=== PATIENT | male | born 2000 | race Caucasian/White ===

== ENCOUNTER 2022-01-16 23:44 | Inpatient (IN) ==
--- NOTE | 2022-01-17 00:24 | Emergency Department Note ---
Impression & Plan Suicidal ideation Admit to [facility]. ED Provider Note NAME: VINCENT WALTON AGE: 21 SEX: M ARRIVES VIA: Walk-In INFORMANT: Patient ED PROVIDER(S): Courtney Vanessa DO CHIEF COMPLAINT: Anxious and suicidal PLAN: Disposition: Admit to 3 S. Condition: Stable MEDICAL DECISION MAKING: This is a 21-year-old male patient who presents to the emergency department with feelings of anxiety, paranoia and feeling suicidal. Patient had been admitted to [facility] in December for 1 week but over the past 3 days his symptoms have worsened. The patient had been calling crisis more frequently over the past couple of days. He voiced suicidal thoughts to myself, the shoe caser and nursing staff here. He is willing to admit himself voluntarily for inpatient psychiatric care. Patient was medically cleared and accepted to [facility]. Triage Nursing notes reviewed and agree with them. Vital Signs: reviewed and unremarkable Differential diagnosis: Mood disorder, thought disorder, drug abuse, suicidal ideation Diagnostics interpreted by me: Laboratory studies: See below HPI: 21/M arrives for evaluation of paranoia, anxiety and anger issues. Patient has become increasingly anxious and paranoid over the past 3 days and has feelings that he just wants to . Patient explains that he just wants to waste away because he feels like he is a burden to his family. The patient has been calling crisis multiple times a day over the past 3 days. He had been admitted to [facility] psych facility on December 17 for 6 days. He felt that he was doing okay until 3 days ago when symptoms seem to have worsened. He got into an argument this evening with his [id number]-[id number] who told him to get out of their home in he returned to his own home and was concerned about being alone. ROS: See above HPI for pertinent positives & negatives. A total of 10 systems reviewed and were otherwise negative. PAST MEDICAL HISTORY:Depression, anxiety PAST SURGICAL HISTORY:None SOCIAL HISTORY:Patient currently lives alone. He does have the medical marijuana card. He denies any alcohol use. HOME MEDICATIONS:See list ALLERGIES:See list VITALS:See Below PHYSICAL EXAMINATION: HEENT: Head - normocephalic and atraumatic. Pupils are equal, round, and reactive to light. Extraocular eye muscles are intact, and sclera are anicteric. Nose - moist nasal mucosa without discharge. Mouth - moist buccal mucosa. Oropharynx is nonerythematous and there is no tonsillar exudate or raymond a noted. Neck: Supple; no cervical lymphadenopathy Heart: Regular rate and rhythm. There is a normal S1 and S2 with no murmurs, clicks, or gallops appreciated. Lungs: Clear to auscultation bilaterally with no wheezes, rales, or rhonchi. Abdomen: Soft, completely nontender, nondistended, with good bowel sounds. There are no palpable pulsatile masses or hepatosplenomegaly. There is no guarding, rigidity, or rebound noted. Extremities: No evidence of cyanosis, clubbing, or edema. There are easily palpable peripheral pulses. Skin: warm and dry with good turgor and no rashes. Psych: Normal affect; denies any drug or alcohol use today. Patient stated that he just wants to because he feels as if he is a burden to his family. He describes an episode of holding a knife to his throat in September but no specific plan for suicide since then. Willing to admit himself voluntarily for inpatient psychiatric care. ED COURSE: Times/Reassessments: 2355: Patient was evaluated in room A7. Laboratory studies were drawn as above. The patient was felt to be medically cleared. He was willing to admit himself voluntarily for inpatient psychiatric care. He was evaluated by 3 S. They have accepted him for admission. He will go to the floor around morning shift change. Courtney Vanessa, DO Past Med/Surg History Social History Smoking Status: Former smoker Preferred Language: Telugu Feels Safe at Home: Hesitant to Answer Allergies Allergies Allergy/AdvReac Type Severity Reaction Status Date / Time cat dander Allergy Unverified 01/17/22 04:15 Penicillins Allergy Unverified 01/17/22 04:15 Home Meds Home Medications Medication Instructions Recorded Confirmed bupropion HCl 300 mg 24 hr tablet, 300 mg PO QAM 01/17/22 01/17/22 extended release (Wellbutrin XL) fexofenadine 180 mg tablet 180 mg PO DAILY 01/17/22 01/17/22 propranolol 60 mg capsule,24 60 mg PO DAILY 01/17/22 01/17/22 hr,extended release sertraline 100 mg tablet (Zoloft) 100 mg PO DAILY 01/17/22 01/17/22 Results & Data (ED) Vital Signs Vital Signs - 24 hr 01/16/22 23:47 Temperature 35.8 C L Temperature Source Temporal Artery Scan Pulse Rate 99 H Respiratory Rate 18 Blood Pressure 139/90 Blood Pressure Mean 106 Pulse Oximetry 98 Oxygen Delivery Method Room Air Sepsis Recent Fever Within 48 Hours No Sepsis New/Unexplained Change in Mental Status No Sepsis Action Taken by Nursing No Action Required Laboratory Data Result diagrams: 01/17/22 00:33 01/17/22 00:33 Lab Results 01/17/22 01/17/22 01/17/22 Range/Units 00:20 00: 00:33 WBC 6.54 (4.8-10.8) K/uL RBC 5.11 (4.7-6.1) M/uL Hgb 16.2 (14.0-18.0) g/dL Hct 45.0 (42-52) % MCV 88.1 (80-100) fL MCH 31.7 (25-34) pg MCHC 36.0 (32-36) g/dL RDW Std Deviation 37.2 (36.4-46.3) fL RDW Coeff of Amada 11.5 (11.5-14.5) % Plt Count 205 (130-400) K/uL MPV 9.3 (7.4-10.4) fL Immature Gran % (Auto) 0.2 % Neut % (Auto) 58.0 % Lymph % (Auto) 29.4 % [place] % (Auto) 9.6 % Eos % (Auto) 2.6 % Baso % (Auto) 0.2 % Neut # (Auto) 3.80 (1.4-6.5) K/uL Lymph # (Auto) 1.92 (1.2-3.4) K/uL [place] # (Auto) 0.63 H (0.11-0.59) K/uL Eos # (Auto) 0.17 (0-0.5) K/uL Baso # (Auto) 0.01 (0-0.2) K/uL Immature Gran # (Auto) 0.01 (0.00-0.02) K/uL Sodium (136-145) mmol/L Potassium (3.5-5.1) mmol/L Chloride (98-107) mmol/L Carbon Dioxide (21-32) mmol/L Anion Gap (3-11) BUN (6-23) mg/dl Creatinine (0.6-1.4) mg/dl Est Cr Clr Drug Dosing ml/min Est GFR ( Amer) ml/min Est GFR (Non-Af Amer) ml/min BUN/Creatinine Ratio (10-20) Glucose (70-99(Fasting)) mg/dl Calcium (8.5-10.1) mg/dl Total Bilirubin (0.2-1.0) mg/dl AST (13-39) U/L ALT (7-52) U/L Alkaline Phosphatase (34-104) U/L Total Protein (6.0-8.3) gm/dl Albumin (3.4-5.0) gm/dl Globulin (2.5-4.0) gm/dl Albumin/Globulin Ratio (0.9-2) TSH (0.300-4.500) uIu/ml Urine Color Urine Appearance (Clear) Urine pH (4.5-7.5) Ur Specific Theresa (1.000-1.030) Urine Protein (Negative) Urine Glucose (UA) (Negative) Urine Ketones (Negative) Urine Blood (Negative) Urine Nitrite (Negative) Urine Bilirubin (Negative) Urine Urobilinogen (Negative) Ur Leukocyte Esterase (Negative) Salicylates (3.0-30) mg/dl Urine Opiates Screen Neg (Neg) Ur Methadone, Qual Neg (Neg) Acetaminophen (10-30) ug/ml Urine Barbiturates Neg (Neg) Ur Phencyclidine (PCP) Neg (Neg) U Amphetamin/Meth Scrn Neg (Neg) MDMA (Ecstasy) Screen Pos H (Neg) U Benzodiazepines Scrn Neg (Neg) Ur Cocaine Metabolite Neg (Neg) U Marijuana (THC) Screen Pos H (Neg) Ethyl Alcohol mg/dL (<10.0) mg/dl SARS-CoV-2, RNA, NAAT NEGATIVE (NEGATIVE) 01/17/22 01/17/22 01/17/22 Range/Units 00:33 00:33 00:33 WBC (4.8-10.8) K/uL RBC (4.7-6.1) M/uL Hgb (14.0-18.0) g/dL Hct (42-52) % MCV (80-100) fL MCH (25-34) pg MCHC (32-36) g/dL RDW Std Deviation (36.4-46.3) fL RDW Coeff of Amada (11.5-14.5) % Plt Count (130-400) K/uL MPV (7.4-10.4) fL Immature Gran % (Auto) % Neut % (Auto) % Lymph % (Auto) % [place] % (Auto) % Eos % (Auto) % Baso % (Auto) % Neut # (Auto) (1.4-6.5) K/uL Lymph # (Auto) (1.2-3.4) K/uL [place] # (Auto) (0.11-0.59) K/uL Eos # (Auto) (0-0.5) K/uL Baso # (Auto) (0-0.2) K/uL Immature Gran # (Auto) (0.00-0.02) K/uL Sodium 133 L (136-145) mmol/L Potassium 3.6 (3.5-5.1) mmol/L Chloride 102 (98-107) mmol/L Carbon Dioxide 21 (21-32) mmol/L Anion Gap 10 (3-11) BUN 14 (6-23) mg/dl Creatinine 1.05 (0.6-1.4) mg/dl Est Cr Clr Drug Dosing 130.5 ml/min Est GFR ( Amer) 117.9 ml/min Est GFR (Non-Af Amer) 101.7 ml/min BUN/Creatinine Ratio 13.3 (10-20) Glucose 79 (70-99(Fasting)) mg/dl Calcium 9.3 (8.5-10.1) mg/dl Total Bilirubin 0.8 (0.2-1.0) mg/dl AST 14 (13-39) U/L ALT 11 (7-52) U/L Alkaline Phosphatase 69 (34-104) U/L Total Protein 7.2 (6.0-8.3) gm/dl Albumin 4.4 (3.4-5.0) gm/dl Globulin 2.8 (2.5-4.0) gm/dl Albumin/Globulin Ratio 1.6 (0.9-2) TSH 3.195 (0.300-4.500) uIu/ml Urine Color Urine Appearance (Clear) Urine pH (4.5-7.5) Ur Specific Theresa (1.000-1.030) Urine Protein (Negative) Urine Glucose (UA) (Negative) Urine Ketones (Negative) Urine Blood (Negative) Urine Nitrite (Negative) Urine Bilirubin (Negative) Urine Urobilinogen (Negative) Ur Leukocyte Esterase (Negative) Salicylates < 3.0 L (3.0-30) mg/dl Urine Opiates Screen (Neg) Ur Methadone, Qual (Neg) Acetaminophen < 3 L (10-30) ug/ml Urine Barbiturates (Neg) Ur Phencyclidine (PCP) (Neg) U Amphetamin/Meth Scrn (Neg) MDMA (Ecstasy) Screen (Neg) U Benzodiazepines Scrn (Neg) Ur Cocaine Metabolite (Neg) U Marijuana (THC) Screen (Neg) Ethyl Alcohol mg/dL (<10.0) mg/dl SARS-CoV-2, RNA, NAAT (NEGATIVE) 01/17/22 01/17/22 Range/Units 00:33 02:25 WBC (4.8-10.8) K/uL RBC (4.7-6.1) M/uL Hgb (14.0-18.0) g/dL Hct (42-52) % MCV (80-100) fL MCH (25-34) pg MCHC (32-36) g/dL RDW Std Deviation (36.4-46.3) fL RDW Coeff of Amada (11.5-14.5) % Plt Count (130-400) K/uL MPV (7.4-10.4) fL Immature Gran % (Auto) % Neut % (Auto) % Lymph % (Auto) % [place] % (Auto) % Eos % (Auto) % Baso % (Auto) % Neut # (Auto) (1.4-6.5) K/uL Lymph # (Auto) (1.2-3.4) K/uL [place] # (Auto) (0.11-0.59) K/uL Eos # (Auto) (0-0.5) K/uL Baso # (Auto) (0-0.2) K/uL Immature Gran # (Auto) (0.00-0.02) K/uL Sodium (136-145) mmol/L Potassium (3.5-5.1) mmol/L Chloride (98-107) mmol/L Carbon Dioxide (21-32) mmol/L Anion Gap (3-11) BUN (6-23) mg/dl Creatinine (0.6-1.4) mg/dl Est Cr Clr Drug Dosing ml/min Est GFR ( Amer) ml/min Est GFR (Non-Af Amer) ml/min BUN/Creatinine Ratio (10-20) Glucose (70-99(Fasting)) mg/dl Calcium (8.5-10.1) mg/dl Total Bilirubin (0.2-1.0) mg/dl AST (13-39) U/L ALT (7-52) U/L Alkaline Phosphatase (34-104) U/L Total Protein (6.0-8.3) gm/dl Albumin (3.4-5.0) gm/dl Globulin (2.5-4.0) gm/dl Albumin/Globulin Ratio (0.9-2) TSH (0.300-4.500) uIu/ml Urine Color Yellow Urine Appearance Clear (Clear) Urine pH 5.5 (4.5-7.5) Ur Specific Theresa 1.004 (1.000-1.030) Urine Protein Negative (Negative) Urine Glucose (UA) Negative (Negative) Urine Ketones 1+ H (Negative) Urine Blood Negative (Negative) Urine Nitrite Negative (Negative) Urine Bilirubin Negative (Negative) Urine Urobilinogen Negative (Negative) Ur Leukocyte Esterase Negative (Negative) Salicylates (3.0-30) mg/dl Urine Opiates Screen (Neg) Ur Methadone, Qual (Neg) Acetaminophen (10-30) ug/ml Urine Barbiturates (Neg) Ur Phencyclidine (PCP) (Neg) U Amphetamin/Meth Scrn (Neg) MDMA (Ecstasy) Screen (Neg) U Benzodiazepines Scrn (Neg) Ur Cocaine Metabolite (Neg) U Marijuana (THC) Screen (Neg) Ethyl Alcohol mg/dL < 10.0 (<10.0) mg/dl SARS-CoV-2, RNA, NAAT (NEGATIVE) Administered Medications Discontinued Medications Hydroxyzine HCl (Hydroxyzine Hcl 25 Mg Tab) 25 mg PO NOW STA Stop: 01/17/22 01:13 Last Admin: 01/17/22 01:22 Dose: 25 mg Documented by: [id number] Discharge Plan Visit Data Chief Complaint: Mental Health Evaluation Stated Complaint: MENTAL HEALTH EVAL ED Provider: Courtney Vanessa Discharge Problem: Suicidal ideation Forms Stand Alone Forms: My [facility], Suicide Prevention Resources Prescriptions Prescriptions: No Action propranolol 60 mg Capsule,Extended Release 24 Hr 60 mg PO DAILY RF: 0 sertraline [Zoloft] 100 mg Tablet 100 mg PO DAILY RF: 0 fexofenadine [Nataliya] 180 mg Tablet 180 mg PO DAILY RF: 0 bupropion HCl [Wellbutrin XL] 300 mg Tablet Extended Release 24 Hr 300 mg PO QAM RF: 0 Referrals Referrals: PCP,NO [Primary Care Provider] -
[2022-01-17 00:43] LABS: Basophils # (auto) 0.01 K/uL (0-0.2); Basophils % (auto) 0.2 %; Eosinophils # (auto) 0.17 K/uL (0-0.5); Eosinophils % (auto) 2.6 %; Hemoglobin 16.2 g/dL (14.0-18.0); Immature Granulocytes # (auto) 0.01 K/uL (0.00-0.02); Immature Granulocytes % (auto) 0.2 %; Lymphocytes # (auto) 1.92 K/uL (1.2-3.4); Lymphocytes % (auto) 29.4 %; Mean Corpuscular Hemoglobin 31.7 pg (25-34); Mean Corpuscular Volume 88.1 fL (80-100); Mean Platelet Volume 9.3 fL (7.4-10.4); Monocytes # (auto) 0.63 K/uL (0.11-0.59); Monocytes % (auto) 9.6 %; Platelet Count 205 K/uL (130-400); RDW Coefficient of Variation 11.5 % (11.5-14.5); RDW Standard Deviation 37.2 fL (36.4-46.3); Red Blood Count 5.11 M/uL (4.7-6.1); White Blood Count 6.54 K/uL (4.8-10.8)
--- NOTE | 2022-01-17 00:59 | Emergency Department Note ---
ED Visit Note The patient was signed out to me pending disposition. Bed search has been suspended. Signed out to Dr. Zamora. No issues during my portion of the shift when the patient was under my care. .
[2022-01-17 01:05] LABS: Amphetamines+Metham, Urine Neg (Neg); Barbiturates, Urine Neg (Neg); Benzodiazepine, Urine Neg (Neg); Cocaine, Urine Neg (Neg); MDMA (Ecstacy), Urine Pos (Neg); Methadone, Urine Neg (Neg); Opiate, Urine Neg (Neg); Phencyclidine, Urine Neg (Neg)
[2022-01-17 01:07] LABS: Albumin Globulin Ratio 1.6 (0.9-2); Albumin Level 4.4 gm/dl (3.4-5.0); BUN Creatinine Ratio 13.3 (10-20); Bilirubin,Total 0.8 mg/dl (0.2-1.0); Calcium 9.3 mg/dl (8.5-10.1); Creatinine Clr Calc Pharmacy 130.5 ml/min; Est GFR (African American) 117.9 ml/min; Est GFR (Non-African American) 101.7 ml/min; Globulin 2.8 gm/dl (2.5-4.0); Potassium 3.6 mmol/L (3.5-5.1); Total Protein 7.2 gm/dl (6.0-8.3)
[2022-01-17] MEDS ORDERED: hydrOXYzine HCl 25 MG TAB PO STA (01:12)
[2022-01-17 01:20] LABS: Acetaminophen < 3 ug/ml (10-30); Salicylate < 3.0 mg/dl (3.0-30)
[2022-01-17 02:33] LABS: Appearance Urine Clear (Clear); Bilirubin Urine Negative (Negative); Blood Urine Negative (Negative); Color Urine Yellow; Glucose Urine UA Negative (Negative); Ketones Urine 1+ (Negative); Leukocyte Esterase Urine Negative (Negative); Nitrite Urine Negative (Negative); Protein Urine Negative (Negative); Specific Gravity Urine 1.004 (1.000-1.030); Urobilinogen Urine Negative (Negative); pH Urine 5.5 (4.5-7.5)
[2022-01-17] MEDS ORDERED: SODIUM CHLORIDE 0.65% NA SOLN 45 ML (OCEAN) PRN (08:12)
[2022-01-17] MEDS ORDERED: ACETAMINOPHEN 325 MG TAB PO PRN (08:12)
[2022-01-17] MEDS ORDERED: MAGNESIUM HYDROXIDE SUSP 30 ML UDC PO PRN (08:12)
[2022-01-17] MEDS ORDERED: BISMUTH SUBSALICYLATE LIQD 236 ML PO PRN (08:12)
[2022-01-17] MEDS ORDERED: ALUMINUM/MAGNESIUM SUSP 30 ML UDC PO PRN (08:12)
[2022-01-17] MEDS ORDERED: FLUARIX QUADRIVALENT 0.5 ML SYR IM ONE (08:31)
--- NOTE | 2022-01-17 12:19 | History & Physical ---
Date of Service January 17, 2022 Impression / Recommendations Impression 21 yo man with history of depression, BPD, anxiety and marijuana use disorder who presents for worsening depression and SI. Diagnostically consistent with unspecified psychosis most likely MDD with psychotic features versus substance- induced from marijuana versus primary psychotic disorder. The patient is deemed unstable and requires psychiatric hospitalization for diagnostic clarification, safety and stabilization, medication management and development of further coping skills. Discussed medication treatment options in detail. Discussed risks, benefits and alternatives. he consents to increase of sertraline to further target depression and anxiety. he also consents to starting zyprexa to target psychotic symptoms, help with anxiety, sleep and appetite. Reviewed side effects of his medications including but not limited to review of seizure potential with Wellbutrin, counseled on black box warning of potential for emergence of or increased SI and need to let staff know should this occur or should they feel unsafe, and metabolic/movement (TD) side effects with zyprexa. AIMS 0. Motivational interviewing regarding marijuana use and potential consequences of worsening depression, anxiety and psychosis/paranoia. He is contemplative about avoiding future use as he does not want to risk legal consequences. MNPR for psychiatric condition due to acute psychosis with limited ability to tolerate extended interactions with others and significant paranoia. 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 The patient will participate in group, recreational, and milieu therapies and will be offered additional individual and family sessions as clinically appropriate. -fasting lipids and glucose labs in the morning -zyprexa 2.5 mg BID for sleep and paranoia and anxiety -increase sertraline to 150mg qd -Continue with Wellbutrin XL 300mg qd and prior to admission propranolol for essential tremor Inventory Assets Strengths: outpatient therapist, supportive family Needs: medication adjustment, reduction of substance use, additional coping skills, safety planning Risk Factors Assessment Acute risk is high given SI, depression, psychosis. Chronic risk is low given few non-modifiable risk factors. Most significant modifiable risk factors are avoidance of marijuana use, treatment of psychosis and depression and additional coping skills and safety planning. Male: Yes : Yes Do You Have Access To A Gun?: No Health Problems: No Mental Health Diagnoses: Yes Substance Use Disorders: No Previous Attempt: No Family History of Suicide: No Previous Psychiatric Hospitalization: Yes Hopelessness: Yes Smoker: No Protective Factors Assessment Employed: No Stable Relationships: Yes Supportive Family: Yes Good Rapport with Provider: Yes Psychiatric History Identifying Data VINCENT WALTON is a 21-year-old man who currently lives in [place] alone, has a history of depression, anxiety and BPD, and was admitted on 01/17/22 07:47 on a 201 voluntary commitment for paranoia, depression and SI. Chief Complaint "I have no drive to live on this Earth". History of Present Illness Vincent presents for psychiatric admission for worsening depression, anxiety and intensifying SI with thoughts of potentially overdosing on fentanyl, cutting his throat with a knife or restricting oral intake in the context of multiple recent stressors including the of his father in September 2020 and recent moves from [place] to [place] back to [place]. He's been utilizing crisis services over the last 3 days and felt more acutely suicidal after an argument with his [id number] resulting in him having to return to his own apartment and fears of being able to remain safe on his own. He identifies multiple symptoms of depression including worthlessness, low self-esteem, poor sleep (~4 hours per night), decreased appetite and SI with thoughts of being a burden to his family and wanting to "waste away". Has been experiencing more chronic SI over the last few months which "comes in waves". Anxiety has also increased significantly with fears about something bad happening to his family, decreased sleep, hypervigilance, racing heart, tremors, and ruminative worries. He notes it's been really stressful to live on his own due to worries about not following the lease which he attributes to his medical marijuana and ensuring he purifies the air enough. When asked about psychotic symptoms has significant difficulty responding with closing his eyes, breathing deeply then responds "the paranoia is there". States he bought wax in [place] and worries about getting legal charges from that because he bough 12g. Worries about his mother getting in trouble for his purchase of marijuana. Notes he's also concerned he'll lose his lease at his apartment due to having marijuana paraphernalia so he threw it all out yesterday. He is currently prescribed Wellbutrin XL 300mg and sertraline 100mg qd. He feels Wellbutrin is maybe helping with his energy. He's unsure if the sertraline has been helping. Psychiatric ROS notable for denial of mk, marijuana use, increased anger/irritability recently, no history of violence/aggression. Past Psychiatric History Current Psychiatric Diagnosis: Borderline Personality Disorder, MELINA, Depression Outpatient Services: Ellie Sorensen at [facility] in [place] once a week for therapy since Oct 2020; [facility] set him up with psychiatry services through [facility] in [place], but he missed his appointments since being discharged from his inpatient treatment Previous Psych Admissions: [facility] Dec 2021 for 6 days, [facility] fall 2018 Do You Have Access To A Gun?: No History of Previous Suicide Attempt: No (rehearsal of holding knife to neck in Sep 2021) Past Medication Trials: history of lexapro and fluoxetine; hx Adderall in high school Past Head Trauma/Neuro History History of Concussion/Seizure: Yes (fever induced seizure at age 6) Allergies Allergy/AdvReac Type Severity Reaction Status Date / Time cat dander Allergy Unverified 01/17/22 04:15 Penicillins Allergy Unverified 01/17/22 04:15 Home Medications Medication Instructions Recorded Confirmed Type bupropion HCl 300 mg 24 hr tablet, 300 mg PO QAM 01/17/22 01/17/22 History extended release (Wellbutrin XL) fexofenadine 180 mg tablet 180 mg PO DAILY 01/17/22 01/17/22 History propranolol 60 mg capsule,24 60 mg PO DAILY 01/17/22 01/17/22 History hr,extended release sertraline 100 mg tablet (Zoloft) 100 mg PO DAILY 01/17/22 01/17/22 History Family History Family History of: Depression, Anxiety, Psychosis/ThoughtDisorder (2 pateral uncles with schizoaffective disorder), Alcoholism/Drug Abuse (maternal uncle ), Other-List under Comment (ASD in maternal cousin ) and Bipolar (paternal aunt with BPAD) Alcohol History Hx of Alcohol Use Over the Past 12 Months: Yes (occasional) AUDIT Total Score: 3 Smoking Use Have You Smoked or Used Tobacco Products in the Last 30 Days: No Smoking Status: Former smoker Substance History Hx of Prescription Med Misuse Over the Past 12 Months: No Hx of Over the Counter Med Misuse Over the Past 12 Months: No Hx of Inhalent Misuse Over the Past 12 Months: No Hx of Organic Substance Use Over the Past 12 Months: Yes (Medical marijuana) Hx of Illegal Substances/Street Drug Use Over Past 12 Months: No Problems as a Result of Past Substance Use: None Identified Smokes vape pen several times per day but threw out all his marijuana yesterday due to his fears of being kicked off his lease. Likes that marijuana helps him sleep, used to visit [place] and smoke with friends. Doesn't like that it causes him increased paranoia "especially when you live in a state where it's outlawed, makes you feel like you could a federal life sentence for using marijuana". Personal History Living Arrangements: Apartment Childhood: Grew up in [facility] but after his father in Sep 2020 the family moved to [place] April 2021. He returned to [place] in September 2021 to visit with his brother and [id number] and ended up staying. He then moved into his own apartment in Dec 2021. Highest Grade Completed: High School Graduate Employment Status: Unemployed (in the past worked as a casino cage cashier ) Marital Status: Single Beliefs That Will Affect Care: None Current Legal Problems: No Hx Legal Problems: No Hx Traumatic Life Events: Yes Patient History Medical History (Updated 01/17/22 @ 13:41 by Melisa Galindo MD) Essential tremor Social History Smoking Status: Former smoker Preferred Language: Armenian Communication Ability: Effective Underwriter Mortgage Loan Required: No Beliefs That Will Affect Care: None Feels Safe at Home: Hesitant to Answer Assistive Devices: None Review of Systems Review of Systems: All systems reviewed & are unremarkable except as noted in HPI & below Physical Exam Psychiatric: Orientation: alert and oriented x 3 Apperance: appropriately dressed, appropriately groomed and + disheveled Eye Contact: + poor eye contact Motor Behavior: steady gait and station and no abnormal motor movements Speech: normal rate/rhythm/volume of speech Affect: + flat affect Mood: + depressed mood and + anxious mood Thought Process: + thought blocking, + tangential thought process, + looseness of associations and + concrete thought process Thought Content: + paranoid and + persecution Suicidal Thoughts: denies suicidal intent (feels safe here); + reports suicidal thoughts and + reports suicidal plan Homicidal Thoughts: denies homicidal thoughts Hallucinations: no auditory hallucinations (denies but appears to be actively responding) and no visual hallucinations Cognition: recent memory grossly intact, remote memory grossly intact and language grossly intact; + attention not intact Estimated Intelligence: consistent with education level Insight: + limited insight Judgement: + limited judgement Vital Signs (Past 24 Hours): Last Vital Signs Temp 36.0 C L 01/17/22 08:14 Pulse 97 H 01/17/22 08:14 Resp 18 01/17/22 08:14 BP 114/58 L 01/17/22 08:14 Pulse Ox 99 01/17/22 08:14 Exam Statement: A physical exam was performed in the ED by Dr. Vanessa for the purposes of medical clearance. I accept that physical as correct and adequate for the purposes of the inpatient physical exam. Results & Data ([facility]) Laboratory Results Laboratory Results - last 24 hr 01/17/22 01/17/22 01/17/22 00:20 00:20 00:20 WBC RBC Hgb Hct MCV MCH MCHC RDW Std Deviation RDW Coeff of Amada Plt Count MPV Immature Gran % (Auto) Neut % (Auto) Lymph % (Auto) [place] % (Auto) Eos % (Auto) Baso % (Auto) Neut # (Auto) Lymph # (Auto) [place] # (Auto) Eos # (Auto) Baso # (Auto) Immature Gran # (Auto) Sodium Potassium Chloride Carbon Dioxide Anion Gap BUN Creatinine Est Cr Clr Drug Dosing Est GFR ( Amer) Est GFR (Non-Af Amer) BUN/Creatinine Ratio Glucose Calcium Total Bilirubin AST ALT Alkaline Phosphatase Total Protein Albumin Globulin Albumin/Globulin Ratio TSH Urine Color Urine Appearance Urine pH Ur Specific [place] Urine Protein Urine Glucose (UA) Urine Ketones Urine Blood Urine Nitrite Urine Bilirubin Urine Urobilinogen Ur Leukocyte Esterase Salicylates Urine Opiates Screen Neg Ur Methadone, Qual Neg Acetaminophen Urine Barbiturates Neg Ur Phencyclidine (PCP) Neg U Amphetamin/Meth Scrn Neg Urine MDEA Pending MDMA (Ecstasy) Screen Pos H MDMA Pending Urine MDMA Pending U Benzodiazepines Scrn Neg Ur Cocaine Metabolite Neg U Marijuana (THC) Screen Pos H U Marijuana THC Carboxy Pending Drug Screen Comment Pending Ethyl Alcohol mg/dL SARS-CoV-2, RNA, NAAT NEGATIVE 01/17/22 01/17/22 01/17/22 00:33 00:33 00:33 WBC 6.54 RBC 5.11 Hgb 16.2 Hct 45.0 MCV 88.1 MCH 31.7 MCHC 36.0 RDW Std Deviation 37.2 RDW Coeff of Amada 11.5 Plt Count 205 MPV 9.3 Immature Gran % (Auto) 0.2 Neut % (Auto) 58.0 Lymph % (Auto) 29.4 [place] % (Auto) 9.6 Eos % (Auto) 2.6 Baso % (Auto) 0.2 Neut # (Auto) 3.80 Lymph # (Auto) 1.92 [place] # (Auto) 0.63 H Eos # (Auto) 0.17 Baso # (Auto) 0.01 Immature Gran # (Auto) 0.01 Sodium 133 L Potassium 3.6 Chloride 102 Carbon Dioxide 21 Anion Gap 10 BUN 14 Creatinine 1.05 Est Cr Clr Drug Dosing 130.5 Est GFR ( Amer) 117.9 Est GFR (Non-Af Amer) 101.7 BUN/Creatinine Ratio 13.3 Glucose 79 Calcium 9.3 Total Bilirubin 0.8 AST 14 ALT 11 Alkaline Phosphatase 69 Total Protein 7.2 Albumin 4.4 Globulin 2.8 Albumin/Globulin Ratio 1.6 TSH 3.195 Urine Color Urine Appearance Urine pH Ur Specific [place] Urine Protein Urine Glucose (UA) Urine Ketones Urine Blood Urine Nitrite Urine Bilirubin Urine Urobilinogen Ur Leukocyte Esterase Salicylates Urine Opiates Screen Ur Methadone, Qual Acetaminophen Urine Barbiturates Ur Phencyclidine (PCP) U Amphetamin/Meth Scrn Urine MDEA MDMA (Ecstasy) Screen MDMA Urine MDMA U Benzodiazepines Scrn Ur Cocaine Metabolite U Marijuana (THC) Screen U Marijuana THC Carboxy Drug Screen Comment Ethyl Alcohol mg/dL SARS-CoV-2, RNA, NAAT 01/17/22 01/17/22 01/17/22 00:33 00:33 02:25 WBC RBC Hgb Hct MCV MCH MCHC RDW Std Deviation RDW Coeff of Amada Plt Count MPV Immature Gran % (Auto) Neut % (Auto) Lymph % (Auto) [place] % (Auto) Eos % (Auto) Baso % (Auto) Neut # (Auto) Lymph # (Auto) [place] # (Auto) Eos # (Auto) Baso # (Auto) Immature Gran # (Auto) Sodium Potassium Chloride Carbon Dioxide Anion Gap BUN Creatinine Est Cr Clr Drug Dosing Est GFR ( Amer) Est GFR (Non-Af Amer) BUN/Creatinine Ratio Glucose Calcium Total Bilirubin AST ALT Alkaline Phosphatase Total Protein Albumin Globulin Albumin/Globulin Ratio TSH Urine Color Yellow Urine Appearance Clear Urine pH 5.5 Ur Specific [place] 1.004 Urine Protein Negative Urine Glucose (UA) Negative Urine Ketones 1+ H Urine Blood Negative Urine Nitrite Negative Urine Bilirubin Negative Urine Urobilinogen Negative Ur Leukocyte Esterase Negative Salicylates < 3.0 L Urine Opiates Screen Ur Methadone, Qual Acetaminophen < 3 L Urine Barbiturates Ur Phencyclidine (PCP) U Amphetamin/Meth Scrn Urine MDEA MDMA (Ecstasy) Screen MDMA Urine MDMA U Benzodiazepines Scrn Ur Cocaine Metabolite U Marijuana (THC) Screen U Marijuana THC Carboxy Drug Screen Comment Ethyl Alcohol mg/dL < 10.0 SARS-CoV-2, RNA, NAAT Current Inpatient Medications Current Inpatient Medications: Current Inpatient Medications Acetaminophen (Acetaminophen 325 Mg Tab) 650 mg PO Q4H PRN PRN Reason: Headache or Minor Fever Stop: 02/16/22 08:11 Al Hydrox/Mg Hydrox/Simethicone (Aluminum/Magnesium Susp 30 Ml Udc) 30 ml PO Q4H PRN PRN Reason: GI Upset Stop: 02/16/22 08:11 Bismuth Subsalicylate (Bismuth Subsalicylate Liqd 236 Ml) 15 ml PO PRN PRN PRN Reason: Loose Stool Stop: 02/16/22 08:11 Hydroxyzine HCl (Hydroxyzine Hcl 25 Mg Tab) 50 mg PO HSZ PRN PRN Reason: Insomnia Stop: 02/16/22 08:11 Hydroxyzine HCl (Hydroxyzine Hcl 25 Mg Tab) 25 mg PO Q4H PRN PRN Reason: Anxiety Stop: 02/16/22 08:11 Magnesium Hydroxide (Magnesium Hydroxide Susp 30 Ml Udc) 30 ml PO DAILY PRN PRN Reason: Constipation Stop: 02/16/22 08:11 Sodium Chloride (Sodium Chloride 0.65% Na Soln 45 Ml ([place])) 1 - 2 sprays NA PRN PRN PRN Reason: Nasal Dryness/Congestion Stop: 02/16/22 08:11
[2022-01-17] MEDS ORDERED: PROPRANOLOL HCL 60 MG LA CAP PO ONE (13:42)
[2022-01-17] MEDS ORDERED: SERTRALINE HCL 100 MG TABLET PO ONE (13:42)
[2022-01-17] MEDS: OLANZAPINE 2.5 MG TAB PO PRN (18:10)
[2022-01-17] MEDS: OLANZAPINE 2.5 MG TAB PO SCH (21:45)
--- NOTE | 2022-01-18 08:32 | Psychiatric Progress Note ---
Date of Service January 18, 2022 Impression / Recommendations Impression 21 yo man with history of depression, BPD, anxiety and marijuana use disorder who presents for worsening depression and SI. Diagnostically consistent with unspecified psychosis most likely MDD with psychotic features versus substance- induced from marijuana versus primary psychotic disorder. The patient is deemed unstable and requires psychiatric hospitalization for diagnostic clarification, safety and stabilization, medication management and development of further coping skills. 01/18/22: Excessive daytime fatigue so will discontinue qAM zyprexa and continue with qhs dose which helped with sleep and less mood lability today, no evidence of responding to internal stimuli today. Fasting labs reviewed and normal with exception of low HDL, encouraged increased physical activity to increase HDL over time. 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 01/17/22: The patient was admitted to the [facility] ([facility]) on q15 min checks (behavioral with suicide precautions) for safety. The patient will participate in group, recreational, and milieu therapies and will be offered additional individual and family sessions as clinically appropriate. -fasting lipids and glucose labs in the morning -zyprexa 2.5 mg BID for sleep and paranoia and anxiety -increase sertraline to 150mg qd -Continue with Wellbutrin XL 300mg qd and prior to admission propranolol for essential tremor Inventory Assets Strengths: outpatient therapist, supportive family Needs: medication adjustment, reduction of substance use, additional coping skills, safety planning Risk Factors Assessment Male: Yes : Yes Do You Have Access To A Gun?: No Health Problems: No Mental Health Diagnoses: Yes Substance Use Disorders: No Previous Attempt: No Family History of Suicide: No Previous Psychiatric Hospitalization: Yes Hopelessness: Yes Smoker: No Protective Factors Assessment Employed: No Stable Relationships: Yes Supportive Family: Yes Good Rapport with Provider: Yes Interval History Identifying Information VINCENT WALTON is a 21-year-old man who currently lives in [place] alone, has a history of depression, anxiety and BPD, and was admitted on 01/17/22 07:47 on a 201 voluntary commitment for paranoia, depression and SI. Chief Complaint "I'm tired". Review of Systems Sleep Information Total Hours of Sleep: 10.75 Meal Information Percent Meal Consumed - Breakfast: 0 Percent Meal Consumed - Lunch: 75 Percent Meal Consumed - Dinner: 100 Nutrition Comment: pt. resting Subjective Subjective Patient was seen & assessed and interval progress reviewed with treatment team michael davis and social work. Had fasting labs. A lot of mood lability, couldn't tolerate groups, periods of inappropriate laughter yesterday afternoon and evening. Slept for over 10 hours last night. Fatigued today, reports his mood is "tired". Denies any other side effects from the olanzapine and liked that he slept well. Discussed eliminating morning dose to reduce excessive daytime fatigue which he consents to. Physical Exam Psychiatric Orientation: alert and oriented x 3 Apperance: appropriately dressed, appropriately groomed and + disheveled Eye Contact: + poor eye contact Motor Behavior: steady gait and station and no abnormal motor movements Speech: normal rate/rhythm/volume of speech Affect: + flat affect Mood: + depressed mood Thought Process: + thought blocking and + concrete thought process Thought Content: + paranoid and + persecution Suicidal Thoughts: denies suicidal intent (feels safe here); + reports suicidal thoughts and + reports suicidal plan Homicidal Thoughts: denies homicidal thoughts Hallucinations: no auditory hallucinations and no visual hallucinations Cognition: recent memory grossly intact, remote memory grossly intact and language grossly intact; + attention not intact Estimated Intelligence: consistent with education level Insight: + limited insight Judgement: + limited judgement Vital Signs (Past 24 Hours) Last Vital Signs Temp 36.3 C L 01/18/22 06:39 Pulse 77 01/18/22 06:39 Resp 16 01/18/22 06:39 BP 104/77 01/18/22 06:39 Pulse Ox 99 01/17/22 08:14 Results & Data ([facility]) Laboratory Results Laboratory Results - last 24 hr 01/18/22 07:53 Fasting Glucose Pending Triglycerides Pending Cholesterol Pending LDL Cholesterol, Calc Pending VLDL Cholesterol, Calc Pending HDL Cholesterol Pending Cholesterol/HDL Ratio Pending Current Inpatient Medications Current Inpatient Medications: Current Inpatient Medications Acetaminophen (Acetaminophen 325 Mg Tab) 650 mg PO Q4H PRN PRN Reason: Headache or Minor Fever Stop: 02/16/22 08:11 Al Hydrox/Mg Hydrox/Simethicone (Aluminum/Magnesium Susp 30 Ml Udc) 30 ml PO Q4H PRN PRN Reason: GI Upset Stop: 02/16/22 08:11 Bismuth Subsalicylate (Bismuth Subsalicylate Liqd 236 Ml) 15 ml PO PRN PRN PRN Reason: Loose Stool Stop: 02/16/22 08:11 Bupropion HCl (Bupropion Xl 300 Mg Tabcr) 300 mg PO QAM JALEN Stop: 02/17/22 08:59 Fexofenadine HCl (Fexofenadine Hcl 180 Mg Tab) 180 mg PO DAILY JALEN Stop: 02/17/22 08:59 Hydroxyzine HCl (Hydroxyzine Hcl 25 Mg Tab) 50 mg PO HSZ PRN PRN Reason: Insomnia Stop: 02/16/22 08:11 Hydroxyzine HCl (Hydroxyzine Hcl 25 Mg Tab) 25 mg PO Q4H PRN PRN Reason: Anxiety Stop: 02/16/22 08:11 Magnesium Hydroxide (Magnesium Hydroxide Susp 30 Ml Udc) 30 ml PO DAILY PRN PRN Reason: Constipation Stop: 02/16/22 08:11 Olanzapine (Olanzapine 2.5 Mg Tab) 2.5 mg PO BID JALEN Stop: 02/16/22 20:59 Last Admin: 01/17/22 21:45 Dose: 2.5 mg Documented by: Olanzapine (Olanzapine 2.5 Mg Tab) 2.5 mg PO DAILY PRN PRN Reason: psychosis Stop: 02/17/22 08:59 Last Admin: 01/17/22 18:10 Dose: 2.5 mg Documented by: Propranolol HCl (Propranolol Hcl 60 Mg [place]) 60 mg PO DAILY JALEN Stop: 02/17/22 08:59 Sertraline HCl (Sertraline Hcl 100 Mg Tablet) 100 mg PO DAILY JALEN Stop: 02/17/22 08:59 Sodium Chloride (Sodium Chloride 0.65% Na Soln 45 Ml ([place])) 1 - 2 sprays NA PRN PRN PRN Reason: Nasal Dryness/Congestion Stop: 02/16/22 08:11 Mental Health & Subst Abuse Tx Therapist Name of Therapist: Ellie Sorensen Date of Therapist Appointment: 01/18/22
[2022-01-18 08:43] LABS: Chol HDL Ratio 3.9 (0-5)
[2022-01-18] MEDS: buPROPion XL 300 MG TABCR PO SCH (09:27)
[2022-01-18] MEDS: FEXOFENADINE HCL 180 MG TAB PO SCH (09:27)
[2022-01-18] MEDS: PROPRANOLOL HCL 60 MG LA CAP PO SCH (09:27)
[2022-01-18] MEDS: OLANZAPINE 2.5 MG TAB PO SCH ×2 (09:27→21:07)
[2022-01-18] MEDS: SERTRALINE HCL 100 MG TABLET PO SCH (09:28)
[2022-01-18] MEDS: hydrOXYzine HCl 25 MG TAB PO PRN ×3 (19:16→23:39)
--- NOTE | 2022-01-19 08:38 | Psychiatric Progress Note ---
Date of Service January 19, 2022 Impression / Recommendations Impression 21 yo man with history of depression, BPD, anxiety and marijuana use disorder who presents for worsening depression and SI. Diagnostically consistent with unspecified psychosis most likely MDD with psychotic features versus substance- induced from marijuana versus primary psychotic disorder. The patient is deemed unstable and requires psychiatric hospitalization for diagnostic clarification, safety and stabilization, medication management and development of further coping skills. 01/19/22: Continues to make odd and bizarre statements at times, more alert today with lower dose of zyprexa. Consents to sertraline increase tomorrow. Will consider tapering Wellbutrin if psychosis symptoms continue given dopaminergic activity. Poor sleep could be from untreated NEREYDA, unclear if current insurance would cover CPAP as outpatient as he states this is reason for no longer having CPAP, will see if social work can investigate further alongside process of insurance application for PA. 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 01/18/22: Discontinue qAM dose of zyprexa due to excessive daytime fatigue, continue with 2.5 mg qhs and sertraline and Wellbutrin. 01/17/22: The patient was admitted to the [facility] ([facility] mental health unit) on q15 min checks (behavioral with suicide precautions) for safety. The patient will participate in group, recreational, and milieu therapies and will be offered additional individual and family sessions as clinically appropriate. -fasting lipids and glucose labs in the morning -zyprexa 2.5 mg BID for sleep and paranoia and anxiety -sertraline to 100mg qd -Continue with Wellbutrin XL 300mg qd and prior to admission propranolol for essential tremor Inventory Assets Strengths: outpatient therapist, supportive family Needs: medication adjustment, reduction of substance use, additional coping skills, safety planning Risk Factors Assessment Male: Yes : Yes Do You Have Access To A Gun?: No Health Problems: No Mental Health Diagnoses: Yes Substance Use Disorders: No Previous Attempt: No Family History of Suicide: No Previous Psychiatric Hospitalization: Yes Hopelessness: Yes Smoker: No Protective Factors Assessment Employed: No Stable Relationships: Yes Supportive Family: Yes Good Rapport with Provider: Yes Interval History Identifying Information VINCENT WALTON is a 21-year-old man who currently lives in [place] alone, has a history of depression, anxiety and BPD, and was admitted on 01/17/22 07:47 on a 201 voluntary commitment for paranoia, depression and SI. Chief Complaint "I'm ok". Review of Systems Sleep Information Total Hours of Sleep: 5.5 Meal Information Percent Meal Consumed - Breakfast: 50 Percent Meal Consumed - Lunch: 0 Percent Meal Consumed - Dinner: 0 Nutrition Comment: Requested to eat later Subjective Subjective Patient was seen & assessed and interval progress reviewed with treatment team nursing and social work. More alert in the evening and more appropriate at times but then making odd statements during community meeting. Very limited po intake yesterday. Described feeling "hollow". Today has been more alert but still endorses some fatigue from zyprexa but also finds it helpful and requested prn dose at noon. Less sleep last night. Denies SI. States he feels less paranoid about marijuana but unclear why this is the case as his explanation for why he feels reassured is difficult to follow. Also stated he used to use a CPAP and had sleep study confirming NEREYDA but hasn't been able to afford CPAP since April 2021 due to insurance changes and high cost for machine each month. Physical Exam Psychiatric Orientation: alert and oriented x 3 Apperance: appropriately dressed, appropriately groomed and + disheveled Eye Contact: + fair eye contact Motor Behavior: steady gait and station and no abnormal motor movements Speech: normal rate/rhythm/volume of speech Affect: + flat affect Mood: + depressed mood and + anxious mood Thought Process: + thought blocking and + concrete thought process Thought Content: + paranoid and + persecution Suicidal Thoughts: denies suicidal thoughts Homicidal Thoughts: denies homicidal thoughts Hallucinations: no auditory hallucinations and no visual hallucinations Cognition: recent memory grossly intact, remote memory grossly intact and language grossly intact; + attention not intact Estimated Intelligence: consistent with education level Insight: + limited insight Judgement: + limited judgement Vital Signs (Past 24 Hours) Last Vital Signs Temp 36.4 C L 01/19/22 06:36 Pulse 106 H 01/19/22 06:37 Resp 16 01/19/22 06:36 BP 118/66 01/19/22 06:37 Pulse Ox 99 01/17/22 08:14 Results & Data ([facility]) Laboratory Results Laboratory Results - last 24 hr 01/18/22 07:53 Fasting Glucose 81 Triglycerides 73 Cholesterol 138 LDL Cholesterol, Calc 88 VLDL Cholesterol, Calc 15 HDL Cholesterol 35 Cholesterol/HDL Ratio 3.9 Current Inpatient Medications Current Inpatient Medications: Current Inpatient Medications Acetaminophen (Acetaminophen 325 Mg Tab) 650 mg PO Q4H PRN PRN Reason: Headache or Minor Fever Stop: 02/16/22 08:11 Al Hydrox/Mg Hydrox/Simethicone (Aluminum/Magnesium Susp 30 Ml Udc) 30 ml PO Q4H PRN PRN Reason: GI Upset Stop: 02/16/22 08:11 Bismuth Subsalicylate (Bismuth Subsalicylate Liqd 236 Ml) 15 ml PO PRN PRN PRN Reason: Loose Stool Stop: 02/16/22 08:11 Bupropion HCl (Bupropion Xl 300 Mg Tabcr) 300 mg PO QAM JALEN Stop: 02/17/22 08:59 Last Admin: 01/18/22 09:27 Dose: 300 mg Documented by: Fexofenadine HCl (Fexofenadine Hcl 180 Mg Tab) 180 mg PO DAILY JALEN Stop: 02/17/22 08:59 Last Admin: 01/18/22 09:27 Dose: 180 mg Documented by: Hydroxyzine HCl (Hydroxyzine Hcl 25 Mg Tab) 50 mg PO HSZ PRN PRN Reason: Insomnia Stop: 02/16/22 08:11 Last Admin: 01/18/22 23:39 Dose: 50 mg Documented by: Hydroxyzine HCl (Hydroxyzine Hcl 25 Mg Tab) 25 mg PO Q4H PRN PRN Reason: Anxiety Stop: 02/16/22 08:11 Last Admin: 01/18/22 19:16 Dose: 25 mg Documented by: Magnesium Hydroxide (Magnesium Hydroxide Susp 30 Ml Udc) 30 ml PO DAILY PRN PRN Reason: Constipation Stop: 02/16/22 08:11 Olanzapine (Olanzapine 2.5 Mg Tab) 2.5 mg PO DAILY PRN PRN Reason: psychosis Stop: 02/17/22 08:59 Last Admin: 01/17/22 18:10 Dose: 2.5 mg Documented by: Olanzapine (Olanzapine 2.5 Mg Tab) 2.5 mg PO HS JALEN Stop: 02/17/22 21:59 Last Admin: 01/18/22 21:07 Dose: 2.5 mg Documented by: Propranolol HCl (Propranolol Hcl 60 Mg [place]) 60 mg PO DAILY JALEN Stop: 02/17/22 08:59 Last Admin: 01/18/22 09:27 Dose: 60 mg Documented by: Sertraline HCl (Sertraline Hcl 100 Mg Tablet) 100 mg PO DAILY JALEN Stop: 02/17/22 08:59 Last Admin: 01/18/22 09:28 Dose: 100 mg Documented by: Sodium Chloride (Sodium Chloride 0.65% Na Soln 45 Ml ([place])) 1 - 2 sprays NA PRN PRN PRN Reason: Nasal Dryness/Congestion Stop: 02/16/22 08:11 Mental Health & Subst Abuse Tx Therapist Name of Therapist: Ellie Sorensen Date of Therapist Appointment: 01/18/22
[2022-01-19] MEDS: SERTRALINE HCL 100 MG TABLET PO SCH (09:33)
[2022-01-19] MEDS: FEXOFENADINE HCL 180 MG TAB PO SCH (09:34)
[2022-01-19] MEDS: buPROPion XL 300 MG TABCR PO SCH (09:34)
[2022-01-19] MEDS: PROPRANOLOL HCL 60 MG LA CAP PO SCH (09:34)
[2022-01-19] MEDS: OLANZAPINE 2.5 MG TAB PO PRN (12:52)
[2022-01-19] MEDS: hydrOXYzine HCl 25 MG TAB PO PRN (14:17)
[2022-01-19] MEDS: OLANZAPINE 2.5 MG TAB PO SCH (22:04)
--- NOTE | 2022-01-20 08:50 | Psychiatric Progress Note ---
Date of Service January 20, 2022 Impression / Recommendations Impression 21 yo man with history of depression, BPD, anxiety and marijuana use disorder who presents for worsening depression and SI. Diagnostically consistent with unspecified psychosis most likely MDD with psychotic features versus substance- induced from marijuana versus primary psychotic disorder. The patient is deemed unstable and requires psychiatric hospitalization for diagnostic clarification, safety and stabilization, medication management and development of further coping skills. 01/20/22: Continues to make odd and bizarre statements at times, requesting frequent prns for anxiety and more intense SI today. Will consider tapering Wellbutrin if psychosis symptoms continue given dopaminergic activity. Working on medical assistance application. Ongoing depression with psychosis (especially of more persecutory themes/nature) most consistent with MDD with psychotic features, substance-induced seeming less likely given severity of mood symptoms. 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 01/19/22: Increase sertraline to 150mg qd, continue zyprexa 2.5 mg qhs, continue Wellbutrin XL 300mg. 01/18/22: Discontinue qAM dose of zyprexa due to excessive daytime fatigue, continue with 2.5 mg qhs and sertraline and Wellbutrin. 01/17/22: The patient was admitted to the [facility] ([facility] health unit) on q15 min checks (behavioral with suicide precautions) for safety. The patient will participate in group, recreational, and milieu therapies and will be offered additional individual and family sessions as clinically appropriate. -fasting lipids and glucose labs in the morning -zyprexa 2.5 mg BID for sleep and paranoia and anxiety -sertraline to 100mg qd -Continue with Wellbutrin XL 300mg qd and prior to admission propranolol for essential tremor Inventory Assets Strengths: outpatient therapist, supportive family Needs: medication adjustment, reduction of substance use, additional coping skills, safety planning Risk Factors Assessment Male: Yes : Yes Do You Have Access To A Gun?: No Health Problems: No Mental Health Diagnoses: Yes Substance Use Disorders: No Previous Attempt: No Family History of Suicide: No Previous Psychiatric Hospitalization: Yes Hopelessness: Yes Smoker: No Protective Factors Assessment Employed: No Stable Relationships: Yes Supportive Family: Yes Good Rapport with Provider: Yes Interval History Identifying Information VINCENT WALTON is a 21-year-old man who currently lives in [place] alone, has a history of depression, anxiety and BPD, and was admitted on 01/17/22 07:47 on a 201 voluntary commitment for paranoia, depression and SI. Chief Complaint "I'm hollow but the medication is helping". Review of Systems Sleep Information Total Hours of Sleep: 6 Meal Information Percent Meal Consumed - Breakfast: 20 Percent Meal Consumed - Lunch: 30 Percent Meal Consumed - Dinner: 60 Nutrition Comment: Requested to eat later Subjective Subjective Patient was seen & assessed and interval progress reviewed with treatment team nursing and social work. Engaging more in groups. Requesting frequent prns due to getting easily overwhelmed and remains very labile. Still endorsing feeling "very hopeless" and stating "this is no way to live". Continues to have poor boundaries at times. Endorses more intense SI in the middle of the day and then requesting prns "due to everything I'm talking about". Denies side effects from the medication. Had prolonged meeting with social work and endorsed significant depression with hopelessness, past trauma, strained family dynamics. Physical Exam Psychiatric Orientation: alert and oriented x 3 Apperance: appropriately dressed, appropriately groomed and + disheveled Eye Contact: + fair eye contact Motor Behavior: steady gait and station and no abnormal motor movements Speech: normal rate/rhythm/volume of speech Affect: + flat affect Mood: + depressed mood and + anxious mood Thought Process: + thought blocking, + tangential thought process, + looseness of associations and + concrete thought process Thought Content: + paranoid and + persecution Suicidal Thoughts: denies suicidal thoughts and denies suicidal intent (feels safe here); + reports suicidal plan Homicidal Thoughts: denies homicidal thoughts Hallucinations: no auditory hallucinations and no visual hallucinations Cognition: recent memory grossly intact, remote memory grossly intact and language grossly intact; + attention not intact Estimated Intelligence: consistent with education level Insight: + limited insight Judgement: + limited judgement Vital Signs (Past 24 Hours) Last Vital Signs Temp 36.9 C 01/20/22 06:00 Pulse 58 L 01/20/22 06:48 Resp 16 01/20/22 06:00 BP 121/84 01/20/22 06:48 Pulse Ox 99 01/17/22 08:14 Results & Data ([facility]) Current Inpatient Medications Current Inpatient Medications: Current Inpatient Medications Acetaminophen (Acetaminophen 325 Mg Tab) 650 mg PO Q4H PRN PRN Reason: Headache or Minor Fever Stop: 02/16/22 08:11 Al Hydrox/Mg Hydrox/Simethicone (Aluminum/Magnesium Susp 30 Ml Udc) 30 ml PO Q4H PRN PRN Reason: GI Upset Stop: 02/16/22 08:11 Bismuth Subsalicylate (Bismuth Subsalicylate Liqd 236 Ml) 15 ml PO PRN PRN PRN Reason: Loose Stool Stop: 02/16/22 08:11 Bupropion HCl (Bupropion Xl 300 Mg Tabcr) 300 mg PO QAM JALEN Stop: 02/17/22 08:59 Last Admin: 01/19/22 09:34 Dose: 300 mg Documented by: Fexofenadine HCl (Fexofenadine Hcl 180 Mg Tab) 180 mg PO DAILY JALEN Stop: 02/17/22 08:59 Last Admin: 01/19/22 09:34 Dose: 180 mg Documented by: Hydroxyzine HCl (Hydroxyzine Hcl 25 Mg Tab) 50 mg PO HSZ PRN PRN Reason: Insomnia Stop: 02/16/22 08:11 Last Admin: 01/18/22 23:39 Dose: 50 mg Documented by: Hydroxyzine HCl (Hydroxyzine Hcl 25 Mg Tab) 25 mg PO Q4H PRN PRN Reason: Anxiety Stop: 02/16/22 08:11 Last Admin: 01/19/22 14:17 Dose: 25 mg Documented by: Magnesium Hydroxide (Magnesium Hydroxide Susp 30 Ml Udc) 30 ml PO DAILY PRN PRN Reason: Constipation Stop: 02/16/22 08:11 Olanzapine (Olanzapine 2.5 Mg Tab) 2.5 mg PO DAILY PRN PRN Reason: psychosis Stop: 02/17/22 08:59 Last Admin: 01/19/22 12:52 Dose: 2.5 mg Documented by: Olanzapine (Olanzapine 2.5 Mg Tab) 2.5 mg PO HS JALEN Stop: 02/17/22 21:59 Last Admin: 01/19/22 22:04 Dose: 2.5 mg Documented by: Propranolol HCl (Propranolol Hcl 60 Mg [place]) 60 mg PO DAILY JALEN Stop: 02/17/22 08:59 Last Admin: 01/19/22 09:34 Dose: 60 mg Documented by: Sertraline HCl (Sertraline Hcl 50 Mg Tablet) 150 mg PO DAILY JALEN Stop: 02/19/22 08:59 Sodium Chloride (Sodium Chloride 0.65% Na Soln 45 Ml ([place])) 1 - 2 sprays NA PRN PRN PRN Reason: Nasal Dryness/Congestion Stop: 02/16/22 08:11 Mental Health & Subst Abuse Tx Therapist Name of Therapist: Ellie Sorensen Date of Therapist Appointment: 01/18/22
[2022-01-20] MEDS: PROPRANOLOL HCL 60 MG LA CAP PO SCH (09:25)
[2022-01-20] MEDS: FEXOFENADINE HCL 180 MG TAB PO SCH (09:26)
[2022-01-20] MEDS: SERTRALINE HCL 50 MG TABLET PO SCH (09:26)
[2022-01-20] MEDS: buPROPion XL 300 MG TABCR PO SCH (09:26)
[2022-01-20] MEDS: OLANZAPINE 2.5 MG TAB PO PRN (10:05)
[2022-01-20] MEDS: hydrOXYzine HCl 25 MG TAB PO PRN ×2 (11:12→19:20)
[2022-01-20] MEDS ORDERED: OLANZapine 5 MG TABLET PO STA (13:53)
[2022-01-20] MEDS: OLANZAPINE 2.5 MG TAB PO SCH (20:31)
[2022-01-20] MEDS ORDERED: OLANZAPINE 2.5 MG TAB PO ONE (20:47)
--- NOTE | 2022-01-21 08:47 | Psychiatric Progress Note ---
Date of Service January 21, 2022 Impression / Recommendations Impression 21 yo man with history of depression, BPD, anxiety and marijuana use disorder who presents for worsening depression and SI. Diagnostically consistent with unspecified psychosis most likely MDD with psychotic features versus substance- induced from marijuana versus primary psychotic disorder. The patient is deemed unstable and requires psychiatric hospitalization for diagnostic clarification, safety and stabilization, medication management and development of further coping skills. 01/21/22: Continues to present with symptoms of psychosis. Social work spoke with his brother who confirmed history of some trauma as well as extensive cannabis use. [facility] inpatient records reviewed and notable for discharge diagnoses of MDD, cannabis use disorder, MELINA and r/o BPD. No psychosis during that admission. Continues to make odd and bizarre statements at times, requesting frequent prns for anxiety and periods of significant thought blocking and odd stare. Will tapering Wellbutrin given ongoing psychosis symptoms. Completed medical assistance application. Ongoing depression with psychosis (especially of more persecutory themes/nature) most consistent with MDD with psychotic features, substance-induced seeming less likely given severity of mood symptoms but remains on differential. 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 Decreasing Wellbutrin to 150mg qd due to dopaminergic activity potentially contributing to psychosis. 01/20/22: Continue sertraline, will increase to zyprexa 5mg qhs, continue Wellbutrin. 01/19/22: Increase sertraline to 150mg qd, continue zyprexa 2.5 mg qhs, continue Wellbutrin XL 300mg. 01/18/22: Discontinue qAM dose of zyprexa due to excessive daytime fatigue, continue with 2.5 mg qhs and sertraline and Wellbutrin. 01/17/22: The patient was admitted to the [facility] ([facility] inpatient mental health unit) on q15 min checks (behavioral with suicide precautions) for safety. The patient will participate in group, recreational, and milieu therapies and will be offered additional individual and family sessions as clinically appropriate. -fasting lipids and glucose labs in the morning -zyprexa 2.5 mg BID for sleep and paranoia and anxiety -sertraline to 100mg qd -Continue with Wellbutrin XL 300mg qd and prior to admission propranolol for essential tremor Inventory Assets Strengths: outpatient therapist, supportive family Needs: medication adjustment, reduction of substance use, additional coping skills, safety planning Risk Factors Assessment Male: Yes : Yes Do You Have Access To A Gun?: No Health Problems: No Mental Health Diagnoses: Yes Substance Use Disorders: No Previous Attempt: No Family History of Suicide: No Previous Psychiatric Hospitalization: Yes Hopelessness: Yes Smoker: No Protective Factors Assessment Employed: No Stable Relationships: Yes Supportive Family: Yes Good Rapport with Provider: Yes Interval History Identifying Information VINCENT WALTON is a 21-year-old man who currently lives in [place] alone, has a history of depression, anxiety and BPD, and was admitted on 01/17/22 07:47 on a 201 voluntary commitment for paranoia, depression and SI. Chief Complaint "I'm tired". Review of Systems Sleep Information Total Hours of Sleep: 6.75 Meal Information Percent Meal Consumed - Breakfast: 40 Percent Meal Consumed - Lunch: 33 Percent Meal Consumed - Dinner: 90 Nutrition Comment: Requested to eat later Subjective Subjective Patient was seen & assessed and interval progress reviewed with treatment team nursing and social work. Gets easily upset with any discussion of his family, last night became upset during group and had to retreat to his room. Discussed his desire to be able to smoke marijuana/cravings as it helps him cope. Remains withdrawn at times, today reports feeling "tired" but at lower doses of zyprexa requests frequent prns so he would like to keep dose as it is. He was sleeping in the afternoon when attempts were made to check in again. Physical Exam Psychiatric Orientation: alert and oriented x 3 Apperance: appropriately dressed, appropriately groomed and + disheveled Eye Contact: + fair eye contact and + poor eye contact Motor Behavior: steady gait and station and no abnormal motor movements Speech: normal rate/rhythm/volume of speech Affect: + flat affect Mood: + depressed mood and + anxious mood Thought Process: + thought blocking, + tangential thought process, + looseness of associations and + concrete thought process Thought Content: + paranoid and + persecution Suicidal Thoughts: + reports suicidal thoughts (intermittent, feels safe here) Homicidal Thoughts: denies homicidal thoughts Hallucinations: no auditory hallucinations and no visual hallucinations Cognition: recent memory grossly intact, remote memory grossly intact and language grossly intact; + attention not intact Estimated Intelligence: consistent with education level Insight: + limited insight Judgement: + limited judgement Vital Signs (Past 24 Hours) Last Vital Signs Temp 36.4 C L 01/21/22 06:00 Pulse 76 01/21/22 06:51 Resp 16 01/20/22 06:00 BP 116/77 01/21/22 06:51 Pulse Ox 99 01/17/22 08:14 Results & Data ([facility]) Current Inpatient Medications Current Inpatient Medications: Current Inpatient Medications Acetaminophen (Acetaminophen 325 Mg Tab) 650 mg PO Q4H PRN PRN Reason: Headache or Minor Fever Stop: 02/16/22 08:11 Al Hydrox/Mg Hydrox/Simethicone (Aluminum/Magnesium Susp 30 Ml Udc) 30 ml PO Q4H PRN PRN Reason: GI Upset Stop: 02/16/22 08:11 Bismuth Subsalicylate (Bismuth Subsalicylate Liqd 236 Ml) 15 ml PO PRN PRN PRN Reason: Loose Stool Stop: 02/16/22 08:11 Bupropion HCl (Bupropion Xl 300 Mg Tabcr) 300 mg PO QAM JALEN Stop: 02/17/22 08:59 Last Admin: 01/20/22 09:26 Dose: 300 mg Documented by: Fexofenadine HCl (Fexofenadine Hcl 180 Mg Tab) 180 mg PO DAILY JALEN Stop: 02/17/22 08:59 Last Admin: 01/20/22 09:26 Dose: 180 mg Documented by: Hydroxyzine HCl (Hydroxyzine Hcl 25 Mg Tab) 50 mg PO HSZ PRN PRN Reason: Insomnia Stop: 02/16/22 08:11 Last Admin: 01/18/22 23:39 Dose: 50 mg Documented by: Hydroxyzine HCl (Hydroxyzine Hcl 25 Mg Tab) 25 mg PO Q4H PRN PRN Reason: Anxiety Stop: 02/16/22 08:11 Last Admin: 01/20/22 19:20 Dose: 25 mg Documented by: Magnesium Hydroxide (Magnesium Hydroxide Susp 30 Ml Udc) 30 ml PO DAILY PRN PRN Reason: Constipation Stop: 02/16/22 08:11 Olanzapine (Olanzapine 2.5 Mg Tab) 2.5 mg PO DAILY PRN PRN Reason: psychosis Stop: 02/17/22 08:59 Last Admin: 01/20/22 10:05 Dose: 2.5 mg Documented by: Olanzapine (Olanzapine 5 Mg Tablet) 5 mg PO HS JALEN Stop: 02/20/22 21:59 Propranolol HCl (Propranolol Hcl 60 Mg [place]) 60 mg PO DAILY JALEN Stop: 02/17/22 08:59 Last Admin: 01/20/22 09:25 Dose: 60 mg Documented by: Sertraline HCl (Sertraline Hcl 50 Mg Tablet) 150 mg PO DAILY JALEN Stop: 02/19/22 08:59 Last Admin: 01/20/22 09:26 Dose: 150 mg Documented by: Sodium Chloride (Sodium Chloride 0.65% Na Soln 45 Ml ([place])) 1 - 2 sprays NA PRN PRN PRN Reason: Nasal Dryness/Congestion Stop: 02/16/22 08:11 Mental Health & Subst Abuse Tx Therapist Name of Therapist: Ellie Sorensen Date of Therapist Appointment: 01/18/22
[2022-01-21] MEDS: PROPRANOLOL HCL 60 MG LA CAP PO SCH (08:49)
[2022-01-21] MEDS: SERTRALINE HCL 50 MG TABLET PO SCH (08:49)
[2022-01-21] MEDS: buPROPion XL 300 MG TABCR PO SCH (08:49)
[2022-01-21] MEDS: FEXOFENADINE HCL 180 MG TAB PO SCH (08:49)
[2022-01-21 10:18] LABS: MDA negative; MDEA negative; MDMA (Ecstasy) Urine, Confirm negative; Marijuana Quant, GCMS Urine 222 ng/mL (<5)
[2022-01-21] MEDS: OLANZAPINE 2.5 MG TAB PO PRN (12:18)
[2022-01-21] MEDS: OLANZapine 5 MG TABLET PO SCH (21:25)
--- NOTE | 2022-01-22 08:54 | Psychiatric Progress Note ---
Date of Service January 22, 2022 Impression / Recommendations Impression 21 yo man with history of depression, BPD, anxiety and marijuana use disorder who presents for worsening depression and SI. Diagnostically consistent with unspecified psychosis most likely MDD with psychotic features versus substance- induced from marijuana versus primary psychotic disorder. The patient is deemed unstable and requires psychiatric hospitalization for diagnostic clarification, safety and stabilization, medication management and development of further coping skills. 01/22/22: Some improvement in psychotic symptoms today, not isolating to his room, engaging appropriately and denies SI today. Continues to have periods of thought blocking and some ongoing periods of mood lability vs paranoia. Goal of limiting daytime zyprexa use due to fatigue and if he continues to show steady improvement could likely decrease zyprexa at qhs back to 2.5 mg since he is quite sensitive to the effects. Ongoing motivational interviewing regarding marijuana use. Seems to be less anxious on lower dose of Wellbutrin, will continue with 150mg for now. 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 01/21/22: Continue with sertraline and zyprexa. Decreasing Wellbutrin to 150mg qd due to dopaminergic activity potentially contributing to psychosis. 01/20/22: Continue sertraline, will increase to zyprexa 5mg qhs, continue Wellbutrin. 01/19/22: Increase sertraline to 150mg qd, continue zyprexa 2.5 mg qhs, continue Wellbutrin XL 300mg. 01/18/22: Discontinue qAM dose of zyprexa due to excessive daytime fatigue, continue with 2.5 mg qhs and sertraline and Wellbutrin. 01/17/22: The patient was admitted to the [facility] ([facility] mental health unit) on q15 min checks (behavioral with suicide precautions) for safety. The patient will participate in group, recreational, and milieu therapies and will be offered additional individual and family sessions as clinically appropriate. -fasting lipids and glucose labs in the morning -zyprexa 2.5 mg BID for sleep and paranoia and anxiety -sertraline to 100mg qd -Continue with Wellbutrin XL 300mg qd and prior to admission propranolol for essential tremor Inventory Assets Strengths: outpatient therapist, supportive family Needs: medication adjustment, reduction of substance use, additional coping skills, safety planning Risk Factors Assessment Male: Yes : Yes Do You Have Access To A Gun?: No Health Problems: No Mental Health Diagnoses: Yes Substance Use Disorders: No Previous Attempt: No Family History of Suicide: No Previous Psychiatric Hospitalization: Yes Hopelessness: Yes Smoker: No Protective Factors Assessment Employed: No Stable Relationships: Yes Supportive Family: Yes Good Rapport with Provider: Yes Interval History Identifying Information VINCENT WALTON is a 21-year-old man who currently lives in [place] alone, has a history of depression, anxiety and BPD, and was admitted on 01/17/22 07:47 on a 201 voluntary commitment for paranoia, depression and SI. Chief Complaint "[]". Review of Systems Sleep Information Total Hours of Sleep: 6 Meal Information Percent Meal Consumed - Breakfast: 100 Percent Meal Consumed - Lunch: 100 Percent Meal Consumed - Dinner: 0 Nutrition Comment: Patient drowsy, will eat later Subjective Subjective Patient was seen & assessed and interval progress reviewed with treatment team nursing and social work. Still requesting prn zyprexa and then napping. Describes feeling like his "brain is in a fog". Slightly better evening. Collateral from brother of frequent marijuana use (all day long) and worsened symptoms after marijuana use increased. Less thought blocking last night and able to participate more appropriately in groups. Set some appropriate goals of setting more structure in his life and states he's willing to decrease his marijuana use, remains precontemplative about abstaining from use. Denies SI today stating "I want to live" but also now feeling more overwhelmed by this shift in mindset as it means "now I need to make plans for my life like getting a job". He continues to feel fatigued by zyprexa if he uses a day time prn, reviewed goal of limiting prn use unless he is feeling extremely overwhelmed and otherwise to try using Vistaril. He likes the zyprexa at [facility]. Feels less anxio us today on lower dose of Wellbutrin. Physical Exam Psychiatric Orientation: alert and oriented x 3 Apperance: appropriately dressed, appropriately groomed and + disheveled Eye Contact: + fair eye contact Motor Behavior: steady gait and station and no abnormal motor movements Speech: normal rate/rhythm/volume of speech Affect: + constricted affect Mood: + depressed mood and + anxious mood Thought Process: goal directed thought process, + thought blocking and + concrete thought process Thought Content: reality based without delusions; not paranoid and no persecution Suicidal Thoughts: denies suicidal thoughts Homicidal Thoughts: denies homicidal thoughts Hallucinations: no auditory hallucinations and no visual hallucinations Cognition: recent memory grossly intact, remote memory grossly intact and language grossly intact; + attention not intact Estimated Intelligence: consistent with education level Insight: + limited insight Judgement: + limited judgement Vital Signs (Past 24 Hours) Last Vital Signs Temp 36.5 C 01/22/22 06:00 Pulse 86 01/22/22 06:14 Resp 16 01/22/22 06:00 BP 117/71 01/22/22 06:14 Pulse Ox 99 01/17/22 08:14 Results & Data ([facility]) Laboratory Results Laboratory Results - last 24 hr 01/17/22 00:20 Urine MDEA negative MDMA negative Urine MDMA negative U Marijuana THC Carboxy 222 H Drug Screen Comment SEE NOTE Current Inpatient Medications Current Inpatient Medications: Current Inpatient Medications Acetaminophen (Acetaminophen 325 Mg Tab) 650 mg PO Q4H PRN PRN Reason: Headache or Minor Fever Stop: 02/16/22 08:11 Al Hydrox/Mg Hydrox/Simethicone (Aluminum/Magnesium Susp 30 Ml Udc) 30 ml PO Q4H PRN PRN Reason: GI Upset Stop: 02/16/22 08:11 Bismuth Subsalicylate (Bismuth Subsalicylate Liqd 236 Ml) 15 ml PO PRN PRN PRN Reason: Loose Stool Stop: 02/16/22 08:11 Bupropion HCl (Bupropion Xl 150 Mg Tabcr) 150 mg PO QAM JALEN Stop: 02/21/22 08:59 Fexofenadine HCl (Fexofenadine Hcl 180 Mg Tab) 180 mg PO DAILY JALEN Stop: 02/17/22 08:59 Last Admin: 01/21/22 08:49 Dose: 180 mg Documented by: Hydroxyzine HCl (Hydroxyzine Hcl 25 Mg Tab) 50 mg PO HSZ PRN PRN Reason: Insomnia Stop: 02/16/22 08:11 Last Admin: 01/18/22 23:39 Dose: 50 mg Documented by: Hydroxyzine HCl (Hydroxyzine Hcl 25 Mg Tab) 25 mg PO Q4H PRN PRN Reason: Anxiety Stop: 02/16/22 08:11 Last Admin: 01/20/22 19:20 Dose: 25 mg Documented by: Magnesium Hydroxide (Magnesium Hydroxide Susp 30 Ml Udc) 30 ml PO DAILY PRN PRN Reason: Constipation Stop: 02/16/22 08:11 Olanzapine (Olanzapine 2.5 Mg Tab) 2.5 mg PO DAILY PRN PRN Reason: psychosis Stop: 02/17/22 08:59 Last Admin: 01/21/22 12:18 Dose: 2.5 mg Documented by: Olanzapine (Olanzapine 5 Mg Tablet) 5 mg PO HS JALEN Stop: 02/20/22 21:59 Last Admin: 01/21/22 21:25 Dose: 5 mg Documented by: Propranolol HCl (Propranolol Hcl 60 Mg [place]) 60 mg PO DAILY JALEN Stop: 02/17/22 08:59 Last Admin: 01/21/22 08:49 Dose: 60 mg Documented by: Sertraline HCl (Sertraline Hcl 50 Mg Tablet) 150 mg PO DAILY JALEN Stop: 02/19/22 08:59 Last Admin: 01/21/22 08:49 Dose: 150 mg Documented by: Sodium Chloride (Sodium Chloride 0.65% Na Soln 45 Ml ([place])) 1 - 2 sprays NA PRN PRN PRN Reason: Nasal Dryness/Congestion Stop: 02/16/22 08:11 Mental Health & Subst Abuse Tx Therapist Name of Therapist: Ellie Sorensen Date of Therapist Appointment: 01/18/22
[2022-01-22] MEDS: buPROPion XL 150 MG TABCR PO SCH (10:05)
[2022-01-22] MEDS: FEXOFENADINE HCL 180 MG TAB PO SCH (10:05)
[2022-01-22] MEDS: PROPRANOLOL HCL 60 MG LA CAP PO SCH (10:05)
[2022-01-22] MEDS: SERTRALINE HCL 50 MG TABLET PO SCH (10:06)
[2022-01-22] MEDS: hydrOXYzine HCl 25 MG TAB PO PRN (12:25)
[2022-01-22] MEDS: OLANZapine 5 MG TABLET PO SCH (22:07)
[2022-01-23] MEDS: SERTRALINE HCL 50 MG TABLET PO SCH (08:50)
[2022-01-23] MEDS: PROPRANOLOL HCL 60 MG LA CAP PO SCH (08:51)
[2022-01-23] MEDS: buPROPion XL 150 MG TABCR PO SCH (08:51)
[2022-01-23] MEDS: FEXOFENADINE HCL 180 MG TAB PO SCH (08:51)
[2022-01-23] MEDS: hydrOXYzine HCl 25 MG TAB PO PRN ×2 (11:07→21:00)
--- NOTE | 2022-01-23 13:29 | Psychiatric Progress Note ---
Date of Service January 23, 2022 Impression / Recommendations Impression 21 yo man with history of depression, BPD, anxiety and marijuana use disorder who presents for worsening depression and SI. Diagnostically consistent with unspecified psychosis most likely MDD with psychotic features versus substance- induced from marijuana versus primary psychotic disorder. The patient is deemed unstable and requires psychiatric hospitalization for diagnostic clarification, safety and stabilization, medication management and development of further coping skills. 01/23/22: as per Dr. Galindo above. Tolerating medication changes. 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 Intervention was greater than 5 min in length and included assessing readiness to quit, advice on how to reduce or abstain, and to set a specific goal for this hospitalization. optical worker will also assist in anticipating barriers to sobriety and in problem-solving for solutions to those problems while arranging for referral to appropriate treatment. He is in precontemplation stage but willing for [facility] referral. 01/22/22: Continue with medications, ongoing motivational interviewing regarding marijuana use. 01/21/22: Continue with sertraline and zyprexa. Decreasing Wellbutrin to 150mg qd due to dopaminergic activity potentially contributing to psychosis. 01/20/22: Continue sertraline, will increase to zyprexa 5mg qhs, continue Wellbutrin. 01/19/22: Increase sertraline to 150mg qd, continue zyprexa 2.5 mg qhs, continue Wellbutrin XL 300mg. 01/18/22: Discontinue qAM dose of zyprexa due to excessive daytime fatigue, continue with 2.5 mg qhs and sertraline and Wellbutrin. 01/17/22: The patient was admitted to the [facility] ([facility] mental health unit) on q15 min checks (behavioral with suicide precautions) for safety. The patient will participate in group, recreational, and milieu therapies and will be offered additional individual and family sessions as clinically appropriate. -fasting lipids and glucose labs in the morning -zyprexa 2.5 mg BID for sleep and paranoia and anxiety -sertraline to 100mg qd -Continue with Wellbutrin XL 300mg qd and prior to admission propranolol for essential tremor Inventory Assets Strengths: outpatient therapist, supportive family Needs: medication adjustment, reduction of substance use, additional coping skills, safety planning Risk Factors Assessment Male: Yes : Yes Do You Have Access To A Gun?: No Health Problems: No Mental Health Diagnoses: Yes Substance Use Disorders: No Previous Attempt: No Family History of Suicide: No Previous Psychiatric Hospitalization: Yes Hopelessness: Yes Smoker: No Protective Factors Assessment Employed: No Stable Relationships: Yes Supportive Family: Yes Good Rapport with Provider: Yes Interval History Identifying Information VINCENT WALTON is a 21-year-old man who currently lives in [place] alone, has a history of depression, anxiety and BPD, and was admitted on 01/17/22 07:47 on a 201 voluntary commitment for paranoia, depression and SI. Chief Complaint "I threw all my weed shit away, I'll just do CBD. I'm done with my brother". Review of Systems Sleep Information Total Hours of Sleep: 6.5 Meal Information Percent Meal Consumed - Breakfast: 100 Percent Meal Consumed - Lunch: 100 Percent Meal Consumed - Dinner: 75 Nutrition Comment: Patient drowsy, will eat later Subjective Subjective Patient was seen & assessed and interval progress reviewed with nursing and social work. Reportedly clearing. States he is tolerating medication and asks to cut Zyprexa dose at discharge. Reviewed that his discharge date is not set and needs to have longer period of stability to truly assess dose. He is willing to have sister and her partner involved in session but not brother. Extensive discussion around MJ use and impact on mood and recommendation for rehab programming. Physical Exam Psychiatric Orientation: alert and oriented x 3 Apperance: appropriately dressed and appropriately groomed Eye Contact: + fair eye contact Motor Behavior: steady gait and station and no abnormal motor movements Speech: normal rate/rhythm/volume of speech Affect: + constricted affect Mood: + anxious mood Thought Process: goal directed thought process Thought Content: reality based without delusions; not paranoid and no persecution Suicidal Thoughts: denies suicidal thoughts, denies suicidal plan and denies suicidal intent (feels safe here) Homicidal Thoughts: denies homicidal thoughts Hallucinations: no auditory hallucinations and no visual hallucinations Cognition: recent memory grossly intact, remote memory grossly intact and language grossly intact Estimated Intelligence: consistent with education level Insight: + limited insight Judgement: + limited judgement Vital Signs (Past 24 Hours) Last Vital Signs Temp 36.4 C L 01/23/22 06:41 Pulse 79 01/23/22 06:41 Resp 16 01/23/22 06:41 BP 103/66 01/23/22 06:41 Pulse Ox 99 01/17/22 08:14 Results & Data ([facility]) Current Inpatient Medications Current Inpatient Medications: Current Inpatient Medications Acetaminophen (Acetaminophen 325 Mg Tab) 650 mg PO Q4H PRN PRN Reason: Headache or Minor Fever Stop: 02/16/22 08:11 Al Hydrox/Mg Hydrox/Simethicone (Aluminum/Magnesium Susp 30 Ml Udc) 30 ml PO Q4H PRN PRN Reason: GI Upset Stop: 02/16/22 08:11 Bismuth Subsalicylate (Bismuth Subsalicylate Liqd 236 Ml) 15 ml PO PRN PRN PRN Reason: Loose Stool Stop: 02/16/22 08:11 Bupropion HCl (Bupropion Xl 150 Mg Tabcr) 150 mg PO QAM JALEN Stop: 02/21/22 08:59 Last Admin: 01/23/22 08:51 Dose: 150 mg Documented by: Fexofenadine HCl (Fexofenadine Hcl 180 Mg Tab) 180 mg PO DAILY JALEN Stop: 02/17/22 08:59 Last Admin: 01/23/22 08:51 Dose: 180 mg Documented by: Hydroxyzine HCl (Hydroxyzine Hcl 25 Mg Tab) 50 mg PO HSZ PRN PRN Reason: Insomnia Stop: 02/16/22 08:11 Last Admin: 01/18/22 23:39 Dose: 50 mg Documented by: Hydroxyzine HCl (Hydroxyzine Hcl 25 Mg Tab) 25 mg PO Q4H PRN PRN Reason: Anxiety Stop: 02/16/22 08:11 Last Admin: 01/23/22 11:07 Dose: 25 mg Documented by: Magnesium Hydroxide (Magnesium Hydroxide Susp 30 Ml Udc) 30 ml PO DAILY PRN PRN Reason: Constipation Stop: 02/16/22 08:11 Olanzapine (Olanzapine 2.5 Mg Tab) 2.5 mg PO DAILY PRN PRN Reason: psychosis Stop: 02/17/22 08:59 Last Admin: 01/21/22 12:18 Dose: 2.5 mg Documented by: Olanzapine (Olanzapine 5 Mg Tablet) 5 mg PO HS JALEN Stop: 02/20/22 21:59 Last Admin: 01/22/22 22:07 Dose: 5 mg Documented by: Propranolol HCl (Propranolol Hcl 60 Mg [place]) 60 mg PO DAILY JALEN Stop: 02/17/22 08:59 Last Admin: 01/23/22 08:51 Dose: 60 mg Documented by: Sertraline HCl (Sertraline Hcl 50 Mg Tablet) 150 mg PO DAILY JALEN Stop: 02/19/22 08:59 Last Admin: 01/23/22 08:50 Dose: 150 mg Documented by: Sodium Chloride (Sodium Chloride 0.65% Na Soln 45 Ml ([place])) 1 - 2 sprays NA PRN PRN PRN Reason: Nasal Dryness/Congestion Stop: 02/16/22 08:11 Mental Health & Subst Abuse Tx Therapist Name of Therapist: Ellie Sorensen Date of Therapist Appointment: 01/18/22
[2022-01-23] MEDS: OLANZapine 5 MG TABLET PO SCH (21:00)
[2022-01-24] MEDS: PROPRANOLOL HCL 60 MG LA CAP PO SCH (08:52)
[2022-01-24] MEDS: buPROPion XL 150 MG TABCR PO SCH (08:53)
[2022-01-24] MEDS: SERTRALINE HCL 50 MG TABLET PO SCH (08:53)
[2022-01-24] MEDS: FEXOFENADINE HCL 180 MG TAB PO SCH (08:53)
--- NOTE | 2022-01-24 15:30 | Psychiatric Progress Note ---
Date of Service January 24, 2022 Impression / Recommendations Impression 21 yo man with history of depression, BPD, anxiety and marijuana use disorder who presents for worsening depression and SI. Diagnostically consistent with unspecified psychosis most likely MDD with psychotic features versus substance- induced from marijuana versus primary psychotic disorder. The patient is deemed unstable and requires psychiatric hospitalization for diagnostic clarification, safety and stabilization, medication management and development of further coping skills. 01/23/22: as per Dr. Galindo above. 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 Family meeting today. Safety planning. 01/23/22: clearer now that substance induced component given level of reported use by brother, patient admits to heavy use and believes he can "just stop if I want to." The patient's use prior to admission was "all consuming" Brief intervention was offered and accepted. Intervention was greater than [address] [facility] and included assessing readiness to quit, advice on how to reduce or abstain, and to set a specific goal for this hospitalization. loft worker will also assist in anticipating barriers to sobriety and in problem-solving for solutions to those problems while arranging for referral to appropriate treatment. He is in precontemplation stage but willing for [facility] referral. 01/22/22: Continue with medications, ongoing motivational interviewing regarding marijuana use. 01/21/22: Continue with sertraline and zyprexa. Decreasing Wellbutrin to 150mg qd due to dopaminergic activity potentially contributing to psychosis. 01/20/22: Continue sertraline, will increase to zyprexa 5mg qhs, continue Wellbutrin. 01/19/22: Increase sertraline to 150mg qd, continue zyprexa 2.5 mg qhs, continue Wellbutrin XL 300mg. 01/18/22: Discontinue qAM dose of zyprexa due to excessive daytime fatigue, continue with 2.5 mg qhs and sertraline and Wellbutrin. 01/17/22: The patient was admitted to the [facility] ([facility] mental health unit) on q15 min checks (behavioral with suicide precautions) for safety. The patient will participate in group, recreational, and milieu therapies and will be offe red additional individual and family sessions as clinically appropriate. -fasting lipids and glucose labs in the morning -zyprexa 2.5 mg BID for sleep and paranoia and anxiety -sertraline to 100mg qd -Continue with Wellbutrin XL 300mg qd and prior to admission propranolol for essential tremor Inventory Assets Strengths: outpatient therapist, supportive family Needs: medication adjustment, reduction of substance use, additional coping skills, safety planning Risk Factors Assessment Male: Yes : Yes Do You Have Access To A Gun?: No Health Problems: No Mental Health Diagnoses: Yes Substance Use Disorders: No Previous Attempt: No Family History of Suicide: No Previous Psychiatric Hospitalization: Yes Hopelessness: Yes Smoker: No Protective Factors Assessment Employed: No Stable Relationships: Yes Supportive Family: Yes Good Rapport with Provider: Yes Interval History Identifying Information VINCENT WALTON is a 21-year-old man who currently lives in [place] alone, has a history of depression, anxiety and BPD, and was admitted on 01/17/22 07:47 on a 201 voluntary commitment for paranoia, depression and SI. Chief Complaint "I felt dizzy just then" then knelt on the floor Review of Systems Sleep Information Total Hours of Sleep: 6.5 Meal Information Percent Meal Consumed - Breakfast: 100 Percent Meal Consumed - Lunch: 100 Percent Meal Consumed - Dinner: 100 Nutrition Comment: Patient drowsy, will eat later Subjective Subjective Patient was seen & assessed and interval progress reviewed with nursing and social work. Reports called brother who hung up on him. Rechecked BP due to lightheadedness 117/64 sitting with p=78' 100/72 p=84, asymptomatic Patient has been seeking a decrease in Zyprexa dose so unclear if related as otherwise no complaints to staff. He doesn't feel he needs it and was surprised at the length of recommended course. He states he will avoid products with THC. Physical Exam Psychiatric Orientation: alert and oriented x 3 Apperance: appropriately dressed and appropriately groomed Eye Contact: + fair eye contact Motor Behavior: steady gait and station and no abnormal motor movements Speech: normal rate/rhythm/volume of speech Affect: euthymic affect Mood: no depressed mood Thought Process: goal directed thought process Thought Content: reality based without delusions; not paranoid and no persecution Suicidal Thoughts: denies suicidal thoughts Homicidal Thoughts: denies homicidal thoughts Hallucinations: no auditory hallucinations and no visual hallucinations Cognition: recent memory grossly intact, remote memory grossly intact and language grossly intact; + attention not intact Estimated Intelligence: consistent with education level Insight: + limited insight Judgement: + limited judgement Vital Signs (Past 24 Hours) Last Vital Signs Temp 36.9 C 01/24/22 06:45 Pulse 74 01/24/22 08:40 Resp 16 01/24/22 06:45 BP 105/58 L 01/24/22 08:40 Pulse Ox 99 01/17/22 08:14 Results & Data ([facility]) Current Inpatient Medications Current Inpatient Medications: Current Inpatient Medications Acetaminophen (Acetaminophen 325 Mg Tab) 650 mg PO Q4H PRN PRN Reason: Headache or Minor Fever Stop: 02/16/22 08:11 Al Hydrox/Mg Hydrox/Simethicone (Aluminum/Magnesium Susp 30 Ml Udc) 30 ml PO Q4H PRN PRN Reason: GI Upset Stop: 02/16/22 08:11 Bismuth Subsalicylate (Bismuth Subsalicylate Liqd 236 Ml) 15 ml PO PRN PRN PRN Reason: Loose Stool Stop: 02/16/22 08:11 Bupropion HCl (Bupropion Xl 150 Mg Tabcr) 150 mg PO QAM JALEN Stop: 02/21/22 08:59 Last Admin: 01/24/22 08:53 Dose: 150 mg Documented by: Fexofenadine HCl (Fexofenadine Hcl 180 Mg Tab) 180 mg PO DAILY JALEN Stop: 02/17/22 08:59 Last Admin: 01/24/22 08:53 Dose: 180 mg Documented by: Hydroxyzine HCl (Hydroxyzine Hcl 25 Mg Tab) 50 mg PO HSZ PRN PRN Reason: Insomnia Stop: 02/16/22 08:11 Last Admin: 01/23/22 21:00 Dose: 50 mg Documented by: Hydroxyzine HCl (Hydroxyzine Hcl 25 Mg Tab) 25 mg PO Q4H PRN PRN Reason: Anxiety Stop: 02/16/22 08:11 Last Admin: 01/23/22 11:07 Dose: 25 mg Documented by: Magnesium Hydroxide (Magnesium Hydroxide Susp 30 Ml Udc) 30 ml PO DAILY PRN PRN Reason: Constipation Stop: 02/16/22 08:11 Olanzapine (Olanzapine 2.5 Mg Tab) 2.5 mg PO DAILY PRN PRN Reason: psychosis Stop: 02/17/22 08:59 Last Admin: 01/21/22 12:18 Dose: 2.5 mg Documented by: Olanzapine (Olanzapine 2.5 Mg Tab) 2.5 mg PO HS JALEN Stop: 02/23/22 21:59 Propranolol HCl (Propranolol Hcl 60 Mg [place]) 60 mg PO DAILY JALEN Stop: 02/17/22 08:59 Last Admin: 01/24/22 08:52 Dose: 60 mg Documented by: Sertraline HCl (Sertraline Hcl 50 Mg Tablet) 150 mg PO DAILY JALEN Stop: 02/19/22 08:59 Last Admin: 01/24/22 08:53 Dose: 150 mg Documented by: Sodium Chloride (Sodium Chloride 0.65% Na Soln 45 Ml ([place])) 1 - 2 sprays NA PRN PRN PRN Reason: Nasal Dryness/Congestion Stop: 02/16/22 08:11 Mental Health & Subst Abuse Tx Therapist Name of Therapist: Ellie Sorensen Date of Therapist Appointment: 01/18/22
[2022-01-24] MEDS ORDERED: OLANZAPINE 2.5 MG TAB PO SCH (22:00)
[2022-01-25] MEDS: FEXOFENADINE HCL 180 MG TAB PO SCH (08:40)
[2022-01-25] MEDS: PROPRANOLOL HCL 60 MG LA CAP PO SCH (08:40)
[2022-01-25] MEDS: buPROPion XL 150 MG TABCR PO SCH (08:40)
[2022-01-25] MEDS: SERTRALINE HCL 50 MG TABLET PO SCH (08:41)
--- NOTE | 2022-01-25 14:19 | Discharge Summary ---
Date of Service January 25, 2022 History of Present Illness As per Dr. Galindo on admission: Yogesh presents for psychiatric admission for worsening depression, anxiety and intensifying SI with thoughts of potentially overdosing on fentanyl, cutting his throat with a knife or restricting oral intake in the context of multiple recent stressors including the of his father in September 2020 and recent moves from [place] to [place] back to [place]. He's been utilizing crisis services over the last 3 days and felt more acutely suicidal after an argument with his [id number] resulting in him having to return to his own apartment and fears of being able to remain safe on his own. He identifies multiple symptoms of depression including worthlessness, low self-esteem, poor sleep (~4 hours per night), decreased appetite and SI with thoughts of being a burden to his family and wanting to "waste away". Has been experiencing more chronic SI over the last few months which "comes in waves". Anxiety has also increased significantly with fears about something bad happening to his family, decreased sleep, hy pervigilance, racing heart, tremors, and ruminative worries. He notes it's been really stressful to live on his own due to worries about not following the lease which he attributes to his medical marijuana and ensuring he purifies the air enough. When asked about psychotic symptoms has significant difficulty responding with closing his eyes, breathing deeply then responds "the paranoia is there". States he bought wax in [place] and worries about getting legal charges from that because he bough 12g. Worries about his mother getting in trouble for his purchase of marijuana. Notes he's also concerned he'll lose his lease at his apartment due to having marijuana paraphernalia so he threw it all out yesterday. He is currently prescribed Wellbutrin XL 300mg and sertraline 100mg qd. He feels Wellbutrin is maybe helping with his energy. He's unsure if the sertraline has been helping. Psychiatric ROS notable for denial of mk, marijuana use, increased anger/irritability recently, no history of violence/aggression. Physical Exam Psychiatric See admission H&P and DOD assessment. Vital Signs (Past 24 Hours) Last Vital Signs Temp 36.3 C L 01/25/22 11:28 Pulse 71 01/25/22 11:28 Resp 18 01/25/22 11:28 BP 102/64 03/28/22 11:28 Pulse Ox 99 01/25/22 11:28 Principal Diagnosis substance induced psychotic disorder Psychiatric Data See daily stay summary. In short, safety was maintained and the patient was cooperative with care. Medication changes included a decrease in Wellbutrin (given dopaminergic properties) and addition of Zyprexa up to 5 mg but sedation and dizziness limited dosing and patient preferred lower dose as symptoms improved. He is unwilling to give up CBD products but understands recommendations and will avoid THC. He plans to ask his outpatient provider re: Zyprexa taper DARRELL and I encouraged him to follow the recommended course of treatment. He is aware that Zyprexa requires monitoring for TD/metabolic issues. A family session was held with his sister and her partner and safety plan was completed prior to discharge. Day of Discharge Assessment Today the patient voices readiness for discharge. They note improvement in mood and deny thoughts to harm self or others. Thoughts remain organized and they are improved from admission. There is no evidence of psychosis. They agree to take mediations as prescribed and keep follow-up appointments. They are stable for discharge to outpatient level of care. Transition of Care Transition Of Care Record: was reviewed with the patient Advance Directives Advance Directives Information Provided: Yes Advance Directives: No Mental Health Advance Directive: No Advance Directives on File: No Living Will: No Power of Barrel Raiser Helper: No Advance Directives Reason:: Declines as Mental Health Visit. Risk Factors Assessment Male: Yes : Yes Do You Have Access To A Gun?: No Health Problems: No Mental Health Diagnoses: Yes Substance Use Disorders: No Previous Attempt: No Family History of Suicide: No Previous Psychiatric Hospitalization: Yes Hopelessness: Yes Smoker: No Protective Factors Assessment Employed: No Stable Relationships: Yes Supportive Family: Yes Good Rapport with Provider: Yes Tobacco Cessation at Discharge Tobacco Cessation Medication Prescribed at Discharge: Not Applicable/Non-Smoker Total Time Total Time Spent: Greater Than 30 Minutes Total Time Includes: Examination of the patient, Discharge Planning and Medication Reconciliation Discharge Data Lab Results 01/17/22 01/17/22 01/17/22 00:20 00:20 00:20 WBC RBC Hgb Hct MCV MCH MCHC RDW Std Deviation RDW Coeff of Amada Plt Count MPV Immature Gran % (Auto) Neut % (Auto) Lymph % (Auto) Ray % (Auto) Eos % (Auto) Baso % (Auto) Neut # (Auto) Lymph # (Auto) Ray # (Auto) Eos # (Auto) Baso # (Auto) Immature Gran # (Auto) Sodium Potassium Chloride Carbon Dioxide Anion Gap BUN Creatinine Est Cr Clr Drug Dosing Est GFR ( Amer) Est GFR (Non-Af Amer) BUN/Creatinine Ratio Glucose Fasting Glucose Calcium Total Bilirubin AST ALT Alkaline Phosphatase Total Protein Albumin Globulin Albumin/Globulin Ratio Triglycerides Cholesterol LDL Cholesterol, Calc VLDL Cholesterol, Calc HDL Cholesterol Cholesterol/HDL Ratio TSH Urine Color Urine Appearance Urine pH Ur Specific Kin[place] Urine Protein Urine Glucose (UA) Urine Ketones Urine Blood Urine Nitrite Urine Bilirubin Urine Urobilinogen Ur Leukocyte Esterase Salicylates Urine Opiates Screen Neg Ur Methadone, Qual Neg Acetaminophen Urine Barbiturates Neg Ur Phencyclidine (PCP) Neg U Amphetamin/Meth Scrn Neg Urine MDEA negative MDMA (Ecstasy) Screen Pos H MDMA negative Urine MDMA negative U Benzodiazepines Scrn Neg Ur Cocaine Metabolite Neg U Marijuana (THC) Screen Pos H U Marijuana THC Carboxy 222 H Drug Screen Comment SEE NOTE Ethyl Alcohol mg/dL SARS-CoV-2, RNA, NAAT NEGATIVE 01/17/22 01/17/22 01/17/22 00:33 00:33 00:33 WBC 6.54 RBC 5.11 Hgb 16.2 Hct 45.0 MCV 88.1 MCH 31.7 MCHC 36.0 RDW Std Deviation 37.2 RDW Coeff of Amada 11.5 Plt Count 205 MPV 9.3 Immature Gran % (Auto) 0.2 Neut % (Auto) 58.0 Lymph % (Auto) 29.4 Ray % (Auto) 9.6 Eos % (Auto) 2.6 Baso % (Auto) 0.2 Neut # (Auto) 3.80 Lymph # (Auto) 1.92 Ray # (Auto) 0.63 H Eos # (Auto) 0.17 Baso # (Auto) 0.01 Immature Gran # (Auto) 0.01 Sodium 133 L Potassium 3.6 Chloride 102 Carbon Dioxide 21 Anion Gap 10 BUN 14 Creatinine 1.05 Est Cr Clr Drug Dosing 130.5 Est GFR ( Amer) 117.9 Est GFR (Non-Af Amer) 101.7 BUN/Creatinine Ratio 13.3 Glucose 79 Fasting Glucose Calcium 9.3 Total Bilirubin 0.8 AST 14 ALT 11 Alkaline Phosphatase 69 Total Protein 7.2 Albumin 4.4 Globulin 2.8 Albumin/Globulin Ratio 1.6 Triglycerides Cholesterol LDL Cholesterol, Calc VLDL Cholesterol, Calc HDL Cholesterol Cholesterol/HDL Ratio TSH 3.195 Urine Color Urine Appearance Urine pH Ur Specific [place] Urine Protein Urine Glucose (UA) Urine Ketones Urine Blood Urine Nitrite Urine Bilirubin Urine Urobilinogen Ur Leukocyte Esterase Salicylates Urine Opiates Screen Ur Methadone, Qual Acetaminophen Urine Barbiturates Ur Phencyclidine (PCP) U Amphetamin/Meth Scrn Urine MDEA MDMA (Ecstasy) Screen MDMA Urine MDMA U Benzodiazepines Scrn Ur Cocaine Metabolite U Marijuana (THC) Screen U Marijuana THC Carboxy Drug Screen Comment Ethyl Alcohol mg/dL SARS-CoV-2, RNA, NAAT 01/17/22 01/17/22 01/17/22 00:33 00:33 02:25 WBC RBC Hgb Hct MCV MCH MCHC RDW Std Deviation RDW Coeff of Amada Plt Count MPV Immature Gran % (Auto) Neut % (Auto) Lymph % (Auto) Ray % (Auto) Eos % (Auto) Baso % (Auto) Neut # (Auto) Lymph # (Auto) Ray # (Auto) Eos # (Auto) Baso # (Auto) Immature Gran # (Auto) Sodium Potassium Chloride Carbon Dioxide Anion Gap BUN Creatinine Est Cr Clr Drug Dosing Est GFR ( Amer) Est GFR (Non-Af Amer) BUN/Creatinine Ratio Glucose Fasting Glucose Calcium Total Bilirubin AST ALT Alkaline Phosphatase Total Protein Albumin Globulin Albumin/Globulin Ratio Triglycerides Cholesterol LDL Cholesterol, Calc VLDL Cholesterol, Calc HDL Cholesterol Cholesterol/HDL Ratio TSH Urine Color Yellow Urine Appearance Clear Urine pH 5.5 Ur Specific [place] 1.004 Urine Protein Negative Urine Glucose (UA) Negative Urine Ketones 1+ H Urine Blood Negative Urine Nitrite Negative Urine Bilirubin Negative Urine Urobilinogen Negative Ur Leukocyte Esterase Negative Salicylates < 3.0 L Urine Opiates Screen Ur Methadone, Qual Acetaminophen < 3 L Urine Barbiturates Ur Phencyclidine (PCP) U Amphetamin/Meth Scrn Urine MDEA MDMA (Ecstasy) Screen MDMA Urine MDMA U Benzodiazepines Scrn Ur Cocaine Metabolite U Marijuana (THC) Screen U Marijuana THC Carboxy Drug Screen Comment Ethyl Alcohol mg/dL < 10.0 SARS-CoV-2, RNA, NAAT 01/18/22 07:53 WBC RBC Hgb Hct MCV MCH MCHC RDW Std Deviation RDW Coeff of Amada Plt Count MPV Immature Gran % (Auto) Neut % (Auto) Lymph % (Auto) Ray % (Auto) Eos % (Auto) Baso % (Auto) Neut # (Auto) Lymph # (Auto) Ray # (Auto) Eos # (Auto) Baso # (Auto) Immature Gran # (Auto) Sodium Potassium Chloride Carbon Dioxide Anion Gap BUN Creatinine Est Cr Clr Drug Dosing Est GFR ( Amer) Est GFR (Non-Af Amer) BUN/Creatinine Ratio Glucose Fasting Glucose 81 Calcium Total Bilirubin AST ALT Alkaline Phosphatase Total Protein Albumin Globulin Albumin/Globulin Ratio Triglycerides 73 Cholesterol 138 LDL Cholesterol, Calc 88 VLDL Cholesterol, Calc 15 HDL Cholesterol 35 Cholesterol/HDL Ratio 3.9 TSH Urine Color Urine Appearance Urine pH Ur Specific [place] Urine Protein Urine Glucose (UA) Urine Ketones Urine Blood Urine Nitrite Urine Bilirubin Urine Urobilinogen Ur Leukocyte Esterase Salicylates Urine Opiates Screen Ur Methadone, Qual Acetaminophen Urine Barbiturates Ur Phencyclidine (PCP) U Amphetamin/Meth Scrn Urine MDEA MDMA (Ecstasy) Screen MDMA Urine MDMA U Benzodiazepines Scrn Ur Cocaine Metabolite U Marijuana (THC) Screen U Marijuana THC Carboxy Drug Screen Comment Ethyl Alcohol mg/dL SARS-CoV-2, RNA, NAAT Hospital Course (1) 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 Family meeting today. Safety planning. 01/23/22: clearer now that substance induced component given level of reported use by brother, patient admits to heavy use and believes he can "just stop if I want to." The patient's use prior to admission was "all consuming" Brief intervention was offered and accepted. Intervention was greater than 5 min in length and included assessing readiness to quit, advice on how to reduce or abstain, and to set a specific goal for this hospitalization. sail lay out worker will also assist in anticipating barriers to sobriety and in problem-solving for solutions to those problems while arranging for referral to appropriate treatment. He is in precontemplation stage but willing for [facility] referral. 01/22/22: Continue with medications, ongoing motivational interviewing regarding marijuana use. 01/21/22: Continue with sertraline and zyprexa. Decreasing Wellbutrin to 150mg qd due to dopaminergic activity potentially contributing to psychosis. 01/20/22: Continue sertraline, will increase to zyprexa 5mg qhs, continue Wellbutrin. 01/19/22: Increase sertraline to 150mg qd, continue zyprexa 2.5 mg qhs, continue Wellbutrin XL 300mg. 01/18/22: Discontinue qAM dose of zyprexa due to excessive daytime fatigue, continue with 2.5 mg qhs and sertraline and Wellbutrin. 01/17/22: The patient was admitted to the [facility] ([facility] mental health unit) on q15 min checks (behavioral with suicide precautions) for safety. The patient will participate in group, recreational, and milieu therapies and will be offered additional individual and family sessions as clinically appropriate. -fasting lipids and glucose labs in the morning -zyprexa 2.5 mg BID for sleep and paranoia and anxiety -sertraline to 100mg qd -Continue with Wellbutrin XL 300mg qd and prior to admission propranolol for essential tremor Mental Health & Subst Abuse Tx Psychiatrist Name of Psychiatrist: Efraín Green (Intake) Psychiatrist's Date of Appointment with Psychiatrist: 01/28/22 Time of Appointment with Psychiatrist: 8:30 AM Psychiatric Appointment Comment: [address], [address], [place] [address] Psychiatrist Release of Information: Obtained, Reviewed and Signed Therapist Name of Therapist: Efraín Green (Intake) Therapist's Date of Therapist Appointment: 01/28/22 Time of Therapist Appointment: 8:30 AM Therapy Appointment Comment: [address], [address], [place] [address] Therapist Release of Information: Obtained, Reviewed and Signed Nutrition Worker Name of Nutrition Worker: [employer] Phone Number for Nutrition Worker: [phone] Case Management Appointment Comment: They will call you to provide child welfare caseworker Nutrition Worker Release of Information: Obtained, Reviewed and Signed Post Discharge Appointments Smoking Cessation Counseling Tobacco Cessation Medication Prescribed at Discharge: Not Applicable/Non-Smoker Discharge Plan Discharge Items Patient Disposition: Home - Self-Care Reason For Visit: MDD Discharge Diagnosis: substance induced psychotic disorder Activity: Resume your previous activity Non-emergency contact: Primary Care Provider, Psychiatrist and Therapist Call non-emergency contact if: you have any medication questions and your symptoms worsen Follow-up/Referrals: PCP,NO [Primary Care Provider] - Diet: Regular Addtl Attending Provider Instructions: SPECIAL CARE INSTRUCTIONS: 1. Follow through with your scheduled aftercare appointments. If unable to keep an appointment, please call to reschedule. 2. Take your medication only as prescribed. Medication should not be changed or stopped without the approval of your doctor. In the event of worsening symptoms or concerns about side effects, contact your doctor immediately. 3. Utilize new healthy coping skills, anger management skills, and stress management skills learned during your hospitalization. Journal feelings and process them with a support person. Identify stressors or situations that may result in relapse, deterioration or inappropriate behaviors and develop a plan to deal with those issues. 4. If your coping skills are ineffective and you are in crisis, contact your outpatient providers for direction. If unable to reach your providers, please call the [facility] CRISIS LINE AT , go to the [facility] walk-in center at [address] [place] [address] [facility], or go to the closest Emergency Room. 5. Avoid alcohol and un-prescribed drugs. 6. You have been provided with the Mental Health Advance Directives Pamphlet for your review. 7. Your condition is stable for discharge to outpatient level of care, but recovery is an ongoing process. Ifthoughts to harm yourself or others return, follow the safety plan developed during your stay. Planning for a safe return home includes securing weapons. Our treatment team recommends weaponsbe removed from the home until your outpatient provider reassesses your progress. In rare cases where the items themselvescannot be removed, guns and ammunitionshould be secured separatelyand keys stored by a reliable personoutside of the home. If you were admitted on an involuntary commitment, the police or other legal authorities may be involved in this process. AFTERCARE APPOINTMENTS: * Please call your insurance company prior to your scheduled appointment to confirm your aftercare providers are covered. Take your insurance information to your appointments. WHO TO CALL AND WHEN: Medical Emergencies: For questions or emergencies related to your hospital stay, please contact the Inpatient Behavioral Health Unit at [phone]. A tile mason is on-call 23/05 for the Behavioral Health Unit for emergencies At any time you feel your situation is an emergency, you may also call 911 immediately. Pending Studies at Discharge: No Stand-Alone Forms: [facility], Smoking Cessation Medications and DC Order Prescriptions: New bupropion HCl 150 mg Tablet Extended Release 24 Hr 150 mg PO QAM 30 Days Qty: 30 RF: 0 sertraline [Zoloft] 50 mg tablet 50 mg PO DAILY Qty: 30 RF: 0 olanzapine 2.5 mg Tablet 2.5 mg PO HS 30 Days Qty: 30 RF: 0 Continued sertraline [Zoloft] 100 mg Tablet 100 mg PO DAILY 30 Days Qty: 30 RF: 0 fexofenadine 180 mg Tablet 180 mg PO DAILY Qty: 0 RF: 0 propranolol 60 mg Capsule,Extended Release 24 Hr 60 mg PO DAILY 30 Days Qty: 30 RF: 0 Discontinued bupropion HCl [Wellbutrin XL] 300 mg Tablet Extended Release 24 Hr 300 mg PO QAM RF: 0 Discharge Orders: Discharge Order (Routine); Ordered 01/25/22 Ordered By: Gaby Leal Admission Data Admit Date/Time: 01/17/22 07:47 Attending Provider: Gaby Leal Admit Provider: Melisa Galindo Primary Care Provider: PCP,NO Other Interventions: Discharge Summary Assessment (RN) Last Done: 01/25/22 11:28 PSY Interdisciplinary Discharge Planning Last Done: 01/25/22 11:56 Coding Level of Care Code 55556 D/C day mgmt > 30 min Diagnoses 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
== END 2022-01-25 12:32 | disposition home or self-care (01) | DRG 885 ==
LOC: ED 23:44 → 3S 01-17 07:37 → SUATTDRO 01-17 07:47 → 3S 01-17 07:47

== ENCOUNTER 2022-02-01 16:04 | Inpatient (IN) ==
[2022-02-01] MEDS ORDERED: hydrOXYzine HCl 25 MG TAB PO STA (16:34)
--- NOTE | 2022-02-01 16:41 | Emergency Department Note ---
Impression & Plan Depression with suicidal ideation ED Provider Note NAME: VINCENT WALTON AGE: 21 SEX: M : 2000 ARRIVES VIA: Walk-In INFORMANT: Patient, ED PROVIDER(S): Kiet Bender DO CHIEF COMPLAINT: Mental health issues HPI: The patient is a 21-year-old male who presented to the emergency department with his community assigned delegates for mental health evaluation. The patient was recently our facility for similar complaints. He was discharged to his own apartment. He only relocated to this area recently. He does have a history of major depressive disorder. He also has psychotic features and has cannabis abuse in his history. He denies having any chest pain or difficulty breathing. He denies having any fever. He does state that he has had some dysuria. He denies having any urethral discharge. He denies having any rashes. He denies having any swelling. The patient denies having any hematuria or back pain. He denies having any recent trauma. The patient states that he was advised to come to the emergency department by his outpatient caseworkers. They were concerned for safety. The patient states he does have suicidal ideation but has had suicidal ideation daily. He states he has been compliant with his outpatient medications. ROS: See above HPI for pertinent positives & negatives. A total of 10 systems reviewed and were otherwise negative. PAST MEDICAL HISTORY: See Below PAST SURGICAL HISTORY: See Below FAMILY HISTORY: See Below SOCIAL HISTORY: See Below HOME MEDICATIONS: See Below ALLERGIES: See Below VITALS: See Below PHYSICAL EXAMINATION: GENERAL: The patient is awake and alert. He is somewhat anxious appearing but overall comfortable. EYES: The conjunctivae are clear. The pupils are round and reactive. EARS, NOSE, MOUTH AND THROAT: The nose is without any evidence of any deformity. NECK: The neck is nontender and supple. RESPIRATORY: Normal respiratory effort is noted there is no evidence of wheezing rhonchi or rales CARDIOVASCULAR: Regular rate and rhythm noted there no murmurs rubs or gallops normal S1 normal S2. GASTROINTESTINAL: The abdomen is soft. Abdomen is nontender. MUSCULOSKELETAL/EXTREMITIES: There is no evidence of gross deformity full range of motion is noted in the hips and shoulders. SKIN: There is no obvious evidence of any rash. There are no petechiae, pallor or cyanosis noted. NEUROLOGIC: Patient is awake alert and oriented x3 strength is symmetric patellar reflexes are 2+ bilaterally PSYCH: The patient makes good eye contact mostly evaluation. He does admit to having suicidal ideation. He states that he has had many plans in the past including overdosing on medications or cutting his neck. The patient has a very tangential thought process. He does appear to be somewhat guarded. MEDICAL DECISION MAKING: The patient is a 21-year-old male who presented to the emergency department from a 302 evaluation. The patient was recently discharged from our facility because of similar issues. The patient presented with his outpatient care providers. He was having continued suicidal ideation with a plan. The patient was medically cleared in the emergency department. He was evaluated by the mental health senior case manager. He was felt to be a good candidate for inpatient management. At this time bed search is underway. The patient was given his evening dose of olanzapine. Triage Nursing notes reviewed. Prior medical records reviewed Vital Signs: reviewed and remarkable for no significant abnormalities Differential diagnosis: Mood disorder, infection, hypoglycemia, electrolyte abnormalities, cardiac sources, intracerebral event, toxicologic, trauma, neurologic, as well as other pathologies. ER treatment provided: See below Diagnostics interpreted by me: ECG: none Laboratory studies: As stated above and show below. 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 Suicidal ideation Social History Smoking Status: Current every day smoker Preferred Language: Khmer Communication Ability: Effective Client Service Supervisor Required: No Beliefs That Will Affect Care: None Feels Safe at Home: Yes Assistive Devices: None Allergies Allergies Allergy/AdvReac Type Severity Reaction Status Date / Time cat dander Allergy Unverified 01/17/22 04:15 Penicillins Allergy Unverified 01/17/22 04:15 Home Meds Previous Rx's Medication Instructions Recorded bupropion HCl 150 mg 24 hr tablet, 150 mg PO QAM 30 Days #30 tab 01/25/22 extended release fexofenadine 180 mg tablet 180 mg PO DAILY #0 tab 01/25/22 olanzapine 2.5 mg tablet 2.5 mg PO HS 30 Days #30 tab 01/25/22 propranolol 60 mg capsule,24 60 mg PO DAILY 30 Days #30 cap 01/25/22 hr,extended release sertraline 100 mg tablet (Zoloft) 100 mg PO DAILY 30 Days #30 tab 01/25/22 Results & Data (ED) Vital Signs Vital Signs - 24 hr 02/01/22 16:15 Temperature 36.4 C L Temperature Source Oral Pulse Rate 84 Pulse Rhythm Regular Pulse Strength Normal Respiratory Rate 20 Respiratory Effort / Characteristics Non-Labored Spontaneous Respiratory Depth Normal Blood Pressure Position Sitting Pulse Oximetry 97 Oxygen Delivery Method Room Air Sepsis Recent Fever Within 48 Hours No Sepsis New/Unexplained Change in Mental Status No Sepsis Action Taken by Nursing No Action Required Home Medications Current Medication List: was personally reviewed by me Laboratory Data Attestation: I reviewed the patient's lab results. Result diagrams: 02/01/22 16:48 02/01/22 16:48 Lab Results 02/01/22 02/01/22 02/01/22 Range/Units 16:48 16:48 16:48 WBC 7.50 (4.8-10.8) K/uL RBC 4.84 (4.7-6.1) M/uL Hgb 14.7 (14.0-18.0) g/dL Hct 44.0 (42-52) % MCV 90.9 (80-100) fL MCH 30.4 (25-34) pg MCHC 33.4 (32-36) g/dL RDW Std Deviation 40.9 (36.4-46.3) fL RDW Coeff of Amada 12.2 (11.5-14.5) % Plt Count 249 (130-400) K/uL MPV 9.5 (7.4-10.4) fL Immature Gran % (Auto) 0.4 % Neut % (Auto) 45.3 % Lymph % (Auto) 35.9 % Randolph % (Auto) 10.1 % Eos % (Auto) 7.9 % Baso % (Auto) 0.4 % Neut # (Auto) 3.40 (1.4-6.5) K/uL Lymph # (Auto) 2.69 (1.2-3.4) K/uL Randolph # (Auto) 0.76 H (0.11-0.59) K/uL Eos # (Auto) 0.59 H (0-0.5) K/uL Baso # (Auto) 0.03 (0-0.2) K/uL Immature Gran # (Auto) 0.03 H (0.00-0.02) K/uL Sodium 138 (136-145) mmol/L Potassium 3.8 (3.5-5.1) mmol/L Chloride 104 (98-107) mmol/L Carbon Dioxide 28 (21-32) mmol/L Anion Gap 6 (3-11) BUN 10 (6-23) mg/dl Creatinine 0.76 (0.6-1.4) mg/dl Est Cr Clr Drug Dosing 180.3 ml/min Est GFR ( Amer) > 150.0 ml/min Est GFR (Non-Af Amer) 131.3 ml/min BUN/Creatinine Ratio 13.2 (10-20) Glucose 83 (70-99(Fasting)) mg/dl Calcium 9.0 (8.5-10.1) mg/dl Total Bilirubin 0.3 (0.2-1.0) mg/dl AST 15 (13-39) U/L ALT 14 (7-52) U/L Alkaline Phosphatase 66 (34-104) U/L Total Protein 6.8 (6.0-8.3) gm/dl Albumin 4.2 (3.4-5.0) gm/dl Globulin 2.6 (2.5-4.0) gm/dl Albumin/Globulin Ratio 1.6 (0.9-2) TSH 5.092 H (0.300-4.500) uIu/ml Free T4 0.76 (0.61-1.60) ng/dl Urine Color Urine Appearance (Clear) Urine pH (4.5-7.5) Ur Specific [place] (1.000-1.030) Urine Protein (Negative) Urine Glucose (UA) (Negative) Urine Ketones (Negative) Urine Blood (Negative) Urine Nitrite (Negative) Urine Bilirubin (Negative) Urine Urobilinogen (Negative) Ur Leukocyte Esterase (Negative) Salicylates (3.0-30) mg/dl Urine Opiates Screen (Neg) Ur Methadone, Qual (Neg) Acetaminophen (10-30) ug/ml Urine Barbiturates (Neg) Ur Phencyclidine (PCP) (Neg) U Amphetamin/Meth Scrn (Neg) MDMA (Ecstasy) Screen (Neg) U Benzodiazepines Scrn (Neg) Ur Cocaine Metabolite (Neg) U Marijuana (THC) Screen (Neg) Ethyl Alcohol mg/dL (<10.0) mg/dl 02/01/22 02/01/22 02/01/22 Range/Units 16:48 16:48 16:50 WBC (4.8-10.8) K/uL RBC (4.7-6.1) M/uL Hgb (14.0-18.0) g/dL Hct (42-52) % MCV (80-100) fL MCH (25-34) pg MCHC (32-36) g/dL RDW Std Deviation (36.4-46.3) fL RDW Coeff of Amada (11.5-14.5) % Plt Count (130-400) K/uL MPV (7.4-10.4) fL Immature Gran % (Auto) % Neut % (Auto) % Lymph % (Auto) % Randolph % (Auto) % Eos % (Auto) % Baso % (Auto) % Neut # (Auto) (1.4-6.5) K/uL Lymph # (Auto) (1.2-3.4) K/uL Randolph # (Auto) (0.11-0.59) K/uL Eos # (Auto) (0-0.5) K/uL Baso # (Auto) (0-0.2) K/uL Immature Gran # (Auto) (0.00-0.02) K/uL Sodium (136-145) mmol/L Potassium (3.5-5.1) mmol/L Chloride (98-107) mmol/L Carbon Dioxide (21-32) mmol/L Anion Gap (3-11) BUN (6-23) mg/dl Creatinine (0.6-1.4) mg/dl Est Cr Clr Drug Dosing ml/min Est GFR ( Amer) ml/min Est GFR (Non-Af Amer) ml/min BUN/Creatinine Ratio (10-20) Glucose (70-99(Fasting)) mg/dl Calcium (8.5-10.1) mg/dl Total Bilirubin (0.2-1.0) mg/dl AST (13-39) U/L ALT (7-52) U/L Alkaline Phosphatase (34-104) U/L Total Protein (6.0-8.3) gm/dl Albumin (3.4-5.0) gm/dl Globulin (2.5-4.0) gm/dl Albumin/Globulin Ratio (0.9-2) TSH (0.300-4.500) uIu/ml Free T4 (0.61-1.60) ng/dl Urine Color Yellow Urine Appearance Clear (Clear) Urine pH 6.5 (4.5-7.5) Ur Specific [place] 1.004 (1.000-1.030) Urine Protein Negative (Negative) Urine Glucose (UA) Negative (Negative) Urine Ketones Negative (Negative) Urine Blood Negative (Negative) Urine Nitrite Negative (Negative) Urine Bilirubin Negative (Negative) Urine Urobilinogen Negative (Negative) Ur Leukocyte Esterase Negative (Negative) Salicylates < 3.0 L (3.0-30) mg/dl Urine Opiates Screen (Neg) Ur Methadone, Qual (Neg) Acetaminophen < 3 L (10-30) ug/ml Urine Barbiturates (Neg) Ur Phencyclidine (PCP) (Neg) U Amphetamin/Meth Scrn (Neg) MDMA (Ecstasy) Screen (Neg) U Benzodiazepines Scrn (Neg) Ur Cocaine Metabolite (Neg) U Marijuana (THC) Screen (Neg) Ethyl Alcohol mg/dL < 10.0 (<10.0) mg/dl 02/01/22 Range/Units 16:50 WBC (4.8-10.8) K/uL RBC (4.7-6.1) M/uL Hgb (14.0-18.0) g/dL Hct (42-52) % MCV (80-100) fL MCH (25-34) pg MCHC (32-36) g/dL RDW Std Deviation (36.4-46.3) fL RDW Coeff of Amada (11.5-14.5) % Plt Count (130-400) K/uL MPV (7.4-10.4) fL Immature Gran % (Auto) % Neut % (Auto) % Lymph % (Auto) % Randolph % (Auto) % Eos % (Auto) % Baso % (Auto) % Neut # (Auto) (1.4-6.5) K/uL Lymph # (Auto) (1.2-3.4) K/uL Randolph # (Auto) (0.11-0.59) K/uL Eos # (Auto) (0-0.5) K/uL Baso # (Auto) (0-0.2) K/uL Immature Gran # (Auto) (0.00-0.02) K/uL Sodium (136-145) mmol/L Potassium (3.5-5.1) mmol/L Chloride (98-107) mmol/L Carbon Dioxide (21-32) mmol/L Anion Gap (3-11) BUN (6-23) mg/dl Creatinine (0.6-1.4) mg/dl Est Cr Clr Drug Dosing ml/min Est GFR ( Amer) ml/min Est GFR (Non-Af Amer) ml/min BUN/Creatinine Ratio (10-20) Glucose (70-99(Fasting)) mg/dl Calcium (8.5-10.1) mg/dl Total Bilirubin (0.2-1.0) mg/dl AST (13-39) U/L ALT (7-52) U/L Alkaline Phosphatase (34-104) U/L Total Protein (6.0-8.3) gm/dl Albumin (3.4-5.0) gm/dl Globulin (2.5-4.0) gm/dl Albumin/Globulin Ratio (0.9-2) TSH (0.300-4.500) uIu/ml Free T4 (0.61-1.60) ng/dl Urine Color Urine Appearance (Clear) Urine pH (4.5-7.5) Ur Specific [place] (1.000-1.030) Urine Protein (Negative) Urine Glucose (UA) (Negative) Urine Ketones (Negative) Urine Blood (Negative) Urine Nitrite (Negative) Urine Bilirubin (Negative) Urine Urobilinogen (Negative) Ur Leukocyte Esterase (Negative) Salicylates (3.0-30) mg/dl Urine Opiates Screen Neg (Neg) Ur Methadone, Qual Neg (Neg) Acetaminophen (10-30) ug/ml Urine Barbiturates Neg (Neg) Ur Phencyclidine (PCP) Neg (Neg) U Amphetamin/Meth Scrn Neg (Neg) MDMA (Ecstasy) Screen Neg (Neg) U Benzodiazepines Scrn Neg (Neg) Ur Cocaine Metabolite Neg (Neg) U Marijuana (THC) Screen Pos H (Neg) Ethyl Alcohol mg/dL (<10.0) mg/dl Administered Medications Discontinued Medications Hydroxyzine HCl (Hydroxyzine Hcl 25 Mg Tab) 25 mg PO NOW STA Stop: 02/01/22 16:35 Last Admin: 02/01/22 16:48 Dose: 25 mg Documented by: [id number] Olanzapine (Olanzapine 2.5 Mg Tab) 2.5 mg PO ONE ONE Stop: 02/01/22 20:11 Last Admin: 02/01/22 20:31 Dose: 2.5 mg Documented by: [id number] Discharge Plan Visit Data Chief Complaint: Mental Health Evaluation Stated Complaint: SUICIDAL THOUGHTS ED Provider: Kiet Bender Discharge Problem: Depression with suicidal ideation Patient Disposition: Still a Patient Forms Stand Alone Forms: [facility], Suicide Prevention Resources Prescriptions Prescriptions: No Action bupropion HCl 150 mg Tablet Extended Release 24 Hr 150 mg PO QAM 30 Days Qty: 30 RF: 0 olanzapine 2.5 mg Tablet 2.5 mg PO HS 30 Days Qty: 30 RF: 0 sertraline [Zoloft] 100 mg Tablet 100 mg PO DAILY 30 Days Qty: 30 RF: 0 fexofenadine 180 mg Tablet 180 mg PO DAILY Qty: 0 RF: 0 propranolol 60 mg Capsule,Extended Release 24 Hr 60 mg PO DAILY 30 Days Qty: 30 RF: 0 Referrals Referrals: PCP,NO [Physician] -
[2022-02-01 17:07] LABS: Appearance Urine Clear (Clear); Bilirubin Urine Negative (Negative); Blood Urine Negative (Negative); Color Urine Yellow; Glucose Urine UA Negative (Negative); Ketones Urine Negative (Negative); Leukocyte Esterase Urine Negative (Negative); Nitrite Urine Negative (Negative); Protein Urine Negative (Negative); Specific Gravity Urine 1.004 (1.000-1.030); Urobilinogen Urine Negative (Negative); pH Urine 6.5 (4.5-7.5)
[2022-02-01 17:08] LABS: Basophils # (auto) 0.03 K/uL (0-0.2); Basophils % (auto) 0.4 %; Eosinophils # (auto) 0.59 K/uL (0-0.5); Eosinophils % (auto) 7.9 %; Hemoglobin 14.7 g/dL (14.0-18.0); Immature Granulocytes # (auto) 0.03 K/uL (0.00-0.02); Immature Granulocytes % (auto) 0.4 %; Lymphocytes # (auto) 2.69 K/uL (1.2-3.4); Lymphocytes % (auto) 35.9 %; Mean Corpuscular Hemoglobin 30.4 pg (25-34); Mean Corpuscular Hgb Conc 33.4 g/dL (32-36); Mean Corpuscular Volume 90.9 fL (80-100); Mean Platelet Volume 9.5 fL (7.4-10.4); Monocytes # (auto) 0.76 K/uL (0.11-0.59); Monocytes % (auto) 10.1 %; Neutrophils % (auto) 45.3 %; Platelet Count 249 K/uL (130-400); RDW Coefficient of Variation 12.2 % (11.5-14.5); RDW Standard Deviation 40.9 fL (36.4-46.3); Red Blood Count 4.84 M/uL (4.7-6.1)
[2022-02-01 17:34] LABS: Alanine Aminotransferase 14 U/L (7-52); Albumin Globulin Ratio 1.6 (0.9-2); Albumin Level 4.2 gm/dl (3.4-5.0); Alkaline Phosphatase 66 U/L (34-104); Anion Gap 6 (3-11); Aspartate Aminotransferase 15 U/L (13-39); BUN Creatinine Ratio 13.2 (10-20); Bilirubin,Total 0.3 mg/dl (0.2-1.0); Blood Urea Nitrogen 10 mg/dl (6-23); Carbon Dioxide 28 mmol/L (21-32); Chloride 104 mmol/L (98-107); Creatinine Clr Calc Pharmacy 180.3 ml/min; Est GFR (African American) > 150.0 ml/min; Est GFR (Non-African American) 131.3 ml/min; Globulin 2.6 gm/dl (2.5-4.0); Glucose 83 mg/dl (70-99(Fasting)); Potassium 3.8 mmol/L (3.5-5.1); Sodium 138 mmol/L (136-145); Total Protein 6.8 gm/dl (6.0-8.3)
[2022-02-01 17:35] LABS: Acetaminophen < 3 ug/ml (10-30); Salicylate < 3.0 mg/dl (3.0-30)
[2022-02-01 17:51] LABS: Thyroid Stimulating Hormone 5.092 uIu/ml (0.300-4.500)
[2022-02-01 18:02] LABS: Amphetamines+Metham, Urine Neg (Neg); Barbiturates, Urine Neg (Neg); Benzodiazepine, Urine Neg (Neg); Cocaine, Urine Neg (Neg); MDMA (Ecstacy), Urine Neg (Neg); Methadone, Urine Neg (Neg); Opiate, Urine Neg (Neg); Phencyclidine, Urine Neg (Neg)
[2022-02-01 18:34] LABS: T4 Free Thyroxine 0.76 ng/dl (0.61-1.60)
[2022-02-01] MEDS ORDERED: OLANZAPINE 2.5 MG TAB PO ONE (20:10)
[2022-02-01] MEDS ORDERED: ALUMINUM/MAGNESIUM SUSP 30 ML UDC PO PRN (22:31)
[2022-02-01] MEDS ORDERED: ACETAMINOPHEN 325 MG TAB PO PRN (22:31)
[2022-02-01] MEDS ORDERED: hydrOXYzine HCl 25 MG TAB PO PRN ×2 (22:31)
[2022-02-01] MEDS ORDERED: SODIUM CHLORIDE 0.65% NA SOLN 45 ML (OCEAN) PRN (22:31)
[2022-02-01] MEDS ORDERED: BISMUTH SUBSALICYLATE LIQD 236 ML PO PRN (22:31)
[2022-02-01] MEDS ORDERED: MAGNESIUM HYDROXIDE SUSP 30 ML UDC PO PRN (22:31)
[2022-02-02] MEDS ORDERED: SERTRALINE HCL 50 MG TABLET PO SCH (09:00)
[2022-02-02] MEDS: PROPRANOLOL HCL 60 MG LA CAP PO SCH (10:55)
[2022-02-02] MEDS: FEXOFENADINE HCL 180 MG TAB PO SCH (10:55)
[2022-02-02] MEDS: buPROPion XL 150 MG TABCR PO SCH (10:56)
[2022-02-02] MEDS: SERTRALINE HCL 50 MG TABLET PO SCH (11:00)
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
[2022-02-02] MEDS ORDERED: OLANZAPINE 2.5 MG TAB PO SCH (22:00)
--- NOTE | 2022-02-03 08:37 | Psychiatric Progress Note ---
Date of Service February 03, 2022 Impression / Recommendations Impression 21 yo man recently admitted and discharged on 01/25/22 for substance-induced psychosis which improved with abstinence and addition of low dose olanzapine. Resumption of symptoms of depression and mild paranoia in days since with notable use of cannabis over the last few days. Diagnostically consistent with MDD with possible psychotic features vs substance-induced mood and psychotic symptoms vs primary psychotic disorder given significant fam hx and ongoing flat affect with mood symptoms. Also has NEREYDA which remains untreated and results in loud snoring and likely contributing to excessive sleepiness as was seen during previous admission. The patient is deemed unstable and requires psychiatric hospitalization for diagnostic clarification, safety and stabilization, medication management and development of further coping skills. Acute risk is moderate given SI but no intent or plan and decreasing in intensity, able to safety contract and feels safe in the hospital. 02/03/22: Discontinue olanzapine and start risperidone to reduce daytime fatigue. Will need outpatient sleep medicine referral for NEREYDA. 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 ([facility] inpatient mental health unit) on q15 min checks (behavioral with suicide precautions) for safety. The patient will participate in group, recreational, and milieu therapies and will be offered additional individual and family sessions as clinically appropriate. -Continue sertraline 150mg qd, Wellbutrin XL 150mg qd and olanzapine 2.5 mg qhs Inventory Assets Strengths: housing, family in [facility], outpatient services Needs: avoid marijuana use, treatment for NEREYDA, additional coping skills Risk Factors Assessment Male: Yes : Yes Do You Have Access To A Gun?: No Health Problems: Yes (NEREYDA) Mental Health Diagnoses: Yes Substance Use Disorders: Yes Previous Attempt: No Family History of Suicide: No Previous Psychiatric Hospitalization: Yes Hopelessness: Yes Smoker: No Protective Factors Assessment Employed: No Stable Relationships: Yes Supportive Family: Yes Interval History Identifying Information VINCENT WALTON is a 21-year-old man who currently lives in [place] alone, has a history of cannabis-induced psychotic disorder, MDD, anxiety and r/o BPD (from admission to [facility] in Dec 2021) with three prior psychiatric hospitalizations (most recently at [facility], discharged 01/25/22) and was admitted on 02/01/22 22:31 on a 201 voluntary commitment for SI with plan to slit his throat or overdose on medications or alcohol. Chief Complaint "I'm tired". Review of Systems Sleep Information Total Hours of Sleep: 6.75 Meal Information Percent Meal Consumed - Breakfast: 100 Percent Meal Consumed - Lunch: 100 Percent Meal Consumed - Dinner: 100 Subjective Subjective Patient was seen & assessed and interval progress reviewed with treatment team nursing and social work. Vincent was again sleeping overnight and throughout much of the day. He feels his SI is "going down" and he continues to feel safe on the unit with no intent nor plan and able to safety contract that he would alert staff should this change. Discussed option of discontinuing zyprexa in favor of less sedating antipsychotic which he is agreeable to. He consented to starting risperidone. Reviewed side effects including but not limited to of movement (TD) and metabolic. Physical Exam Psychiatric Orientation: alert and oriented x 3 Apperance: appropriately dressed and appropriately groomed Eye Contact: + poor eye contact Motor Behavior: no abnormal motor movements Speech: normal rate/rhythm/volume of speech Affect: + flat affect Mood: + depressed mood and + anxious mood Thought Process: + concrete thought process Thought Content: + paranoid and + persecution Suicidal Thoughts: denies suicidal plan and denies suicidal intent; + reports suicidal thoughts (intermittent passive thoughts ) Homicidal Thoughts: denies homicidal thoughts Hallucinations: no auditory hallucinations and no visual hallucinations Cognition: recent memory grossly intact, remote memory grossly intact and language grossly intact; + attention not intact Estimated Intelligence: consistent with education level Insight: + limited insight Judgement: + limited judgement Vital Signs (Past 24 Hours) Last Vital Signs Temp 36.6 C 02/03/22 06:00 Pulse 76 02/03/22 06:19 Resp 16 02/03/22 06:00 BP 112/74 02/03/22 06:19 Pulse Ox 95 02/02/22 00:38 Results & Data ([facility]) Laboratory Results Laboratory Results - last 24 hr 02/01/22 16:50 U Marijuana THC Carboxy Cancelled Drug Screen Comment Cancelled Current Inpatient Medications Current Inpatient Medications: Current Inpatient Medications Acetaminophen (Acetaminophen 325 Mg Tab) 650 mg PO Q4H PRN PRN Reason: Headache or Minor Fever Stop: 03/03/22 22:30 Al Hydrox/Mg Hydrox/Simethicone (Aluminum/Magnesium Susp 30 Ml Udc) 30 ml PO Q4H PRN PRN Reason: GI Upset Stop: 03/03/22 22:30 Bismuth Subsalicylate (Bismuth Subsalicylate Liqd 236 Ml) 15 ml PO PRN PRN PRN Reason: Loose Stool Stop: 03/03/22 22:30 Bupropion HCl (Bupropion Xl 150 Mg Tabcr) 150 mg PO QAM JALEN Stop: 03/04/22 08:59 Last Admin: 02/02/22 10:56 Dose: 150 mg Documented by: Fexofenadine HCl (Fexofenadine Hcl 180 Mg Tab) 180 mg PO DAILY JALEN Stop: 03/04/22 08:59 Last Admin: 02/02/22 10:55 Dose: 180 mg Documented by: Hydroxyzine HCl (Hydroxyzine Hcl 25 Mg Tab) 50 mg PO HSZ PRN PRN Reason: Insomnia Stop: 03/03/22 22:30 Hydroxyzine HCl (Hydroxyzine Hcl 25 Mg Tab) 25 mg PO Q4H PRN PRN Reason: Anxiety Stop: 03/03/22 22:30 Magnesium Hydroxide (Magnesium Hydroxide Susp 30 Ml Udc) 30 ml PO DAILY PRN PRN Reason: Constipation Stop: 03/03/22 22:30 Olanzapine (Olanzapine 2.5 Mg Tab) 2.5 mg PO HS JALEN Stop: 03/04/22 21:59 Last Admin: 02/02/22 20:54 Dose: 2.5 mg Documented by: Propranolol HCl (Propranolol Hcl 60 Mg [place]) 60 mg PO DAILY JALEN Stop: 03/04/22 08:59 Last Admin: 02/02/22 10:55 Dose: 60 mg Documented by: Sertraline HCl (Sertraline Hcl 50 Mg Tablet) 50 mg PO DAILY JALEN Stop: 03/04/22 10:29 Last Admin: 02/02/22 11:00 Dose: Not Given Documented by: Sodium Chloride (Sodium Chloride 0.65% Na Soln 45 Ml ([place])) 1 - 2 sprays NA PRN PRN PRN Reason: Nasal Dryness/Congestion Stop: 03/03/22 22:30 Mental Health & Subst Abuse Tx Therapist Name of Therapist: Efraín Manager Of Organizational Development Name of Manager Of Organizational Development: Nette Chowdary Post Discharge Appointments Primary Care Physician Name Of Family Doctor: Dr. Mcallister Contact Information Discharge Discharge Address: [address] [place] [address]
[2022-02-03] MEDS: FEXOFENADINE HCL 180 MG TAB PO SCH (09:51)
[2022-02-03] MEDS: PROPRANOLOL HCL 60 MG LA CAP PO SCH (09:52)
[2022-02-03] MEDS: SERTRALINE HCL 50 MG TABLET PO SCH (09:52)
[2022-02-03] MEDS: buPROPion XL 150 MG TABCR PO SCH (09:52)
[2022-02-03] MEDS: risperiDONE 0.5 MG TABLET PO SCH (20:56)
[2022-02-04] MEDS: PROPRANOLOL HCL 60 MG LA CAP PO SCH (08:35)
[2022-02-04] MEDS: FEXOFENADINE HCL 180 MG TAB PO SCH (08:35)
[2022-02-04] MEDS: buPROPion XL 150 MG TABCR PO SCH (08:35)
[2022-02-04] MEDS: SERTRALINE HCL 50 MG TABLET PO SCH (08:40)
--- NOTE | 2022-02-04 08:45 | Psychiatric Progress Note ---
Date of Service February 04, 2022 Impression / Recommendations Impression 21 yo man recently admitted and discharged on 01/25/22 for substance-induced psychosis which improved with abstinence and addition of low dose olanzapine. Resumption of symptoms of depression and mild paranoia in days since with notable use of cannabis over the last few days. Diagnostically consistent with MDD with possible psychotic features vs substance-induced mood and psychotic symptoms vs primary psychotic disorder given significant fam hx and ongoing flat affect with mood symptoms. Also has NEREYDA which remains untreated and results in loud snoring and likely contributing to excessive sleepiness as was seen during previous admission. The patient is deemed unstable and requires psychiatric hospitalization for diagnostic clarification, safety and stabilization, medication management and development of further coping skills. Acute risk is moderate given chronic SI but none today and decreasing in intensity, able to safety contract and feels safe in the hospital. 02/04/22: No further evidence of paranoia, suspect due to marijuana use prior to admission. Still quite fixated on his family at times but seems more related to trauma than paranoia at this point. Will discontinue risperidone given improve ment in psychosis and goal of reducing daytime somnolence and fatigue. NEREYDA also likely contributing to this and to his recent depressed mood. 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 Continue with sertraline and Wellbutrin. Met with outpatient case manager specialist to complete intake process. 02/03/22: Discontinue olanzapine, start risperidone 0.5 mg qhs 02/02/22: The patient was admitted to the [facility] ([facility] mental [facility]) on q15 min checks (behavioral with suicide precautions) for safety. The patient will participate in group, recreational, and milieu therapies and will be offered additional individual and family sessions as clinically appropriate. -Continue sertraline 150mg qd, Wellbutrin XL 150mg qd and olanzapine 2.5 mg qhs Inventory Assets Strengths: housing, family in [facility], outpatient services Needs: avoid marijuana use, treatment for NEREYDA, additional coping skills Risk Factors Assessment Male: Yes : Yes Do You Have Access To A Gun?: No Health Problems: Yes (NEREYDA) Mental Health Diagnoses: Yes Substance Use Disorders: Yes Previous Attempt: No Family History of Suicide: No Previous Psychiatric Hospitalization: Yes Hopelessness: Yes Smoker: No Protective Factors Assessment Employed: No Stable Relationships: Yes Supportive Family: Yes Interval History Identifying Information VINCENT WALTON is a 21-year-old man who currently lives in [place] alone, has a history of cannabis-induced psychotic disorder, MDD, anxiety and r/o BPD (from admission to [facility] in Dec 2021) with three prior psychiatric hospitalizations (most recently at [facility], discharged 01/25/22) and was admitted on 02/01/22 22:31 on a 201 voluntary commitment for SI with plan to slit his throat or overdose on medications or alcohol. Chief Complaint "I'm groggy". Review of Systems Sleep Information Total Hours of Sleep: 6.75 Meal Information Percent Meal Consumed - Breakfast: 100 Percent Meal Consumed - Lunch: 100 Percent Meal Consumed - Dinner: 100 Subjective Subjective Patient was seen & assessed and interval progress reviewed with treatment team nursing and social work. Very negative during the groups but affect and mood improved a bit towards the late evening. Remains focused on family concerns and fixated on relationship with brother. Got prn Vistaril 25mg for anxiety last night. Took risperidone. Today reports improvement in mood and denies SI after meeting with his case manager specialist who came to the unit. he states "I'm doing good and I feel safe" which he attributes to learning about ways his case manager specialist can support him and other community resources such as [employer] that he can parti cipate with for additional support. Remains tired during the day with naps. Reviewed my concern about his marijuana use, he feels this did not contribute to his mood changes but rather "talking about my family" and that he feels his family dynamics are "toxic" citing an uncle who lives with his grandmother and can be verbally mean to her after he drinks alcohol. Physical Exam Psychiatric Orientation: alert and oriented x 3 Apperance: appropriately dressed and appropriately groomed Eye Contact: + fair eye contact Motor Behavior: no abnormal motor movements Speech: normal rate/rhythm/volume of speech Affect: + constricted affect Mood: + depressed mood and + anxious mood Thought Process: goal directed thought process Thought Content: reality based without delusions Suicidal Thoughts: denies suicidal thoughts (intermittent chronic passive thoughts ) Homicidal Thoughts: denies homicidal thoughts Hallucinations: no auditory hallucinations and no visual hallucinations Cognition: recent memory grossly intact, remote memory grossly intact and language grossly intact; + attention not intact Estimated Intelligence: consistent with education level Insight: + limited insight Judgement: + limited judgement Vital Signs (Past 24 Hours) Last Vital Signs Temp 36.5 C 02/04/22 06:00 Pulse 90 02/04/22 06:21 Resp 16 02/04/22 06:00 BP 86/55 L 02/04/22 06:21 Pulse Ox 95 02/02/22 00:38 Results & Data ([facility]) Current Inpatient Medications Current Inpatient Medications: Current Inpatient Medications Acetaminophen (Acetaminophen 325 Mg Tab) 650 mg PO Q4H PRN PRN Reason: Headache or Minor Fever Stop: 03/03/22 22:30 Al Hydrox/Mg Hydrox/Simethicone (Aluminum/Magnesium Susp 30 Ml Udc) 30 ml PO Q4H PRN PRN Reason: GI Upset Stop: 03/03/22 22:30 Bismuth Subsalicylate (Bismuth Subsalicylate Liqd 236 Ml) 15 ml PO PRN PRN PRN Reason: Loose Stool Stop: 03/03/22 22:30 Bupropion HCl (Bupropion Xl 150 Mg Tabcr) 150 mg PO QAM JALEN Stop: 03/04/22 08:59 Last Admin: 02/04/22 08:35 Dose: 150 mg Documented by: Fexofenadine HCl (Fexofenadine Hcl 180 Mg Tab) 180 mg PO DAILY [facility] Stop: 03/04/22 08:59 Last Admin: 02/04/22 08:35 Dose: 180 mg Documented by: Hydroxyzine HCl (Hydroxyzine Hcl 25 Mg Tab) 50 mg PO HSZ PRN PRN Reason: Insomnia Stop: 03/03/22 22:30 Hydroxyzine HCl (Hydroxyzine Hcl 25 Mg Tab) 25 mg PO Q4H PRN PRN Reason: Anxiety Stop: 03/03/22 22:30 Last Admin: 02/03/22 22:02 Dose: 25 mg Documented by: Magnesium Hydroxide (Magnesium Hydroxide Susp 30 Ml Udc) 30 ml PO DAILY PRN PRN Reason: Constipation Stop: 03/03/22 22:30 Propranolol HCl (Propranolol Hcl 60 Mg [place]) 60 mg PO DAILY [facility] Stop: 03/04/22 08:59 Last Admin: 02/04/22 08:35 Dose: 60 mg Documented by: Risperidone (Risperidone 0.5 Mg Tablet) 0.5 mg PO HS JALEN Stop: 03/05/22 21:59 Last Admin: 02/03/22 20:56 Dose: 0.5 mg Documented by: Sertraline HCl (Sertraline Hcl 50 Mg Tablet) 50 mg PO DAILY JALEN Stop: 03/04/22 10:29 Last Admin: 02/04/22 08:40 Dose: 50 mg Documented by: Sodium Chloride (Sodium Chloride 0.65% Na Soln 45 Ml ([place])) 1 - 2 sprays NA PRN PRN PRN Reason: Nasal Dryness/Congestion Stop: 03/03/22 22:30 Mental Health & Subst Abuse Tx Therapist Name of Therapist: Efraín Wait Staff Name of Wait Staff: Nette Chowdary Post Discharge Appointments Primary Care Physician Name Of Family Doctor: Dr. Mcallister Contact Information Discharge Discharge Address: [address] [place] [address], [address]
[2022-02-04] MEDS: risperiDONE 0.5 MG TABLET PO SCH (21:07)
[2022-02-05] MEDS: PROPRANOLOL HCL 60 MG LA CAP PO SCH (08:55)
[2022-02-05] MEDS: buPROPion XL 150 MG TABCR PO SCH (08:55)
[2022-02-05] MEDS: FEXOFENADINE HCL 180 MG TAB PO SCH (08:55)
--- NOTE | 2022-02-05 08:57 | Psychiatric Progress Note ---
Date of Service February 05, 2022 Impression / Recommendations Impression 21 yo man recently admitted and discharged on 01/25/22 for substance-induced psychosis which improved with abstinence and addition of low dose olanzapine. Resumption of symptoms of depression and mild paranoia in days since with notable use of cannabis over the last few days. Diagnostically consistent with MDD with possible psychotic features vs substance-induced mood and psychotic symptoms vs primary psychotic disorder given significant fam hx and ongoing flat affect with mood symptoms. Also has NEREYDA which remains untreated and results in loud snoring and likely contributing to excessive sleepiness as was seen during previous admission. The patient is deemed unstable and requires psychiatric hospitalization for diagnostic clarification, safety and stabilization, medication management and development of further coping skills. Acute risk is moderate given chronic SI but none today and decreasing in intensity, able to safety contract and feels safe in the hospital. 02/04/22: No further evidence of paranoia, suspect due to marijuana use prior to admission. Still quite fixated on his family at times but seems more related to trauma than paranoia at this point. Will discontinue risperidone given improve ment in psychosis and goal of reducing daytime somnolence and fatigue. NEREYDA also likely contributing to this and to his recent depressed mood. 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 Continue with sertraline and Wellbutrin. Met with outpatient case maker to complete intake process. 02/03/22: Discontinue olanzapine, start risperidone 0.5 mg qhs 02/02/22: The patient was admitted to the [facility] ([facility] mental health unit) on q15 min checks (behavioral with suicide precautions) for safety. The patient will participate in group, recreational, and milieu therapies and will be offered additional individual and family sessions as clinically appropriate. -Continue sertraline 150mg qd, Wellbutrin XL 150mg qd and olanzapine 2.5 mg qhs Inventory Assets Strengths: housing, family in [facility], outpatient services Needs: avoid marijuana use, treatment for NEREYDA, additional coping skills Risk Factors Assessment Male: Yes : Yes Do You Have Access To A Gun?: No Health Problems: Yes (NEREYDA) Mental Health Diagnoses: Yes Substance Use Disorders: Yes Previous Attempt: No Family History of Suicide: No Previous Psychiatric Hospitalization: Yes Hopelessness: Yes Smoker: No Protective Factors Assessment Employed: No Stable Relationships: Yes Supportive Family: Yes Interval History Identifying Information VINCENT WALTON is a 21-year-old man who currently lives in [place] alone, has a history of cannabis-induced psychotic disorder, MDD, anxiety and r/o BPD (from admission to [facility] in Dec 2021) with three prior psychiatric hospitalizations (most recently at [facility], discharged 01/25/22) and was admitted on 02/01/22 22:31 on a 201 voluntary commitment for SI with plan to slit his throat or overdose on medications or alcohol. Chief Complaint "[]". Review of Systems Sleep Information Total Hours of Sleep: 8.75 Sleep Comments: recieved Vistaril 50mg at 2109 Meal Information Percent Meal Consumed - Breakfast: 100 Percent Meal Consumed - Lunch: 100 Percent Meal Consumed - Dinner: 100 Subjective Subjective Patient was seen & assessed and interval progress reviewed with treatment team nursing and social work. Low BP this morning with some dizziness, discussed his propranolol []. Physical Exam Psychiatric Orientation: alert and oriented x 3 Apperance: appropriately dressed and appropriately groomed Eye Contact: + fair eye contact and + poor eye contact Motor Behavior: no abnormal motor movements Speech: normal rate/rhythm/volume of speech Affect: + flat affect and + constricted affect Mood: + depressed mood and + anxious mood Thought Process: goal directed thought process, + concrete thought process and + clanging (sparse ) Thought Content: + paranoid, reality based without delusions and + persecution Suicidal Thoughts: denies suicidal thoughts (intermittent chronic passive thoughts ), denies suicidal plan and denies suicidal intent Homicidal Thoughts: denies homicidal thoughts Hallucinations: no auditory hallucinations and no visual hallucinations Cognition: recent memory grossly intact, remote memory grossly intact and language grossly intact; + attention not intact Estimated Intelligence: consistent with education level Insight: + limited insight Judgement: + limited judgement Vital Signs (Past 24 Hours) Last Vital Signs Temp 36.4 C L 02/05/22 06:29 Pulse 90 02/05/22 06:29 Resp 16 02/05/22 06:29 BP 84/53 L 02/05/22 06:29 Pulse Ox 95 02/02/22 00:38 Results & Data [facility]) Current Inpatient Medications Current Inpatient Medications: Current Inpatient Medications Acetaminophen (Acetaminophen 325 Mg Tab) 650 mg PO Q4H PRN PRN Reason: Headache or Minor Fever Stop: 03/03/22 22:30 Al Hydrox/Mg Hydrox/Simethicone (Aluminum/Magnesium Susp 30 Ml Udc) 30 ml PO Q4H PRN PRN Reason: GI Upset Stop: 03/03/22 22:30 Bismuth Subsalicylate (Bismuth Subsalicylate Liqd 236 Ml) 15 ml PO PRN PRN PRN Reason: Loose Stool Stop: 03/03/22 22:30 Bupropion HCl (Bupropion Xl 150 Mg Tabcr) 150 mg PO QAM JALEN Stop: 03/04/22 08:59 Last Admin: 02/04/22 08:35 Dose: 150 mg Documented by: Fexofenadine HCl (Fexofenadine Hcl 180 Mg Tab) 180 mg PO DAILY JALEN Stop: 03/04/22 08:59 Last Admin: 02/04/22 08:35 Dose: 180 mg Documented by: Hydroxyzine HCl (Hydroxyzine Hcl 25 Mg Tab) 50 mg PO HSZ PRN PRN Reason: Insomnia Stop: 03/03/22 22:30 Last Admin: 02/04/22 21:10 Dose: 50 mg Documented by: Hydroxyzine HCl (Hydroxyzine Hcl 25 Mg Tab) 25 mg PO Q4H PRN PRN Reason: Anxiety Stop: 03/03/22 22:30 Last Admin: 02/03/22 22:02 Dose: 25 mg Documented by: Magnesium Hydroxide (Magnesium Hydroxide Susp 30 Ml Udc) 30 ml PO DAILY PRN PRN Reason: Constipation Stop: 03/03/22 22:30 Propranolol HCl (Propranolol Hcl 60 Mg [place]) 60 mg PO DAILY JALEN Stop: 03/04/22 08:59 Last Admin: 02/04/22 08:35 Dose: 60 mg Documented by: Sertraline HCl (Sertraline Hcl 50 Mg Tablet) 150 mg PO DAILY JALEN Stop: 03/07/22 08:59 Sodium Chloride (Sodium Chloride 0.65% Na Soln 45 Ml ([place])) 1 - 2 sprays NA PRN PRN PRN Reason: Nasal Dryness/Congestion Stop: 03/03/22 22:30 Mental Health & Subst Abuse Tx Psychiatrist Name of Psychiatrist: [facility] - referral pending Psychiatrist's Psychiatric Appointment Comment: [address], [address], [place] [address] Therapist Name of Therapist: Efraín Escamilla Therapist's Date of Therapist Appointment: 02/15/22 Time of Therapist Appointment: 9:00 AM Therapy Appointment Comment: [address], [address], [place] [address] [employer] Salesperson Name of [employer] Salesperson: Nette Chowdary Post Discharge Appointments Primary Care Physician Name Of Family Doctor: Musa Garrett Primary [facility] Date of Appointment with PCP: 02/10/22 Time of Appointment with PCP: 4:00 PM Provider Appointment Comment: [place], [place] [address] Contact Information Discharge Discharge Address: [address] [place] [address], [facility], [place], [place]
[2022-02-05] MEDS ORDERED: SERTRALINE HCL 50 MG TABLET PO SCH (09:00)
--- NOTE | 2022-02-05 14:20 | Discharge Summary ---
Date of Service February 05, 2022 History of Present Illness Yogesh is well known to me from his recent admission at [facility] from 01/17/22 through 01/25/22 with discharge diagnosis of substance-induced psychotic disorder and was also treated for depression with SI with multiple plans. Today he presents for psychiatric admission for SI with plan of slitting his throat or overdosing on medications or alcohol. He again reiterates his history of chronic SI noting "it's always in the back of my mind" but that his SI acutely worsened after meeting his new rifle case repairer and discussing his family history "which brought up a lot of bad memories". At that point he no longer felt able to remain safe and was escorted to the ED with his rifle case repairer. In the ED he stated he was not forthcoming about ongoing SI at the time of his discharge last week and that he felt unable to remain safe. Today he continues to endorse low mood with most prominent depressive symptom of fatigue and increased sleep since discharge. States he has been taking his medications since discharge and confirmed with pharmacy via phone that he picked up his most recent scripts after discharge. Has been taking sertraline 150mg qd, Wellbutrin XL 150mg qd and olanzapine 2.5 mg qhs. He met with his new therapist once and feels they should be able to help him reduce his marijuana use which remains a goal. He smoked marijuana containing THC this weekend. States he's unsure if this contributed to his mood worsening but notes "maybe". Also endors es increased paranoia since smoking noting "I'm paranoia but it's unfounded" which he elaborates as remaining concerned about being persecuted for his cannabis use but also notes "it's a luna crime, other people have done much worse". He's unsure if the marijuana use contributed to his worsening paranoia in recent days. Psychiatric ROS negative for symptoms of mk and no other new or recent p sychiatric symptoms since recent discharge last week. Physical Exam Vital Signs (Past 24 Hours) Last Vital Signs Temp 36.4 C L 02/05/22 06:29 Pulse 90 02/05/22 06:29 Resp 16 02/05/22 06:29 BP 84/53 L 02/05/22 06:29 Pulse Ox 95 02/02/22 00:38 See admission H&P and DOD summary. Principal Diagnosis Major Depressive Disorder Psychiatric Data See daily stay summary. In short, patient was engaged with the social/therapeutic milieu of the unit, safety was maintained and the patient was cooperative with care. Medication changes included discontinuation of olanzapine and brief trial of risperidone with ultimate discontinuation of antipsychotics due to improvement in mood and no symptoms of paranoia and concern for side effects of excessive fatigue and they tolerated this well. If symptoms of psychosis develop in the future in the context of cannabis use would recommend brief use of low dose antipsychotic medication such as olanzapine 2.5 mg qhs or risperidone 0.5 mg qhs for 5 days or until symptoms resolve. An intake session was held with his rifle case repairer and safety plan was completed prior to discharge. Reviewed importance of using his CPAP for his NEREYDA to improve his sleep and help maintain stable mood. On presentation to the ED Yogesh had reported "lying" about not feeling suicidal at the time of his last discharge. Discussed and he clarified that he has chronic intermittent SI but that this is passive and without plan or intent. His admission was precipitated by a discussion about his family with his new rifle case repairer which caused an acute change in the intensity of his SI which lead him to have a plan. During hospitalization his SI lessened and for the day prior to and day of discharge he consistently and genuinely denied SI. He actively and insightfully participated in safety planning and in discussions about ways to seek support and recognizing warning signs and utilizing coping skills. He attributed the improvement and resolution of his SI to having a good meeting with his rifle case repairer and learning about more resources for support including mobile psych services, peer support and the local crisis center which made him feel like if he developed SI in the future he would have lots of places to turn for support and lots of people to provide frequent check-ins. Reviewed mobile apps that could be used for additional ways to have their safety plan and contacts easily available should thoughts of SI re-emerge in the future. He did not download the cynthia last time but plans to after this discharge. Reviewed importance of seeking emergency care should SI intensify, worsen or should they feel unsafe in the future which they agree to do. On the day of discharge he stated his mood was "I feel safe, I feel good with my added supports" and remained future-oriented including relaxing at his apartment and engaging in aftercare appointments for psychiatry, therapy and referrals for mobile psych and peer support. Reviewed goal of avoiding cannabis, especially anything with THC, which is precontemplative about. Day of Discharge Assessment Today the patient voices readiness for discharge. They note improvement in mood and anxiety. They deny thoughts of harm to self or others. Thoughts are organized and they are clinically improved from admission. There is no evidence of psychosis. They improved in the hospital with support and medication adjustments. They agree to take medications as prescribed and keep follow-up appointments. At the time of the discharge they are deemed to be stable and appropriate for outpatient level of care. They are not deemed to be at imminent risk of harm to self or others. They are aware of emergency and crisis services. Knows to call 911 or go to nearest emergency care center if in a crisis which cannot be handled as an outpatient. Transition of Care Transition Of Care Record: was reviewed with the patient Advance Directives Advance Directives Information Provided: Yes Advance Directives: No Mental Health Advance Directive: No Advance Directives on File: No Living Will: No Power of Floor Plan Adjuster: No Advance Directives Reason:: Declines as Mental Health Visit. Risk Factors Assessment Acute risk is low given improvement in mood and denial of SI, lack of access to lethal means, improvement in sleep, hopefulness, improvement in psychosis. Chronic risk is moderate given psychiatric co-morbid diagnoses, periods of impulsivity, prior psychiatric hospitalizations, poor social support, mood disorder, possible cluster B personality disorder,childhood trauma, substance use, but also with protective factors. Counseled on ways to reduce acute and chronic risk including engaging with outpatient providers, using safety plan if needed, utilizing supports, taking medication, avoiding cannabis use, and using coping skills. Modifiable risk factors of SI and depression were addressed during hospitalization through development of new coping skills, family meeting, safety planning, and medication adjustments. Male: Yes : Yes Do You Have Access To A Gun?: No Health Problems: Yes (NEREYDA) Mental Health Diagnoses: Yes Substance Use Disorders: Yes Previous Attempt: No Family History of Suicide: No Previous Psychiatric Hospitalization: Yes Hopelessness: No Smoker: No Protective Factors Assessment Employed: No Stable Relationships: Yes Supportive Family: Yes Good Rapport with Provider: Yes Discharge Data Lab Results 02/01/22 02/01/22 02/01/22 16:48 16:48 16:48 WBC 7.50 RBC 4.84 Hgb 14.7 Hct 44.0 MCV 90.9 MCH 30.4 MCHC 33.4 RDW Std Deviation 40.9 RDW Coeff of Amada 12.2 Plt Count 249 MPV 9.5 Immature Gran % (Auto) 0.4 Neut % (Auto) 45.3 Lymph % (Auto) 35.9 [place] % (Auto) 10.1 Eos % (Auto) 7.9 Baso % (Auto) 0.4 Neut # (Auto) 3.40 Lymph # (Auto) 2.69 [place] # (Auto) 0.76 H Eos # (Auto) 0.59 H Baso # (Auto) 0.03 Immature Gran # (Auto) 0.03 H Sodium 138 Potassium 3.8 Chloride 104 Carbon Dioxide 28 Anion Gap 6 BUN 10 Creatinine 0.76 Est Cr Clr Drug Dosing 180.3 Est GFR ( Amer) > 150.0 Est GFR (Non-Af Amer) 131.3 BUN/Creatinine Ratio 13.2 Glucose 83 Calcium 9.0 Total Bilirubin 0.3 AST 15 ALT 14 Alkaline Phosphatase 66 Total Protein 6.8 Albumin 4.2 Globulin 2.6 Albumin/Globulin Ratio 1.6 TSH 5.092 H Free T4 0.76 Urine Color Urine Appearance Urine pH Ur Specific [place] Urine Protein Urine Glucose (UA) Urine Ketones Urine Blood Urine Nitrite Urine Bilirubin Urine Urobilinogen Ur Leukocyte Esterase Salicylates Urine Opiates Screen Ur Methadone, Qual Acetaminophen Urine Barbiturates Ur Phencyclidine (PCP) U Amphetamin/Meth Scrn MDMA (Ecstasy) Screen U Benzodiazepines Scrn Ur Cocaine Metabolite U Marijuana (THC) Screen U Marijuana THC Carboxy Drug Screen Comment Ethyl Alcohol mg/dL SARS-CoV-2, RNA, NAAT 02/01/22 02/01/22 02/01/22 16:48 16:48 16:50 WBC RBC Hgb Hct MCV MCH MCHC RDW Std Deviation RDW Coeff of Amada Plt Count MPV Immature Gran % (Auto) Neut % (Auto) Lymph % (Auto) [place] % (Auto) Eos % (Auto) Baso % (Auto) Neut # (Auto) Lymph # (Auto) [place] # (Auto) Eos # (Auto) Baso # (Auto) Immature Gran # (Auto) Sodium Potassium Chloride Carbon Dioxide Anion Gap BUN Creatinine Est Cr Clr Drug Dosing Est GFR ( Amer) Est GFR (Non-Af Amer) BUN/Creatinine Ratio Glucose Calcium Total Bilirubin AST ALT Alkaline Phosphatase Total Protein Albumin Globulin Albumin/Globulin Ratio TSH Free T4 Urine Color Yellow Urine Appearance Clear Urine pH 6.5 Ur Specific [place] 1.004 Urine Protein Negative Urine Glucose (UA) Negative Urine Ketones Negative Urine Blood Negative Urine Nitrite Negative Urine Bilirubin Negative Urine Urobilinogen Negative Ur Leukocyte Esterase Negative Salicylates < 3.0 L Urine Opiates Screen Ur Methadone, Qual Acetaminophen < 3 L Urine Barbiturates Ur Phencyclidine (PCP) U Amphetamin/Meth Scrn MDMA (Ecstasy) Screen U Benzodiazepines Scrn Ur Cocaine Metabolite U Marijuana (THC) Screen U Marijuana THC Carboxy Drug Screen Comment Ethyl Alcohol mg/dL < 10.0 SARS-CoV-2, RNA, NAAT 02/01/22 02/01/22 02/01/22 16:50 16:50 21:28 WBC RBC Hgb Hct MCV MCH MCHC RDW Std Deviation RDW Coeff of Amada Plt Count MPV Immature Gran % (Auto) Neut % (Auto) Lymph % (Auto) [place] % (Auto) Eos % (Auto) Baso % (Auto) Neut # (Auto) Lymph # (Auto) [place] # (Auto) Eos # (Auto) Baso # (Auto) Immature Gran # (Auto) Sodium Potassium Chloride Carbon Dioxide Anion Gap BUN Creatinine Est Cr Clr Drug Dosing Est GFR ( Amer) Est GFR (Non-Af Amer) BUN/Creatinine Ratio Glucose Calcium Total Bilirubin AST ALT Alkaline Phosphatase Total Protein Albumin Globulin Albumin/Globulin Ratio TSH Free T4 Urine Color Urine Appearance Urine pH Ur Specific [place] Urine Protein Urine Glucose (UA) Urine Ketones Urine Blood Urine Nitrite Urine Bilirubin Urine Urobilinogen Ur Leukocyte Esterase Salicylates Urine Opiates Screen Neg Ur Methadone, Qual Neg Acetaminophen Urine Barbiturates Neg Ur Phencyclidine (PCP) Neg U Amphetamin/Meth Scrn Neg MDMA (Ecstasy) Screen Neg U Benzodiazepines Scrn Neg Ur Cocaine Metabolite Neg U Marijuana (THC) Screen Pos H U Marijuana THC Carboxy Cancelled Drug Screen Comment Cancelled Ethyl Alcohol mg/dL SARS-CoV-2, RNA, NAAT NEGATIVE Hospital Course (1) MDD (major depressive disorder), recurrent episode, moderate: (2) 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 Continue with sertraline and Wellbutrin. Met with outpatient rifle case repairer to complete intake process. 02/03/22: Discontinue olanzapine, start risperidone 0.5 mg qhs 02/02/22: The patient was admitted to the [facility] ([facility] mental [facility] unit) on q15 min checks (behavioral with suicide precautions) for safety. The patient will participate in group, recreational, and milieu therapies and will be o ffered additional individual and family sessions as clinically appropriate. -Continue sertraline 150mg qd, Wellbutrin XL 150mg qd and olanzapine 2.5 mg qhs Mental Health & Subst Abuse Tx Psychiatrist Name of Psychiatrist: Efraín Paredes - referral pending Psychiatrist's Psychiatric Appointment Comment: [address], [address], [place] [address] Therapist Name of Therapist: Efraín Escamilla Therapist's Date of Therapist Appointment: 02/15/22 Time of Therapist Appointment: 9:00 AM Therapy Appointment Comment: [address], [address], [place] [address] Operations Plant Attendant Name of Operations Plant Attendant: Eloina Phone Number for Operations Plant Attendant: [phone] Date of Appointment with Operations Plant Attendant: 02/08/22 Time of Appointment with Operations Plant Attendant: 2:00 pm at your residence Post Discharge Appointments Primary Care Physician Name Of Family Doctor: Musa Lee - Dr. Garrett [facility] Date of Appointment with PCP: 02/10/22 Time of Appointment with PCP: 4:00 PM Provider Appointment Comment: [address], [place] [address] Contact Information Discharge Discharge Address: [address] [place] [address], [facility], [place], [place] Discharge Plan Discharge Items Patient Disposition: Home - Self-Care Reason For Visit: SUICIDAL IDEATION, MDD Discharge Diagnosis: Major Depressive Disorder Activity: Resume your previous activity Non-emergency contact: Primary Care Provider, Psychiatrist, Therapist and Tierce Filler Call non-emergency contact if: you have any medication questions and your symptoms worsen Follow-up/Referrals: Miranda Mcallister CRNP [Primary Care Provider] - Diet: Regular Addtl Attending Provider Instructions: Optional Mobile Apps: -Suicide safety Plan -Virtual Hope Box SPECIAL CARE INSTRUCTIONS: 1. Follow through with your scheduled aftercare appointments. If unable to keep an appointment, please call to reschedule. 2. Take your medication only as prescribed. Medication should not be changed or stopped without the approval of your doctor. In the event of worsening symptoms or concerns about side effects, contact your doctor immediately. 3. Utilize new healthy coping skills, anger management skills, and stress management skills learned during your hospitalization. Journal feelings and process them with a support person. Identify stressors or situations that may result in relapse, deterioration or inappropriate behaviors and develop a plan to deal with those issues. 4. If your coping skills are ineffective and you are in crisis, contact your outpatient providers for direction. If unable to reach your providers, please call the [facility] CRISIS LINE AT , go to the [facility] walk-in center at [address] [place] [address] A, [place], or go to the closest Emergency Room. 5. Avoid alcohol and un-prescribed drugs. 6. You have been provided with the Mental Health Advance Directives Pamphlet for your review. 7. Your condition is stable for discharge to outpatient level of care, but recovery is an ongoing process. Ifthoughts to harm yourself or others return, follow the safety plan developed during your stay. Planning for a safe return home includes securing weapons. Our treatment team recommends weaponsbe removed from the home until your outpatient provider reassesses your progress. In rare cases where the items themselvescannot be removed, guns and ammunitionshould be secured separatelyand keys stored by a reliable personoutside of the home. If you were admitted on an involuntary commitment, the police or other legal authorities may be involved in this process. AFTERCARE APPOINTMENTS: * Please call your insurance company prior to your scheduled appointment to confirm your aftercare providers are covered. Take your insurance information to your appointments. WHO TO CALL AND WHEN: Medical Emergencies: For questions or emergencies related to your hospital stay, please contact the Inpatient Behavioral Health Unit at [phone]. A patroller is on-call 23/05 for the Behavioral Health Unit for emergencies At any time you feel your situation is an emergency, you may also call 911 immediately. Pending Studies at Discharge: No Stand-Alone Forms: My [facility] Medications and DC Order Prescriptions: New hydroxyzine HCl 25 mg Tablet 25 mg PO DAILY PRN (Reason: anxiety) 30 Days Qty: 30 RF: 0 Continued bupropion HCl 150 mg Tablet Extended Release 24 Hr 150 mg PO QAM 30 Days Qty: 30 RF: 0 fexofenadine 180 mg Tablet 180 mg PO DAILY Qty: 0 RF: 0 propranolol 60 mg Capsule,Extended Release 24 Hr 60 mg PO DAILY 30 Days Qty: 30 RF: 0 Changed sertraline [Zoloft] 100 mg Tablet 150 mg PO DAILY 30 Days Qty: 30 RF: 0 Discontinued olanzapine 2.5 mg Tablet 2.5 mg PO HS 30 Days Qty: 30 RF: 0 Discharge Orders: Discharge Order (Routine); Ordered 02/05/22 Ordered By: Melisa Demarco/Other Patient Handouts: Journaling for Mental Health, Depression: Tips to Help Yourself, Suicide Warning Signs What To Do, Suicide Recognize Own Warnings, Suicide Warning Signs Recognize Admission Data Admit Date/Time: 02/01/22 22:31 Attending Provider: Melisa Galindo Admit Provider: Melisa Galindo Primary Care Provider: Miranda Mcallister Other Interventions: Discharge Summary Assessment (RN) Last Done: 02/05/22 14:48 PSY Interdisciplinary Discharge Planning Last Done: 02/05/22 14:49 Coding Level of Care Code 17284 D/C day mgmt > 30 min Diagnoses MDD (major depressive disorder), recurrent episode, moderate F33.1 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
== END 2022-02-05 15:10 | disposition home or self-care (01) | DRG 885 ==
LOC: ED 16:04 → 3S 22:31

== ENCOUNTER 2024-01-28 06:24 | Inpatient (IN) ==
[2024-01-28] MEDS: LORazepam 1 MG TAB SL STA (06:48)
--- NOTE | 2024-01-28 06:58 | Emergency Department Note ---
History of Present Illness General Chief complaint: Anxiety Stated complaint: DISTRESS,ANXIETY Time Seen by Provider: 01/28/24 06:31 History of Present Illness Provider complaint: Anxiety suicidal ideation Onset (ago): hour(s) 1 23-year-old male presents emergency department for anxiety and suicidal ideation. Patient states he was playing a video game and smoking marijuana an hour ago when he started developing very bad anxiety because the videogame made him question his restorationist. He states his restorationist is the only thing he has to live for and without it he wants to kill himself. 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 Major depressive disorder, recurrent, severe with psychotic features Essential tremor Essential tremor Suicidal ideation Social History Smoking Status: Current every day smoker Preferred Language: Divehi Communication Ability: Effective Senior Clinical Data Coordinator Required: No Beliefs That Will Affect Care: None Feels Safe at Home: Yes Gender Identity: Male Assistive Devices: None Physical Exam Vital Signs Vital Signs - 24 hr 01/28/24 06:26 01/28/24 08:32 01/28/24 08:32 Temperature 36.6 C Temperature Source Temporal Artery Scan Pulse Rate 99 H Pulse Rate [Left] 74 Respiratory Rate 20 16 Respiratory Effort / Characteristics Non-Labored Spontaneous Respiratory Depth Normal Normal Blood Pressure 154/76 H Blood Pressure [Left Arm] 120/74 Blood Pressure Mean 102 Blood Pressure Mean [Left Arm] 89 Pulse Oximetry 99 95 Oxygen Delivery Method Room Air Room Air Room Air Sepsis Recent Fever Within 48 Hours No Sepsis New/Unexplained Change in Mental Status N/A Sepsis Action Taken by Nursing No Action Required Physical Exam HENT: Exam performed. - Head: Normocephalic and atraumatic. CV: Tachycardic rate, regular rhythm, normal heart sounds and intact distal pulses. There is no peripheral edema. Palpable radial pulses bue. PULM/CHEST: Effort normal and breath sounds normal. No respiratory distress. No stridor. no wheezes. no rales. NEURO: Motor and sensation grossly intact. PSYCH: Patient is hysterically screaming and crying about the videogame that he was playing stating he wants to now kill himself because it is causing him to question his restorationist. Course Course 06: The patient was evaluated in room A5. A complete history and physical exam was performed 1037: Vital signs stable. Patient medically cleared. Patient accepted to 3 S. Administered Medications Discontinued Medications Lorazepam (Lorazepam 1 Mg Tab) 1 mg SL NOW STA Stop: 01/28/24 06:45 Last Admin: 01/28/24 06:48 Dose: 1 mg Documented By: BRIT Medical Decision Making Laboratory Data Attestation: I reviewed the patient's lab results. 01/28/24 06:55 01/28/24 06:55 Lab Results 01/28/24 01/28/24 Range/Units 06:55 08:09 WBC 5.88 (4.8-10.8) K/ul RBC 5.29 (4.70-6.10) M/uL Hgb 16.0 (14.0-18.0) g/dl Hct 45.2 (42.0-52.0) % MCV 85.4 (80.0-100.0) fL MCH 30.2 (25.0-34.0) pg MCHC 35.4 (32.0-36.0) g/dL RDW Std Deviation 35.2 L (36.4-46.3) fL RDW Coeff of Amada 11.4 L (11.5-14.5) % Plt Count 226 (130-400) K/uL MPV 9.6 (9.4-12.4) fL Immature Gran % (Auto) 0.2 % Neut % (Auto) 59.2 % Lymph % (Auto) 28.9 % [place] % (Auto) 10.0 % Eos % (Auto) 1.2 % Baso % (Auto) 0.5 % Neut # (Auto) 3.48 (1.40-6.50) K/uL Lymph # (Auto) 1.70 (1.20-3.40) K/uL [place] # (Auto) 0.59 (0.11-0.59) K/uL Eos # (Auto) 0.07 (0.00-0.50) K/uL Baso # (Auto) 0.03 (0.00-0.20) K/uL Immature Gran # (Auto) 0.01 (0.01-0.20) K/uL Sodium 139 (136-145) mmol/L Potassium 3.9 (3.5-5.1) mmol/L Chloride 105 (98-107) mmol/L Carbon Dioxide 25 (21-32) mmol/L Anion Gap 9 (3-11) BUN 17 (6-23) mg/dl Creatinine 1.04 (0.6-1.4) mg/dl Est Cr Clr Drug Dosing 129.5 ml/min Est GFR ( Amer) 117.6 ml/min Est GFR (Non-Af Amer) 101.4 ml/min BUN/Creatinine Ratio 16.3 (10-20) Glucose 95 (70-99(Fasting)) mg/dl Calcium 9.3 (8.6-10.3) mg/dl Total Bilirubin 0.8 (0.2-1.0) mg/dl AST 20 (13-39) U/L ALT 16 (7-52) U/L Alkaline Phosphatase 51 (34-104) U/L Total Protein 7.5 (6.0-8.3) gm/dl Albumin 4.6 (3.4-5.0) gm/dl Globulin 2.9 (2.5-4.0) gm/dl Albumin/Globulin Ratio 1.6 (0.9-2) TSH 1.354 (0.300-4.500) uIu/ml Urine Color Dark Yellow Urine Appearance Clear (Clear) Urine pH 6.0 (4.5-7.5) Ur Specific [place] 1.026 (1.000-1.030) Urine Protein Trace H (Negative) Urine Glucose (UA) Negative (Negative) Urine Ketones 3+ H (Negative) Urine Blood Negative (Negative) Urine Nitrite Negative (Negative) Urine Bilirubin Negative (Negative) Urine Urobilinogen Negative (Negative) Ur Leukocyte Esterase Negative (Negative) Urine WBC (Auto) 1-5 (0-5) /hpf Urine RBC (Auto) 0-4 (0-4) /hpf U Hyaline Cast (Auto) 1-5 (0-5) /lpf U Epithel Cells (Auto) 5-10 H (0-5) /lpf Urine Bacteria (Auto) Negative (Negative) Salicylates < 3.0 L (3.0-30) mg/dl Urine Opiates Screen Neg (Neg) Ur Methadone, Qual Neg (Neg) Acetaminophen < 3 L (10-30) ug/ml Urine Barbiturates Neg (Neg) Ur Phencyclidine (PCP) Neg (Neg) U Amphetamin/Meth Scrn Neg (Neg) MDMA (Ecstasy) Screen Neg (Neg) U Benzodiazepines Scrn Neg (Neg) Ur Cocaine Metabolite Neg (Neg) U Marijuana (THC) Screen Pos H (Neg) Ethyl Alcohol mg/dL < 10.0 (<10.0) mg/dl SARS-CoV-2, RNA, NAAT NEGATIVE (NEGATIVE) MDM Narrative 0631: The patient was evaluated in room A5. A complete history and physical exam was performed 1037: Vital signs stable. Patient medically cleared. Patient accepted to 3 S. 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
[2024-01-28 07:10] LABS: Basophils # (auto) 0.03 K/uL (0.00-0.20); Basophils % (auto) 0.5 %; Eosinophils # (auto) 0.07 K/uL (0.00-0.50); Eosinophils % (auto) 1.2 %; Hematocrit (blood only) 45.2 % (42.0-52.0); Immature Granulocytes # (auto) 0.01 K/uL (0.01-0.20); Immature Granulocytes % (auto) 0.2 %; Lymphocytes % (auto) 28.9 %; Mean Corpuscular Hemoglobin 30.2 pg (25.0-34.0); Mean Corpuscular Hgb Conc 35.4 g/dL (32.0-36.0); Mean Corpuscular Volume 85.4 fL (80.0-100.0); Mean Platelet Volume 9.6 fL (9.4-12.4); Monocytes # (auto) 0.59 K/uL (0.11-0.59); Neutrophils # (auto) 3.48 K/uL (1.40-6.50); Neutrophils % (auto) 59.2 %; Platelet Count 226 K/uL (130-400); RDW Coefficient of Variation 11.4 % (11.5-14.5); RDW Standard Deviation 35.2 fL (36.4-46.3); Red Blood Count 5.29 M/uL (4.70-6.10); White Blood Count 5.88 K/ul (4.8-10.8)
[2024-01-28 07:34] LABS: Albumin Globulin Ratio 1.6 (0.9-2); Albumin Level 4.6 gm/dl (3.4-5.0); BUN Creatinine Ratio 16.3 (10-20); Bilirubin,Total 0.8 mg/dl (0.2-1.0); Calcium 9.3 mg/dl (8.6-10.3); Creatinine Clr Calc Pharmacy 129.5 ml/min; Est GFR (African American) 117.6 ml/min; Est GFR (Non-African American) 101.4 ml/min; Globulin 2.9 gm/dl (2.5-4.0); Potassium 3.9 mmol/L (3.5-5.1); Total Protein 7.5 gm/dl (6.0-8.3)
[2024-01-28 07:47] LABS: Acetaminophen < 3 ug/ml (10-30); Salicylate < 3.0 mg/dl (3.0-30)
[2024-01-28 07:48] LABS: Thyroid Stimulating Hormone 1.354 uIu/ml (0.300-4.500)
[2024-01-28 08:27] LABS: Appearance Urine Clear (Clear); Bacteria Urine Automated Negative (Negative); Bilirubin Urine Negative (Negative); Blood Urine Negative (Negative); Color Urine Dark Yellow; Glucose Urine UA Negative (Negative); Ketones Urine 3+ (Negative); Leukocyte Esterase Urine Negative (Negative); Nitrite Urine Negative (Negative); Protein Urine Trace (Negative); RBC Urine Automated 0-4 /hpf (0-4); Specific Gravity Urine 1.026 (1.000-1.030); Urobilinogen Urine Negative (Negative)
[2024-01-28 09:00] LABS: Amphetamines+Metham, Urine Neg (Neg); Barbiturates, Urine Neg (Neg); Benzodiazepine, Urine Neg (Neg); Cocaine, Urine Neg (Neg); MDMA (Ecstacy), Urine Neg (Neg); Marijuana, Urine Pos (Neg); Methadone, Urine Neg (Neg); Opiate, Urine Neg (Neg); Phencyclidine, Urine Neg (Neg)
[2024-01-28] MEDS ORDERED: ALUMINUM/MAGNESIUM SUSP 30 ML UDC PO PRN (13:30)
[2024-01-28] MEDS ORDERED: MAGNESIUM HYDROXIDE SUSP 30 ML UDC PO PRN (13:30)
[2024-01-28] MEDS ORDERED: BISMUTH SUBSALICYLATE LIQD 236 ML PO PRN (13:30)
[2024-01-28] MEDS ORDERED: SODIUM CHLORIDE 0.65% NA SOLN 45 ML (OCEAN) PRN (13:30)
[2024-01-28] MEDS ORDERED: ACETAMINOPHEN 325 MG TAB PO PRN (13:30)
--- NOTE | 2024-01-28 15:01 | History & Physical ---
Date of Service January 28, 2024 Impression / Recommendations Impression Patient has a history of multiple psychiatric hospitalizations and a history of heavy cannabis use, we suspect. Unfortunately, he has not been very cooperative with interview today, but hopefully we can get some better information tomorrow. He is willing to be here voluntarily however. 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 Patient was admitted here for safety, further evaluation, and treatment. 2. Our medical people are available to evaluate and treat any medical issues that arise. 3. We will use just as needed medication right now and give him some time for his cannabis levels to drop. Will also be watching for any other symptoms of heavy marijuana use like nausea and vomiting. 4. Once the patient is more awake we will encourage him to take part in our therapeutic milieu, attend groups and activities, maintain good hygiene, and try not to isolate. 5. refractory worker will set up a family meeting before discharge to make sure we have a good safety plan. We also might consider revoking his medical card for cannabis. 6. Disposition is unclear at this point. Today I spent about 50 minutes on the case. This included meeting with the patient, reviewing the chart, discussion with the psychiatric nurse liaison, orders, and documentation. Suicide Risk Level Suicide Risk Level: High-Moderate (q15 min suicide checks) Risk Factors Assessment Do You Have Access To A Gun?: No (will confirm again upon d/c) Protective Factors Assessment Employed: Yes ([employer] - put in his two week notice) Psychiatric History Identifying Data VINCENT WALTON is a 23-year-old M from [place] who presented to the emergency department the morning of January 28, 2024 with suicidal ideation and heavy marijuana use. He was admitted to our unit for safety, further evaluation, and treatment. Chief Complaint "I feel safe here." History of Present Illness I attempted to meet with the patient, but he was asleep and did not want to get up. He did answer a few brief questions, but then went back to sleep. He presented to the emergency department due to concerns of anxiety and suicidal ideation. He said he was playing a video game and smoking marijuana about an hour before he presented to the emergency department when he started developing bad anxiety. He said the videogame made him question his baptist. He then told the emergency room physician that "his baptist is the only thing he has to live for and without it he wants to kill himself." He has a marijuana card and has a history of multiple psychiatric issues including depression and has been in our psychiatric unit in the past. I believe he has had 2 prior psychiatric hospitalizations, December 2021 and January 2022. He was given lorazepam in the emergency department and was pretty sedated when I tried to meet with him today. He awakened enough to tell me that he does not have suicidal thoughts on the unit and feels safe here. He then rolled over and did not want to talk. According the note from these psychiatric nurse liaison, he came here by himself. He said that this videogame "corrupt Jainism." He had played it once before. He feels like he has no support except for God. 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 He also has a diagnosis of sleep apnea but has not used CPAP for over a year. Past Psychiatric History Previous Psych History: He has a history of major depressive disorder and cannabis-induced psychotic disorder. Current Psychiatric Diagnosis: anxious Outpatient Services: Unknown Previous Psych Admissions: I know he has been hospitalized here at least twice in December and January 2022. Do You Have Access To A Gun?: No (will confirm again upon d/c) History of Previous Suicide Attempt: Yes Past Medication Trials: Looking at some of his older notes, he has been on olanzapine and risperidone in the past. It sounds like he has been on sertraline and Wellbutrin as well. Past Head Trauma/Neuro History According to some of his older notes, he has a history of obstructive sleep apnea and essential tremor. The chart does not list any surgery he is ever had. It is unknown if he is ever had a seizure or head trauma. Allergies Allergy/AdvReac Type Severity Reaction Status Date / Time amoxicillin Allergy Unknown Verified 01/28/24 07:20 cat dander Allergy Unknown Unverified 01/28/24 07:20 Penicillins Allergy Unknown Unverified 01/28/24 07:20 Home Medications Medication Instructions Recorded Confirmed Type Medical Marijuana 1 inhaler inhalation DIRECTED 01/28/24 01/28/24 History Family History Family Mental Health History Comment: Mother is "a wackado" Alcohol History Hx of Alcohol Use Over the Past 12 Months: Yes (6 pk of beer/wk) AUDIT Total Score: 3 Smoking Use Have You Smoked or Used Tobacco Products in the Last 30 Days: Yes tobacco type: cigarettes Smoking Status: Current every day smoker Smoking packs per day: 0.2 Substance History Hx of Prescription Med Misuse Over the Past 12 Months: No Hx of Over the Counter Med Misuse Over the Past 12 Months: No Hx of Inhalent Misuse Over the Past 12 Months: No Hx of Organic Substance Use Over the Past 12 Months: Yes (medical tch - last use 2 hours ago) Hx of Illegal Substances/Street Drug Use Over Past 12 Months: No Problems as a Result of Past Substance Use: None Identified Personal History Living Arrangements: Apartment Highest Grade Completed: High School Graduate Marital Status: Single Number Of Children: 0 Beliefs That Will Affect Care: None Hx Legal Problems: No Hx Traumatic Life Events: Yes Additional Comments: Patient lives here in [place]. He is currently unemployed. 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 Physical Exam Psychiatric: Patient was mostly uncooperative. Eye contact was poor. Speech was normal. He was disheveled. He did not answer questions other than saying that he felt safe here and that he was not suicidal here on the unit. Affect was flat. I could not assess his lethality. I could not assess his memory or concentration. I did not see any abnormal movements. I did not evaluate his gait. Insight and judgment are difficult to assess right now, but likely poor. Vital Signs (Past 24 Hours): Last Vital Signs Temp 36.6 C 01/28/24 12:42 Pulse 85 01/28/24 12:42 Resp 18 01/28/24 12:42 BP 138/84 01/28/24 12:42 Pulse Ox 93 01/28/24 12:42 O2 Del Method Room Air 01/28/24 12:42 Exam Statement: A physical exam was performed by Dr. Abdi in the emergency room this morning. At that time, he was "hysterically screaming and crying about the videogame that he was playing stating he wants to now kill himself because it is causing him to question his baptist." Everything else in the physical exam was normal. Results & Data ([facility]) Laboratory Results Laboratory Results - last 24 hr 01/28/24 01/28/24 06:55 08:09 WBC 5.88 RBC 5.29 Hgb 16.0 Hct 45.2 MCV 85.4 MCH 30.2 MCHC 35.4 RDW Std Deviation 35.2 L RDW Coeff of Amada 11.4 L Plt Count 226 MPV 9.6 Immature Gran % (Auto) 0.2 Neut % (Auto) 59.2 Lymph % (Auto) 28.9 [place] % (Auto) 10.0 Eos % (Auto) 1.2 Baso % (Auto) 0.5 Neut # (Auto) 3.48 Lymph # (Auto) 1.70 [place] # (Auto) 0.59 Eos # (Auto) 0.07 Baso # (Auto) 0.03 Immature Gran # (Auto) 0.01 Sodium 139 Potassium 3.9 Chloride 105 Carbon Dioxide 25 Anion Gap 9 BUN 17 Creatinine 1.04 Est Cr Clr Drug Dosing 129.5 Est GFR ( Amer) 117.6 Est GFR (Non-Af Amer) 101.4 BUN/Creatinine Ratio 16.3 Glucose 95 Calcium 9.3 Total Bilirubin 0.8 AST 20 ALT 16 Alkaline Phosphatase 51 Total Protein 7.5 Albumin 4.6 Globulin 2.9 Albumin/Globulin Ratio 1.6 TSH 1.354 Urine Color Dark Yellow Urine Appearance Clear Urine pH 6.0 Ur Specific [place] 1.026 Urine Protein Trace H Urine Glucose (UA) Negative Urine Ketones 3+ H Urine Blood Negative Urine Nitrite Negative Urine Bilirubin Negative Urine Urobilinogen Negative Ur Leukocyte Esterase Negative Urine WBC (Auto) 1-5 Urine RBC (Auto) 0-4 U Hyaline Cast (Auto) 1-5 U Epithel Cells (Auto) 5-10 H Urine Bacteria (Auto) Negative Salicylates < 3.0 L Urine Opiates Screen Neg Ur Methadone, Qual Neg Acetaminophen < 3 L Urine Barbiturates Neg Ur Phencyclidine (PCP) Neg U Amphetamin/Meth Scrn Neg MDMA (Ecstasy) Screen Neg U Benzodiazepines Scrn Neg Ur Cocaine Metabolite Neg U Marijuana (THC) Screen Pos H U Marijuana THC Carboxy Pending Drug Screen Comment Pending Ethyl Alcohol mg/dL < 10.0 SARS-CoV-2, RNA, NAAT NEGATIVE Current Inpatient Medications Current Inpatient Medications: Current Inpatient Medications Acetaminophen (Acetaminophen 325 Mg Tab) 650 mg PO Q4H PRN PRN Reason: Headache or Minor Fever Stop: 02/27/24 13:29 Al Hydrox/Mg Hydrox/Simethicone (Aluminum/Magnesium Susp 30 Ml Udc) 30 ml PO Q4H PRN PRN Reason: GI Upset Stop: 02/27/24 13:29 Bismuth Subsalicylate (Bismuth Subsalicylate Liqd 236 Ml) 15 ml PO PRN PRN PRN Reason: Loose Stool Stop: 02/27/24 13:29 Hydroxyzine HCl (Hydroxyzine Hcl 25 Mg Tab) 50 mg PO HSZ PRN PRN Reason: Insomnia Stop: 02/27/24 13:29 Hydroxyzine HCl (Hydroxyzine Hcl 25 Mg Tab) 25 mg PO Q4H PRN PRN Reason: Anxiety Stop: 02/27/24 13:29 Magnesium Hydroxide (Magnesium Hydroxide Susp 30 Ml Udc) 30 ml PO DAILY PRN PRN Reason: Constipation Stop: 02/27/24 13:29 Sodium Chloride (Sodium Chloride 0.65% Na Soln 45 Ml ([place])) 1 - 2 sprays NA PRN PRN PRN Reason: Nasal Dryness/Congestion Stop: 02/27/24 13:29
[2024-01-28] MEDS: hydrOXYzine HCl 25 MG TAB PO PRN (22:15)
[2024-01-29] MEDS: PROPRANOLOL HCL 10 MG TAB PO SCH (10:01)
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
[2024-01-30] MEDS: hydrOXYzine HCl 25 MG TAB PO PRN (00:30)
[2024-01-30 04:02] LABS: Marijuana Quant, GCMS Urine 1399 ng/mL (<5)
--- NOTE | 2024-01-30 13:05 | Psychiatric Progress Note ---
Date of Service January 30, 2024 Impression / Recommendations Impression Patient has a history of multiple psychiatric hospitalizations and a history of heavy cannabis use, we suspect. Today I had a much better conversation with the patient as he was much more awake. He has some vague psychotic symptoms and seems somewhat delusional regarding this videogame, but as we talked, he seemed much more clear and goal-directed and logical. He did come in with suicidal ideation which we will take very seriously. I still think he requires psychiatric hospitalization to sort this out better, especially to determine if this is substance induced, a primary thought disorder, or a mood disorder with psychosis. 01/30/2024: We are continuing to see some improvement. He is delusional thoughts and behaviors seem to be a little bit better and at least are not at the forefront of his mind. I still think he requires hospitalization for safety, but we are making progress. 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 Patient was admitted here for safety, further evaluation, and treatment. 2. Our medical people are available to evaluate and treat any medical issues that arise. 3. We will use just as needed medication right now and give him some time for his cannabis levels to drop. Will also be watching for any other symptoms of heavy marijuana use like nausea and vomiting. 4. Once the patient is more awake we will encourage him to take part in our therapeutic milieu, attend groups and activities, maintain good hygiene, and try not to isolate. 5. wheel worker will set up a family meeting before discharge to make sure we have a good safety plan. We also might consider revoking his medical card for cannabis. 6. Disposition is unclear at this point. 01/29/2024: We will continue with her current level of observation and precautions. I am reassured by his bright affect. We will start propranolol 10 mg twice a day to see if that might help with his tremor. I added some as needed risperidone 0.5 mg every 8 hours as needed for any breakthrough psychosis, agitation, or severe anxiety. He also has some as needed hydroxyzine for milder anxiety and sleep. I encouraged the patient to take part in our therapeutic milieu. We will set up a family meeting, but there is not a lot of support around this young man locally. 01/30/2024: We will continue with our current level of observation and precautions. I am reassured with the progress that he is made, but I want to make sure we have a pattern of improvement before we send him home for safety. We also talked about backing off on how much cannabis he has been using. I encouraged him to keep going to groups and activities to help distract himself. Today I spent about 39 minutes on the case. This included meeting with the patient, reviewing the chart, nursing report, multidisciplinary treatment team meeting, orders, and documentation. Suicide Risk Level Suicide Risk Level: Low (q15 min observation checks) Risk Factors Assessment Do You Have Access To A Gun?: No (will confirm again upon d/c) Protective Factors Assessment Employed: Yes ([employer] - put in his two week notice) Interval History Identifying Information VINCENT WALTON is a 23-year-old M from [place] who presented to the emergency department the morning of January 28, 2024 with suicidal ideation and heavy marijuana use. He was admitted to our unit for safety, further evaluation, and treatment. Chief Complaint "I need to look above, look to God. I need to repair my purpose and will to live." Review of Systems Sleep Information Total Hours of Sleep: 5.75 Sleep Comments: Pt currently awake and in the day room Meal Information Percent Meal Consumed - Breakfast: 100 Percent Meal Consumed - Lunch: 100 Percent Meal Consumed - Dinner: 100 Nutrition Comment: sleeping "I'm not hungry" Subjective Subjective Today I met with the patient, received nursing report, and reviewed his chart. We also had a multidisciplinary treatment team meeting to discuss his care. The patient is in our hospital due to suicidal ideation after he watched a video game that caused him to feel totally disconnected from God. Nurses report that on Tuesday night, January 27, he had become upset" charged the nursing station." Later, he was very apologetic about that. His day yesterday went well. He was much brighter and interactive with peers. He participated well. He received some Vistaril 25 mg for anxiety in the evening and then took 50 mg around 12:30 AM to help him get to sleep. He slept well after that. He still has his essential tremor but it is improved with the propranolol. Last evening, he described his mood as 8 out of 10 and "content." 10 would mean that he it would be the best mood ever. He has been social and interacting with peers appropriately. When I met with the patient today, he told me that he had a pretty good day yesterday. He says he is doing fine here on the unit. He is still thinking about the videogame. We talked about whether or not it would be possible to delete it from his library of video games but he does not think he can. He told me he is going to groups and finding that helpful. He described his mood with me today as "optimistic. He denied suicidal thoughts. He did not use any of the as needed risperidone. Physical Exam Psychiatric Patient was alert and cooperative. Eye contact was good. He was clean but a little bit disheveled. Speech was normal. Mood was described as "optimistic." Thought process was logical and goal-directed. There was no evidence of any hallucinations, but there is still a tinge of the delusional talk of this video game. He denied suicidal or homicidal thoughts today. Memory and concentration were good. No abnormal movements were seen. Gait was normal. Insight and judgment are still somewhat impaired. Vital Signs (Past 24 Hours) Last Vital Signs Temp 36.7 C 01/30/24 06:37 Pulse 78 01/30/24 06:37 Resp 18 01/30/24 06:37 BP 124/70 01/30/24 06:37 Pulse Ox 97 01/29/24 06:56 O2 Del Method Room Air 01/29/24 06:56 Results & Data ([facility]) Laboratory Results Laboratory Results - last 24 hr 01/28/24 08:09 U Marijuana THC Carboxy 1399 H Drug Screen Comment SEE NOTE Current Inpatient Medications Current Inpatient Medications: Current Inpatient Medications Acetaminophen (Acetaminophen 325 Mg Tab) 650 mg PO Q4H PRN PRN Reason: Headache or Minor Fever Stop: 02/27/24 13:29 Al Hydrox/Mg Hydrox/Simethicone (Aluminum/Magnesium Susp 30 Ml Udc) 30 ml PO Q4H PRN PRN Reason: GI Upset Stop: 02/27/24 13:29 Bismuth Subsalicylate (Bismuth Subsalicylate Liqd 236 Ml) 15 ml PO PRN PRN PRN Reason: Loose Stool Stop: 02/27/24 13:29 Hydroxyzine HCl (Hydroxyzine Hcl 25 Mg Tab) 50 mg PO HSZ PRN PRN Reason: Insomnia Stop: 02/27/24 13:29 Last Admin: 01/30/24 00:30 Dose: 50 mg Hydroxyzine HCl (Hydroxyzine Hcl 25 Mg Tab) 25 mg PO Q4H PRN PRN Reason: Anxiety Stop: 02/27/24 13:29 Last Admin: 01/29/24 21:23 Dose: 25 mg Magnesium Hydroxide (Magnesium Hydroxide Susp 30 Ml Udc) 30 ml PO DAILY PRN PRN Reason: Constipation Stop: 02/27/24 13:29 Propranolol HCl (Propranolol Hcl 10 Mg Tab) 10 mg PO BID JALEN Stop: 02/28/24 09:14 Last Admin: 01/30/24 08:26 Dose: 10 mg Risperidone (Risperidone 0.5 Mg Tablet) 0.5 mg PO Q8H PRN PRN Reason: anxiety/agitation/severe anx Stop: 02/28/24 09:10 Sodium Chloride (Sodium Chloride 0.65% Na Soln 45 Ml ([place])) 1 - 2 sprays NA PRN PRN PRN Reason: Nasal Dryness/Congestion Stop: 02/27/24 13:29 Mental Health & Subst Abuse Tx Therapist Name of Therapist: None Skiing Teacher Name of Skiing Teacher: None
[2024-01-30] MEDS: risperiDONE 0.5 MG TABLET PO PRN (17:36)
--- NOTE | 2024-01-31 14:23 | Psychiatric Progress Note ---
Date of Service January 31, 2024 Impression / Recommendations Impression Patient has a history of multiple psychiatric hospitalizations and a history of heavy cannabis use, we suspect. Today I had a much better conversation with the patient as he was much more awake. He has some vague psychotic symptoms and seems somewhat delusional regarding this videogame, but as we talked, he seemed much more clear and goal-directed and logical. He did come in with suicidal ideation which we will take very seriously. I still think he requires psychiatric hospitalization to sort this out better, especially to determine if this is substance induced, a primary thought disorder, or a mood disorder with psychosis. 01/31/2024: It sounds like he had a pretty rough day, but the risperidone seem to help keep his thoughts more organized. I discussed that with him as well. I think there is still a certain level of delusional thinking here and very likely related to his heavy cannabis use. I still think he requires psychiatric hospitalization for safety. 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 Patient was admitted here for safety, further evaluation, and treatment. 2. Our medical people are available to evaluate and treat any medical issues that arise. 3. We will use just as needed medication right now and give him some time for his cannabis levels to drop. Will also be watching for any other symptoms of heavy marijuana use like nausea and vomiting. 4. Once the patient is more awake we will encourage him to take part in our therapeutic milieu, attend groups and activities, maintain good hygiene, and try not to isolate. 5. pharmaceutical worker will set up a family meeting before discharge to make sure we have a good safety plan. We also might consider revoking his medical card for cannabis. 6. Disposition is unclear at this point. 01/29/2024: We will continue with her current level of observation and precautions. I am reassured by his bright affect. We will start propranolol 10 mg twice a day to see if that might help with his tremor. I added some as needed risperidone 0.5 mg every 8 hours as needed for any breakthrough psychosis, agitation, or severe anxiety. He also has some as needed hydroxyzine for milder anxiety and sleep. I encouraged the patient to take part in our therapeutic milieu. We will set up a family meeting, but there is not a lot of support around this young man locally. 01/30/2024: We will continue with our current level of observation and precautions. I am reassured with the progress that he is made, but I want to make sure we have a pattern of improvement before we send him home for safety. We also talked about backing off on how much cannabis he has been using. I encouraged him to keep going to groups and activities to help distract himself. : We will continue with our current level of observation and precautions. I asked him to have a low threshold to take his as needed risperidone if he is having a tough time today. At other times during the day we see him bright and interactive with peers. We also discussed how important it would be for him to back off on his cannabis use. He is interested in maybe switching from THC to CBD. Today I spent about 36 minutes on the case. This included meeting with the patient, reviewing the chart, nursing report, multidisciplinary team meeting, orders, and documentation. Suicide Risk Level Suicide Risk Level: Low (q15 min observation checks) Risk Factors Assessment Do You Have Access To A Gun?: No (will confirm again upon d/c) Protective Factors Assessment Employed: Yes ([employer] - put in his two week notice) Interval History Identifying Information VINCENT STARKEYGERARDO is a 23-year-old M from [place] who presented to the emergency department the morning of January 28, 2024 with suicidal ideation and heavy marijuana use. He was admitted to our unit for safety, further evaluation, and treatment. Chief Complaint "I need to look above, look to God. I need to repair my purpose and will to live." Review of Systems Sleep Information Total Hours of Sleep: 7.25 Sleep Comments: Pt currently awake and in the day room Meal Information Percent Meal Consumed - Breakfast: 100 Percent Meal Consumed - Lunch: 100 Percent Meal Consumed - Dinner: 50 Nutrition Comment: sleeping "I'm not hungry" Subjective Subjective Today I met with the patient, received nursing report, and reviewed his chart. We also had a multidisciplinary team meeting to discuss his care. Vincent is in our hospital due to concerns of possible substance induced psychosis related to his heavy cannabis use. Staff report that he slept 7.25 hours last night. In the evening he had taken some risperidone because he had gotten somewhat agitated and a little bit bizarre and paranoid. This caused him to sleep for a while and then he got up during the night and later took some hydroxyzine. The family meeting took place yesterday with his sister and she confronted him about his cannabis use. Apparently she has told him before that she does not really want to talk with him when he is high. This resulted in the patient crying and eventually getting the risperidone. The social worker palliative care is helping him apply for temporary disability. He also met with the swatch checker yesterday and again this morning. When I met with him today, we reviewed what happened with the risperidone. He was not too thrilled that it made him so tired but he thinks that it possibly helped him. He says he does not really want to take it on a scheduled basis. He was pretty distressed and is meeting with his sister. He did enjoy his time with the swatch checker. Today, he described his mood is "optimistic." He says has been catastrophizing a little bit because of the financial pressure he is now under having to be in the hospital without insurance. He describes suicidal ideation at 2 out of 10 and self-harm urges at 1 out of 10; these are both where 10 is the worst that they could ever be. He was also having a little bit of nausea this morning. He told me that he was able to reschedule his start date for work to February 04. Physical Exam Psychiatric Patient was alert and cooperative. Eye contact was good. He was clean and less disheveled. Speech was normal. Mood was described as "optimistic." Thought process was logical and goal-directed. There was no evidence of any hallucinations, but he seems pretty confucianist today. I do not know if I would call it delusional though. He describes suicidal ideation and self-harm urges as I listed above. He denied homicidal thoughts today. Memory and concentration were good. No abnormal movements were seen. Gait was normal. Insight and judgment are still somewhat impaired. Vital Signs (Past 24 Hours) Last Vital Signs Temp 36.7 C 01/31/24 06:48 Pulse 89 01/31/24 06:49 Resp 16 01/31/24 06:48 BP 103/64 01/31/24 06:49 Pulse Ox 97 01/29/24 06:56 O2 Del Method Room Air 01/29/24 06:56 Results & Data ([facility]) Current Inpatient Medications Current Inpatient Medications: Current Inpatient Medications Acetaminophen (Acetaminophen 325 Mg Tab) 650 mg PO Q4H PRN PRN Reason: Headache or Minor Fever Stop: 02/27/24 13:29 Al Hydrox/Mg Hydrox/Simethicone (Aluminum/Magnesium Susp 30 Ml Udc) 30 ml PO Q4H PRN PRN Reason: GI Upset Stop: 02/27/24 13:29 Bismuth Subsalicylate (Bismuth Subsalicylate Liqd 236 Ml) 15 ml PO PRN PRN PRN Reason: Loose Stool Stop: 02/27/24 13:29 Hydroxyzine HCl (Hydroxyzine Hcl 25 Mg Tab) 50 mg PO HSZ PRN PRN Reason: Insomnia Stop: 02/27/24 13:29 Last Admin: 01/30/24 00:30 Dose: 50 mg Hydroxyzine HCl (Hydroxyzine Hcl 25 Mg Tab) 25 mg PO Q4H PRN PRN Reason: Anxiety Stop: 02/27/24 13:29 Last Admin: 01/31/24 01:56 Dose: 25 mg Magnesium Hydroxide (Magnesium Hydroxide Susp 30 Ml Udc) 30 ml PO DAILY PRN PRN Reason: Constipation Stop: 02/27/24 13:29 Propranolol HCl (Propranolol Hcl 10 Mg Tab) 10 mg PO BID JALEN Stop: 02/28/24 09:14 Last Admin: 01/31/24 08:19 Dose: 10 mg Risperidone (Risperidone 0.5 Mg Tablet) 0.5 mg PO Q8H PRN PRN Reason: anxiety/agitation/severe anx Stop: 02/28/24 09:10 Last Admin: 01/30/24 17:36 Dose: 0.5 mg Sodium Chloride (Sodium Chloride 0.65% Na Soln 45 Ml ([place])) 1 - 2 sprays NA PRN PRN PRN Reason: Nasal Dryness/Congestion Stop: 02/27/24 13:29 Mental Health & Subst Abuse Tx Therapist Name of Therapist: None Fuel Verification Technician Name of Fuel Verification Technician: None
--- NOTE | 2024-02-01 15:59 | Psychiatric Progress Note ---
Date of Service February 01, 2024 Impression / Recommendations Impression 23 yo man with history of trauma, depression, anxiety and cannabis use admitted for worsened mood with lability, SI and questioning his bahai beliefs. Diagnostically unclear but likely a combination of major depression, cannabis- induced mood symptoms and possible psychosis versus ASD versus trauma response versus BPAD type II. 02/01/2024: Ongoing mood lability but able to process cannabis use and motivational interviewing done regarding this, he wants to switch to CBD formulations. Reviewed recent stressors at work and helping to support others. Certainly seems to be significant component from trauma. He does not want to take any scheduled psychiatric medications but will consider using risperidone prn more consistently. Continues to find propranolol helpful. Today I spent about 55 minutes on the case. This included meeting with the patient, reviewing the chart, nursing report, multidisciplinary team meeting, orders, and documentation. 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 Ongoing motivational inte viewing. Interested in CSG. Suicide Risk Level Suicide Risk Level: Moderate (q15 min suicide checks) (SI prior to admission, mood improving but still with lability and periods of thought disorganization but denies SI and feels safe in the hospital and able to go to nurses for support ) Risk Factors Assessment Do You Have Access To A Gun?: No (will confirm again upon d/c) Protective Factors Assessment Employed: Yes ([employer] - put in his two week notice) Interval History Identifying Information VINECNT WALTON is a 23-year-old M from [place] who presented to the emergency department the morning of January 28, 2024 with suicidal ideation and heavy marijuana use. He was admitted to our unit for safety, further evaluation, and treatment. Chief Complaint "I have complex PTSD". Review of Systems Sleep Information Total Hours of Sleep: 6.5 Sleep Comments: Pt currently awake and in the day room Meal Information Percent Meal Consumed - Breakfast: 100 Percent Meal Consumed - Lunch: 100 Percent Meal Consumed - Dinner: 100 Nutrition Comment: sleeping "I'm not hungry" Subjective Subjective Patient was seen & assessed and interval progress reviewed with treatment team nursing and social work. Reports recent stressors at work prior to finding his new position, past trauma, lack of support. Tearful at times. Feels he is getting good support here. Wonders about starting back at [employer]. Physical Exam Psychiatric Orientation: alert and oriented x 3 Apperance: appropriately dressed Eye Contact: + fair eye contact Motor Behavior: no abnormal motor movements Speech: normal rate/rhythm/volume of speech Affect: + depressed affect, + anxious affect, + tearful affect and + labile affect Mood: + depressed mood and + anxious mood Thought Process: + circumstantial thought process Thought Content: reality based without delusions Suicidal Thoughts: denies suicidal thoughts Homicidal Thoughts: denies homicidal thoughts Hallucinations: no auditory hallucinations and no visual hallucinations Insight: + fair insight Judgment: + fair judgement Vital Signs (Past 24 Hours) Last Vital Signs Temp 36.5 C 02/01/24 05:28 Pulse 72 02/01/24 05:29 Resp 16 02/01/24 05:28 BP 135/71 02/01/24 05:29 Pulse Ox 97 02/01/24 05:28 O2 Del Method Room Air 02/01/24 05:28 Results & Data ([facility]) Current Inpatient Medications Current Inpatient Medications: Current Inpatient Medications Acetaminophen (Acetaminophen 325 Mg Tab) 650 mg PO Q4H PRN PRN Reason: Headache or Minor Fever Stop: 02/27/24 13:29 Al Hydrox/Mg Hydrox/Simethicone (Aluminum/Magnesium Susp 30 Ml Udc) 30 ml PO Q4H PRN PRN Reason: GI Upset Stop: 02/27/24 13:29 Bismuth Subsalicylate (Bismuth Subsalicylate Liqd 236 Ml) 15 ml PO PRN PRN PRN Reason: Loose Stool Stop: 02/27/24 13:29 Hydroxyzine HCl (Hydroxyzine Hcl 25 Mg Tab) 50 mg PO HSZ PRN PRN Reason: Insomnia Stop: 02/27/24 13:29 Last Admin: 01/30/24 00:30 Dose: 50 mg Hydroxyzine HCl (Hydroxyzine Hcl 25 Mg Tab) 25 mg PO Q4H PRN PRN Reason: Anxiety Stop: 02/27/24 13:29 Last Admin: 01/31/24 01:56 Dose: 25 mg Magnesium Hydroxide (Magnesium Hydroxide Susp 30 Ml Udc) 30 ml PO DAILY PRN PRN Reason: Constipation Stop: 02/27/24 13:29 Propranolol HCl (Propranolol Hcl 10 Mg Tab) 10 mg PO BID JALEN Stop: 02/28/24 09:14 Last Admin: 02/01/24 08:39 Dose: 10 mg Risperidone (Risperidone 0.5 Mg Tablet) 0.5 mg PO Q8H PRN PRN Reason: anxiety/agitation/severe anx Stop: 02/28/24 09:10 Last Admin: 01/30/24 17:36 Dose: 0.5 mg Sodium Chloride (Sodium Chloride 0.65% Na Soln 45 Ml ([place])) 1 - 2 sprays NA PRN PRN PRN Reason: Nasal Dryness/Congestion Stop: 02/27/24 13:29 Mental Health & Subst Abuse Tx Therapist Name of Therapist: Efraín Pitts Therapist's Date of Therapist Appointment: 02/27/24 Time of Therapist Appointment: arrive by 1:30 PM Therapy Appointment Comment: [address], [address], [place] [address] Chicken Boner Name of Chicken Boner: None
--- NOTE | 2024-02-02 10:02 | Psychiatric Progress Note ---
Date of Service February 02, 2024 Impression / Recommendations Impression 23 yo man with history of trauma, depression, anxiety and cannabis use admitted for worsened mood with lability, SI and questioning his restoration beliefs. Diagnostically seems most consistent with a combination of major depression, cannabis-induced mood symptoms and impact from insomnia. 02/02/2024: Mood is stabilizing without evidence for any significant lability today. 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 He is now looking forward to his new job and feels able to move past his restoration concerns/distress from recent video game.Continues to find propranolol helpful, he doesn't wish to continue with risperidone as a prn. Today I spent about 40 minutes on the case. This included meeting with the patient, reviewing the chart, nursing report, multidisciplinary team meeting, orders, and documentation. 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 CSG referral placed. 02/01/2024: Continue current medications and tx plan. Ongoing motivational interviewing. Interested in CSG. Suicide Risk Level Suicide Risk Level: Low (q15 min observation checks) (SI prior to admission, mood improving and denies SI and feels safe in the hospital and able to go to nurses for support ) Risk Factors Assessment Do You Have Access To A Gun?: No (will confirm again upon d/c) Protective Factors Assessment Employed: Yes ([employer] - put in his two week notice) Interval History Identifying Information VINCENT STARKEYAlecGERARDO is a 23-year-old M from [place] who presented to the emergency department the morning of January 28, 2024 with suicidal ideation and heavy marijuana use. He was admitted to our unit for safety, further evaluation, and treatment. Chief Complaint "better than yesterday". Review of Systems Sleep Information Total Hours of Sleep: 7.45 Sleep Comments: HS Inderal Meal Information Percent Meal Consumed - Breakfast: 100 Percent Meal Consumed - Lunch: 100 Percent Meal Consumed - Dinner: 95 Nutrition Comment: sleeping "I'm not hungry" Subjective Subjective Patient was seen & assessed and interval progress reviewed with treatment team nursing and social work. Took prn Vistaril. Still thinking about the video game but trying to distract himself and feels he can better move past it now. He doesn't feel this was due to any type of hyper-restoration beliefs or psychosis but due to a normal human response to a distressing video game. He notes his friends also found the game disturbing at times so feels everyone will be in support of not playing it again. He is contemplating a therapy schedule that includes attending therapy once a week and participating in a Community Support Group (CSG) once a week. Additionally,he's interested in a new referral to a peer support due to the incompatibility with his previous peer support. He has expressed a desire for discharge tomorrow, currently feeling safe and denying any suicidal ideation today. In terms of sleep quality, he reports an improvement, having slept better last night compared to the previous night. He took a nap around 6 PM and slept until approximately 5:15-5:30 AM. He feels that the propranolol is well-tolerated and expresses a preference to continue its use, while feeling hesitant about taking risperidone, even on an as-needed basis. He identifies a combination of stress, insufficient support, and poor sleep as the main contributors to his depression and admission and feels these are all improving now. He is open to employing distraction techniques to manage ruminati ve thoughts, such as listening to positive music or engaging in physical activity. He is also willing to be more conscientious about his cannabis use and is considering the use of CBD as an alternative. Physical Exam Psychiatric Orientation: alert and oriented x 3 Apperance: appropriately dressed Eye Contact: good eye contact Motor Behavior: no abnormal motor movements Speech: normal rate/rhythm/volume of speech Affect: euthymic affect Mood: + anxious mood Thought Process: + circumstantial thought process Thought Content: reality based without delusions Suicidal Thoughts: denies suicidal thoughts Homicidal Thoughts: denies homicidal thoughts Hallucinations: no auditory hallucinations and no visual hallucinations Insight: + fair insight Judgment: + fair judgement Vital Signs (Past 24 Hours) Last Vital Signs Temp 35.9 C L 02/02/24 06:00 Pulse 64 02/02/24 08:43 Resp 16 02/02/24 06:00 BP 127/77 02/02/24 06:00 Pulse Ox 97 02/01/24 05:28 O2 Del Method Room Air 02/01/24 05:28 Results & Data ([facility]) Current Inpatient Medications Current Inpatient Medications: Current Inpatient Medications Acetaminophen (Acetaminophen 325 Mg Tab) 650 mg PO Q4H PRN PRN Reason: Headache or Minor Fever Stop: 02/27/24 13:29 Al Hydrox/Mg Hydrox/Simethicone (Aluminum/Magnesium Susp 30 Ml Udc) 30 ml PO Q4H PRN PRN Reason: GI Upset Stop: 02/27/24 13:29 Bismuth Subsalicylate (Bismuth Subsalicylate Liqd 236 Ml) 15 ml PO PRN PRN PRN Reason: Loose Stool Stop: 02/27/24 13:29 Hydroxyzine HCl (Hydroxyzine Hcl 25 Mg Tab) 50 mg PO HSZ PRN PRN Reason: Insomnia Stop: 02/27/24 13:29 Last Admin: 01/30/24 00:30 Dose: 50 mg Hydroxyzine HCl (Hydroxyzine Hcl 25 Mg Tab) 25 mg PO Q4H PRN PRN Reason: Anxiety Stop: 02/27/24 13:29 Last Admin: 02/01/24 21:04 Dose: 25 mg Magnesium Hydroxide (Magnesium Hydroxide Susp 30 Ml Udc) 30 ml PO DAILY PRN PRN Reason: Constipation Stop: 02/27/24 13:29 Propranolol HCl (Propranolol Hcl 10 Mg Tab) 10 mg PO BID JALEN Stop: 02/28/24 09:14 Last Admin: 02/02/24 08:38 Dose: 10 mg Risperidone (Risperidone 0.5 Mg Tablet) 0.5 mg PO Q8H PRN PRN Reason: anxiety/agitation/severe anx Stop: 02/28/24 09:10 Last Admin: 01/30/24 17:36 Dose: 0.5 mg Sodium Chloride (Sodium Chloride 0.65% Na Soln 45 Ml ([place])) 1 - 2 sprays NA PRN PRN PRN Reason: Nasal Dryness/Congestion Stop: 02/27/24 13:29 Mental Health & Subst Abuse Tx Therapist Name of Therapist: Efraín Paredes - Faheem Pitts Therapist's Date of Therapist Appointment: 02/27/24 Time of Therapist Appointment: arrive by 1:30 PM Therapy Appointment Comment: [address], [address], [place] [address] Wind Project Manager Name of Wind Project Manager: None
--- NOTE | 2024-02-03 09:29 | Discharge Summary ---
Date of Service February 03, 2024 History of Present Illness I attempted to meet with the patient, but he was asleep and did not want to get up. He did answer a few brief questions, but then went back to sleep. He presented to the emergency department due to concerns of anxiety and suicidal ideation. He said he was playing a video game and smoking marijuana about an hour before he presented to the emergency department when he started developing bad anxiety. He said the videogame made him question his baptist. He then told the emergency room physician that "his baptist is the only thing he has to live for and without it he wants to kill himself." He has a marijuana card and has a history of multiple psychiatric issues including depression and has been in our psychiatric unit in the past. I believe he has had 2 prior psychiatric hospitalizations, December 2021 and January 2022. He was given lorazepam in the emergency department and was pretty sedated when I tried to meet with him today. He awakened enough to tell me that he does not have suicidal thoughts on the unit and feels safe here. He then rolled over and did not want to talk. According the note from these psychiatric nurse liaison, he came here by himself. He said that this videogame "corrupt Lutheran." He had played it once before. He feels like he has no support except for God. 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 He also has a diagnosis of sleep apnea but has not used CPAP for over a year. Physical Exam Vital Signs (Past 24 Hours) Last Vital Signs Temp 36.5 C 02/03/24 06:42 Pulse 66 02/03/24 06:43 Resp 16 02/03/24 06:42 BP 117/71 02/03/24 06:43 Pulse Ox 97 02/01/24 05:28 O2 Del Method Room Air 02/01/24 05:28 See admission H&P and DOD summary. Principal Diagnosis Post Traumatic Stress Disorder Psychiatric Data See daily stay summary. In short, patient was engaged with the social/therapeutic milieu of the unit, safety was maintained and the patient was cooperative with care. Medication changes included starting propranolol for essential tremor and off-label for anxiety and PTSD as well as Vistaril prn for anxiety/insomnia and they tolerated this well. Risperidone was trialed but he did not find this helpful and asked to discontinue this. A support session was held and safety plan was completed prior to discharge. In the days leading up to discharge he consistently denied any SI. He actively and insightfully participated in safety planning and in discussions about ways to seek support and recognizing warning signs and utilizing coping skills. Reviewed mobile apps that could be used for additional ways to have their safety plan and contacts easily available should thoughts of SI re-emerge in the future. Reviewed importance of seeking emergency care should SI intensify, worsen or should they feel unsafe in the future which they agree to do. On the day of discharge he stated his mood was "good" and remained future-oriented including starting his new job, going back to [facility] and engaging in aftercare appointments for therapy. Day of Discharge Assessment Today the patient voices readiness for discharge. They note improvement in mood and anxiety. They deny thoughts of harm to self or others. Thoughts are organized and they are clinically improved from admission. There is no evidence of psychosis. They improved in the hospital with support and medication adjustments. They agree to take medications as prescribed and keep follow-up appointments. At the time of the discharge they are deemed to be stable and appropriate for outpatient level of care. They are not deemed to be at imminent risk of harm to self or others. They are aware of emergency and crisis services. Knows to call 911 or go to nearest emergency care center if in a crisis which cannot be handled as an outpatient. Overall, I spent a total of 40 minutes on this case including meeting with the patient, reviewing the chart, nursing report, multidisciplinary team meeting, orders, and documentation. Transition of Care Transition Of Care Record: was reviewed with the patient Advance Directives Advance Directives Information Provided: Yes Advance Directives: No Mental Health Advance Directive: No Advance Directives on File: No Living Will: No Power of Documentation Writer: No Advance Directives Reason:: Declines as Mental Health Visit. Suicide Risk Level Suicide Risk Level Comments: Acute risk is low given improvement in mood and denial of SI, lack of access to lethal means, plan to reduce substance use, improvement in sleep, hopefulness. Chronic risk is moderate given some non-modifiable risk factors: psychiatric co- morbid diagnoses, periods of impulsivity, prior attempt, emotional reactivity, prior psychiatric hospitalizations, limited social support, childhood trauma but also with protective factors including: employed, sense of responsibility to family and social supports, outpatient care in place, positive coping skills, positive problem solving, capacity to establish therapeutic alliance, willingness to engage with treatment and capacity for self-observation. Counseled on ways to reduce acute and chronic risk including engaging with outpatient providers, using safety plan if needed, utilizing supports, taking medication, and using coping skills. Modifiable risk factors of SI, anxiety and depression were addressed during hospitalization through development of new coping skills, support meeting, safety planning, and medication adjustments. Risk Factors Assessment Male: Yes : Yes Do You Have Access To A Gun?: No (will confirm again upon d/c) Health Problems: No Mental Health Diagnoses: Yes Substance Use Disorders: Yes Previous Attempt: Yes Previous Psychiatric Hospitalization: Yes Hopelessness: No Protective Factors Assessment Taoist Beliefs: Yes Employed: Yes ([employer] -and new job starting Sun) Stable Relationships: Yes Discharge Data Lab Results 01/28/24 01/28/24 06:55 08:09 WBC 5.88 RBC 5.29 Hgb 16.0 Hct 45.2 MCV 85.4 MCH 30.2 MCHC 35.4 RDW Std Deviation 35.2 L RDW Coeff of Amada 11.4 L Plt Count 226 MPV 9.6 Immature Gran % (Auto) 0.2 Neut % (Auto) 59.2 Lymph % (Auto) 28.9 Hidalgo % (Auto) 10.0 Eos % (Auto) 1.2 Baso % (Auto) 0.5 Neut # (Auto) 3.48 Lymph # (Auto) 1.70 Hidalgo # (Auto) 0.59 Eos # (Auto) 0.07 Baso # (Auto) 0.03 Immature Gran # (Auto) 0.01 Sodium 139 Potassium 3.9 Chloride 105 Carbon Dioxide 25 Anion Gap 9 BUN 17 Creatinine 1.04 Est Cr Clr Drug Dosing 129.5 Est GFR ( Amer) 117.6 Est GFR (Non-Af Amer) 101.4 BUN/Creatinine Ratio 16.3 Glucose 95 Calcium 9.3 Total Bilirubin 0.8 AST 20 ALT 16 Alkaline Phosphatase 51 Total Protein 7.5 Albumin 4.6 Globulin 2.9 Albumin/Globulin Ratio 1.6 TSH 1.354 Urine Color Dark Yellow Urine Appearance Clear Urine pH 6.0 Ur Specific Morrow 1.026 Urine Protein Trace H Urine Glucose (UA) Negative Urine Ketones 3+ H Urine Blood Negative Urine Nitrite Negative Urine Bilirubin Negative Urine Urobilinogen Negative Ur Leukocyte Esterase Negative Urine WBC (Auto) 1-5 Urine RBC (Auto) 0-4 U Hyaline Cast (Auto) 1-5 U Epithel Cells (Auto) 5-10 H Urine Bacteria (Auto) Negative Salicylates < 3.0 L Urine Opiates Screen Neg Ur Methadone, Qual Neg Acetaminophen < 3 L Urine Barbiturates Neg Ur Phencyclidine (PCP) Neg U Amphetamin/Meth Scrn Neg MDMA (Ecstasy) Screen Neg U Benzodiazepines Scrn Neg Ur Cocaine Metabolite Neg U Marijuana (THC) Screen Pos H U Marijuana THC Carboxy 1399 H Drug Screen Comment SEE NOTE Ethyl Alcohol mg/dL < 10.0 SARS-CoV-2, RNA, NAAT NEGATIVE Hospital Course (1) Post traumatic stress disorder (PTSD): (2) Suicidal ideation: (3) Depression with suicidal ideation: (4) MELINA (generalized anxiety disorder): (5) Cannabis use disorder: Plan 01/28/2024: 1. Patient was admitted here for safety, further evaluation, and treatment. 2. Our medical people are available to evaluate and treat any medical issues that arise. 3. We will use just as needed medication right now and give him some time for his cannabis levels to drop. Will also be watching for any other symptoms of heavy marijuana use like nausea and vomiting. 4. Once the patient is more awake we will encourage him to take part in our therapeutic milieu, attend groups and activities, maintain good hygiene, and try not to isolate. 5. structural steel worker helper will set up a family meeting before discharge to make sure we have a good safety plan. We also might consider revoking his medical card for cannabis. 6. Disposition is unclear at this point. 01/29/2024: We will continue with her current level of observation and precautions. I am reassured by his bright affect. We will start propranolol 10 mg twice a day to see if that might help with his tremor. I added some as needed risperidone 0.5 mg every 8 hours as needed for any breakthrough psychosis, agitation, or severe anxiety. He also has some as needed hydroxyzine for milder anxiety and sleep. I encouraged the patient to take part in our therapeutic milieu. We will set up a family meeting, but there is not a lot of support around this young man locally. 01/30/2024: We will continue with our current level of observation and precautions. I am reassured with the progress that he is made, but I want to make sure we have a pattern of improvement before we send him home for safety. We also talked about backing off on how much cannabis he has been using. I encouraged him to keep going to groups and activities to help distract himself. : We will continue with our current level of observation and precautions. I asked him to have a low threshold to take his as needed risperidone if he is having a tough time today. At other times during the day we see him bright and interactive with peers. We also discussed how important it would be for him to back off on his cannabis use. He is interested in maybe switching from THC to CBD. 02/02/2024: Continue current medications and tx plan. CSG referral placed. 02/01/2024: Continue current medications and tx plan. Ongoing motivational interviewing. Interested in CSG. Mental Health & Subst Abuse Tx Therapist Name of Therapist: Efraín Paredes - Faheem Pitts Therapist's Date of Therapist Appointment: 02/27/24 Time of Therapist Appointment: arrive by 1:30 PM Therapy Appointment Comment: [address], [address], [facility] [id number] Agricultural Pilot Name of Agricultural Pilot: None Discharge Plan Discharge Items Patient Disposition: Home - Self-Care Reason For Visit: MDD Discharge Diagnosis: Post Traumatic Stress Disorder Activity: Resume your previous activity Non-emergency contact: Primary Care Provider and Therapist Call non-emergency contact if: you have any medication questions and your symptoms worsen Follow-up/Referrals: PCP,NO [Primary Care Provider] - Diet: Regular Addtl Attending Provider Instructions: Optional mobile apps we discussed: -Suicide safety plan -Virtual Hope Box SPECIAL CARE INSTRUCTIONS: 1. Follow through with your scheduled aftercare appointments. If unable to keep an appointment, please call to reschedule. 2. Take your medication only as prescribed. Medication should not be changed or stopped without the approval of your doctor. In the event of worsening symptoms or concerns about side effects, contact your doctor immediately. 3. Utilize new healthy coping skills, anger management skills, and stress management skills learned during your hospitalization. Journal feelings and process them with a support person. Identify stressors or situations that may result in relapse, deterioration or inappropriate behaviors and develop a plan to deal with those issues. 4. If your coping skills are ineffective and you are in crisis, contact your outpatient providers for direction. If unable to reach your providers, please call the [facility] CRISIS LINE AT , go to the [facility] walk-in center at [address], [address], [place], or go to the closest Emergency Room. 5. Avoid alcohol and un-prescribed drugs. 6. You have been provided with the Mental Health Advance Directives Pamphlet for your review. 7. Your condition is stable for discharge to outpatient level of care, but recovery is an ongoing process. Ifthoughts to harm yourself or others return, follow the safety plan developed during your stay. Planning for a safe return home includes securing weapons. Our treatment team recommends weaponsbe removed from the home until your outpatient provider reassesses your progress. In rare cases where the items themselvescannot be removed, guns and ammunitionshould be secured separatelyand keys stored by a reliable personoutside of the home. If you were admitted on an involuntary commitment, the police or other legal authorities may be involved in this process. AFTERCARE APPOINTMENTS: * Please call your insurance company prior to your scheduled appointment to confirm your aftercare providers are covered. Take your insurance information to your appointments. WHO TO CALL AND WHEN: Medical Emergencies: For questions or emergencies related to your hospital stay, please contact the Inpatient Behavioral Health Unit at [phone]. A senior medical director is on-call 23/05 for the Behavioral Health Unit for emergencies At any time you feel your situation is an emergency, you may also call 911 immediately. National Crisis Hotline: 989 Pending Studies at Discharge: No Stand-Alone Forms: My [facility] [place], Smoking Cessation Medications and DC Order Prescriptions: New propranolol 10 mg Tablet 10 mg PO BID 30 Days Qty: 60 0RF hydroxyzine HCl 25 mg Tablet 25 mg PO DAILY PRN (Reason: anxiety/insomnia) 30 Days Qty: 30 0RF Discharge Orders: Discharge Order (Routine); Ordered 02/03/24 Ordered By: Melisa Galindo Admission Data Admit Date/Time: 01/28/24 12:25 Attending Provider: Melisa Galindo Admit Provider: Grover Najera Jr Primary Care Provider: PCP,NO Other Providers: Grover Najera Jr Other Interventions: Discharge Summary Assessment (RN) Last Done: 02/03/24 10:43 PSY Interdisciplinary Discharge Planning Last Done: 02/03/24 10:43 Coding Level of Care Code 81408 D/C day mgmt > 30 min Diagnoses Post traumatic stress disorder (PTSD) F43.10 Suicidal ideation R45.851 Depression with suicidal ideation F32.A; R45.851 MELINA (generalized anxiety disorder) F41.1 Cannabis use disorder F12.90 Time Spent (min) 40
== END 2024-02-03 13:29 | disposition home or self-care (01) | DRG 882 ==
LOC: ED 06:24 → 3S 12:16 → SUATTDRO 12:25 → 3S 12:25